=== PATIENT | male | born 1975 | race Caucasian/White ===

== ENCOUNTER 2023-08-14 13:03 | Emergency (ER) | payer MEDICAID, SELFPAY ==
--- NOTE | 2023-08-14 13:08 | ED.URI ---
HPI - URI/Sore Throat General Chief Complaint: Upper Respiratory Infection Stated Complaint: Cough,Sore Throat,Facial Swelling Time Seen by Provider: 08/14/23 13:08 Source: patient Mode of arrival: ambulatory Limitations: no limitations History of Present Illness HPI Narrative: Patient is a 47-year-old male who presents with left lower jaw facial swelling. Patient states it has been swollen for 3 months but significantly worsened the last 3 or 4 days. Patient reports his lymph nodes are also swollen and does remain unchanged. Denies any dental pain but states most of his teeth are gone any has very poor dentition. Also reports pain in left ear and decreased hearing. Denies any fevers, chills, nausea, vomiting, diarrhea. Denies any better taste in mouth. Does report he is starting to have trouble swallowing due to swelling. Also reports he feels like his left eye starting to swell. Related Data Home Medications Medication Instructions Recorded Confirmed gabapentin 300 mg tablet 300 mg PO BID 08/14/23 08/14/23 Allergies Allergy/AdvReac Type Severity Reaction Status Date / Time No Known Allergies Allergy Verified 08/14/23 13:19 Review of Systems Review of Systems: All systems reviewed & are unremarkable except as noted in HPI and below Constitutional: Constitutional: Denies body ache(s), Denies chills, Denies fatigue, Denies fever(s), Denies headache(s), Denies malaise and Denies weakness Eyes: Eyes: Denies blurry vision, Denies itchy eyes and Denies loss of vision ENT: Denies otalgia, Denies headache(s), Reports hearing loss, Denies nasal congestion, Denies sinus pain, Denies sore throat and Reports other (Left mandibular swelling, difficulty swallowing) Cardiovascular: Cardiovascular: Denies chest pain, Denies irregular heart rhythm and Denies dyspnea Respiratory: Respiratory: Reports cough and Denies dyspnea Gastrointestinal: Gastrointestinal: Denies abdominal pain, Denies diarrhea, Denies nausea and Denies vomiting Musculoskeletal: Musculoskeletal: Denies back pain, Denies myalgias and Denies arthralgias Integumentary/Breasts: Skin/Breast: Denies pruritus and Denies rash Neurologic: Denies headache(s), Denies loss of vision and Denies weakness Psychiatric: Psychiatric: Reports no additional psychiatric complaints Endocrine: Endocrine: Denies fatigue Allergic/Immunologic: Allergic/Immunologic: Denies itchy eyes PMFSH Comments At time of signature, agree with nursing past medical, surgical, social and family history. There is no relevant family history pertinent to the presenting complaint. Exam Const: General: cooperative, healthy appearing, comfortable, no acute distress and well nourished Nutritional Appearance: well nourished Orientation/consciousness: patient oriented x3 Limitations: no limitations HENMT: Head: normal to inspection, normocephalic and atraumatic Ears: hearing grossly normal bilaterally, external ears normal, TM normal on the right, EAC's normal, no periauricular adenopathy and TM abnormal dull on the left and erythematous on the left Face/Nose/Sinus: Normal external nose present, Normal nasal mucous membranes and turbinates present, normal facial exam, sinuses nontender and face symmetric Face and sinus: normal facial exam, sinuses nontender, face symmetric and edema on the left mandible Mouth: Yes Normal oral and palatal mucosa present, Yes lip normal, Yes tongue normal, Yes Normal salivary glands and ducts present, Yes oropharynx normal and Yes moist mucous membranes Mouth/tongue images: 1. Area of erythema and wasting appearance, no necrosis. No drainage present. Very poor dentation with multiple teeth missing on both top and bottom. Teeth and gingiva: poor dentition Throat: posterior oropharynx normal, tonsils normal and uvula midline Eyes: General: appearance normal, both eyes and all related structures Alignment and Position: alignment normal and position normal Periorbi
[2023-08-14 13:24] VITALS: BP 156/88; PULSE 87; RESP 16; TEMP 36.2; O2SAT 98
== END 2023-08-14 14:12 | disposition short-term general hospital (02) ==
PROVIDERS: Emergency Provider Nurse Practitioner Family
DX: R22.0 Localized swelling, mass and lump, head (principal)
CPT/HCPCS: 99212; G0463

== ENCOUNTER 2023-08-14 14:30 | Inpatient (IN) | payer MEDICAID, SELFPAY ==
--- NOTE | ~2023-08-14 | CT_ITS ---
EXAMINATION: CT brain wo/w & sinus wo con DATE: 08/15/2023 10:13 INDICATION: 2 months of sinus congestion. Lymphadenopathy. TECHNIQUE: 1. Computed tomography (CT) of the head was performed without and with 100 mL Omnipaque-[address] of the paranasal sinuses was performed without intravenous contrast. Sagittal and coronal reconst ructions were obtained. The mA was adjusted according to patient size. Iterative reconstruction techn ique was employed. The dose-length product of the combined procedures was 1593 mGy-cm. COMPARISON: CT neck dated 08/14/2023 FINDINGS: Head CT: No acute intracranial hemorrhage, acute infarction or abnormal extra axial fluid collection. Small ol d lacunar infarct in the left frontal lobe white matter. Ventricles are normal and symmetric. No mass /mass effect. No abnormally enhancing brain lesions. Cerebral arterial arborization appears symmetric . Bilateral mastoid effusions. The orbits are normal. Paranasal sinus CT: Mild mucosal thickening the right maxillary and ethmoid sinuses. More prominent moderate mucosal thic kening in the left sphenoid, maxillary and ethmoid sinuses, the latter nearly completely opacified. T here is posterior layering fluid at the left frontoethmoidal recess, the left sphenoid sinus and in t he left maxillary sinus with greater than simple fluid attenuation potentially representing blood. Th ere is occlusion of the bilateral ostiomeatal units. Poorly delineated soft tissue mass which occupies the dental director and parapharyngeal spaces with effac ement of the intervening fat planes. Again seen is a destructive lytic lesion involving the body and ramus of the left mandible. Additional more subtle osteolysis is seen with permeative appearance to t he posterior wall of the left maxillary sinus and left pterygoid plates. There are multiple enlarged right level 2 jugular chain lymph nodes. Additional prominent left-sided cervical lymphadenopathy see n more caudally on the prior neck CT. IMPRESSION: 1. Poorly defined soft tissue mass concerning for malignancy involving enlarging the left dental director and parapharyngeal spaces which appears to invade the adjacent left mandible, the posterior wall of t he left maxillary sinus and the left pterygoid plates. 2. Bilateral cervical lymphadenopathy which is likely metastatic. Patient has a planned ultrasound-gu ided biopsy. 3. Small old lacunar infarct in the left frontal lobe white matter. Otherwise unremarkable pre and po stcontrast CT of the brain. 4. Extensive sinus disease with left-sided predominance. There is some higher attenuation fluid withi n the left maxillary sinus which could represent blood related to the posterior osteolysis. Reviewed, dictated and finalized at location A. LIANCE QUALITY PERFORMANCE ANALYST IMPRESSION: 1. Poorly defined soft tissue mass concerning for malignancy involving enlargin g the left dental director and parapharyngeal spaces which appears to invade the adj acent left mandible, the posterior wall of the left maxillary sinus and the lef t pterygoid plates. 2. Bilateral cervical lymphadenopathy which is likely metastatic. Patient has a planned ultrasound-guided biopsy. 3. Small old lacunar infarct in the left frontal lobe white matter. Otherwise u nremarkable pre and postcontrast CT of the brain. 4. Extensive sinus disease with left-sided predominance. There is some higher a ttenuation fluid within the left maxillary sinus which could represent blood re lated to the posterior osteolysis.
--- NOTE | ~2023-08-14 | US_ITS ---
EXAMINATION: US biopsy lymph node DATE: 08/16/2023 13:03 INDICATION: Bilateral cervical lymphadenopathy TECHNIQUE: The procedure including the risks and benefits was discussed with the patient. Risks discu ssed included bleeding and infection. The patient understood the risks and agreed to proceed. The sk in overlying the left neck was prepped and draped in usual sterile fashion. Anesthetic was administe red with 1% lidocaine subcutaneously. An 18 gauge core biopsy needle was advanced under continuous u ltrasound observation to the lesion of interest. 7 core biopsy specimens were obtained, 3 placed in formalin and 4 in RPMI media. The needle was removed and the entry site was cleaned and dressed. Po st procedure ultrasound demonstrated a small amount of hemorrhage along the biopsy site of the biopsi ed lymph node. FINDINGS: Ultrasound images demonstrate multiple enlarged left cervical lymph nodes including a likel y necrotic 2.3 cm left submandibular lymph node. Subsequent images demonstrate biopsy needle advanced into a 2.2 x 1.5 cm left jugular chain lymph node. IMPRESSION: 1. Successful Ultrasound-guided biopsy of one of multiple enlarged left cervical lymph node suspiciou s for metastatic disease. Reviewed, dictated and finalized at location A. ITION PARTNER IMPRESSION: 1. Successful Ultrasound-guided biopsy of one of multiple enlarged left cervica l lymph node suspicious for metastatic disease.
--- NOTE | ~2023-08-14 | CT_ITS ---
EXAMINATION: CT chest abdomen pelvis w con DATE: 08/15/2023 10:14 INDICATION: Lymphadenopathy, lung nodules TECHNIQUE: Transaxial computed tomographic images of the chest, abdomen, and pelvis were obtained aft er the administration of 100 cc of Omnipaque 350 intravenous contrast. The dose-length product (DLP) was 804.27 mGy-cm. Automated exposure control and iterative reconstruction technique were employed. COMPARISON: 08/14/2023 FINDINGS: CHEST CT: Soft tissue masses in the submandibular space on the left likely reflect lymphadenopathy. There are a lso pathologically enlarged left posterior cervical triangle lymph nodes. There are multiple ill-defi janine nodules of the lungs with an upper lung zone predominance. There is mild dependent atelectasis. N o pleural effusion or pneumothorax. The heart size is normal. ABDOMEN/PELVIS CT: The liver, pancreas, gallbladder, and adrenal glands are normal. There is mild splenomegaly. The kidn eys are unremarkable. There are prominent, but not pathologically enlarged, retroperitoneal lymph nod es. No free intraperitoneal gas or evidence of bowel obstruction. Surgical changes at the cecum likel y reflect appendectomy. There is mild lumbar spondylosis at L5-S1. Contrast from yesterday's CT is se en in the urinary bladder. IMPRESSION: 1. Ill-defined nodules of the lungs, likely infection/inflammation. Recommend CT follow-up given the suspicious findings in the neck to exclude underlying malignancy. 2. Mild splenomegaly. 3. Prominent, but not pathologically enlarged, retroperitoneal lymph nodes. 4. Soft tissue masses in the submandibular space on the left, likely lymphadenopathy. Reviewed, dictated and finalized at location B. D OPERATOR IMPRESSION: 1. Ill-defined nodules of the lungs, likely infection/inflammation. Recommend C T follow-up given the suspicious findings in the neck to exclude underlying mal ignancy. 2. Mild splenomegaly. 3. Prominent, but not pathologically enlarged, retroperitoneal lymph nodes. 4. Soft tissue masses in the submandibular space on the left, likely lymphadeno eva.
--- NOTE | ~2023-08-14 | CT_ITS ---
EXAMINATION: CT soft tissue neck w con DATE: 08/14/2023 19:56 INDICATION: Left jaw swelling and hoarseness TECHNIQUE: Computed tomography (CT) of the neck was performed with 75 mL Omnipaque-350 intravenous co ntrast. Automated exposure control and iterative reconstruction technique were employed. The dose-daylin gth product was 472.27 mGy-cm. COMPARISON: None FINDINGS: Lytic lesion in the body and ramus of the left mandible which erodes through both the medial and late ral sided cortices. No current pathologic fracture although this is at increased risk . There are enl arged submandibular and jugular chain lymph nodes concerning for metastatic disease. The largest subm andibular measures 2.4 x 1.9 cm heterogeneous attenuation suggesting secondary necrosis. Also of a co uple there is also enlarged right-sided level 2 jugular chain lymph node which measures 3.5 x 1.9 x 1 .1 cm. No other lytic bone lesions identified. Orbits are normal. Mucosal thickening in the paranasal sinuses with opacification multiple ethmoid ai r cells and some dependently layering fluid in the left maxillary and sphenoid sinuses. Small left ma stoid effusion. Submandibular and parotid glands are symmetric. Thyroid gland is unremarkable. The va sculature is patent and normal in caliber. Superior mediastinum is unremarkable. Mild cervical spondy losis. Respiratory motion mosaic attenuation in the visualized upper lungs likely related to expirato ry phase of imaging with some subsegmental air trapping related to small airway disease. There are fe w small ill-defined nodular opacities in the visualized upper lungs with appearance favoring infectio n over metastatic disease. IMPRESSION: 1. Osteolytic lesion in the left mandible concerning for malignancy which could be either primary or more likely metastatic. 2. Bilateral cervical lymphadenopathy also suspicious for metastatic disease. Recommend ultrasound-gu ided core needle biopsy. 3. A few small ill-defined nodular opacity in the bilateral upper lungs with appearance favoring infe ctious/inflammatory etiology over metastatic disease. Consider follow-up dedicated chest CT at full e xpansion. Could also consider including the abdomen and pelvis to assess for other potential etiologi es of primary disease. Reviewed, dictated and finalized at location A. EZER OPERATOR IMPRESSION: 1. Osteolytic lesion in the left mandible concerning for malignancy which could be either primary or more likely metastatic. 2. Bilateral cervical lymphadenopathy also suspicious for metastatic disease. R ecommend ultrasound-guided core needle biopsy. 3. A few small ill-defined nodular opacity in the bilateral upper lungs with ap pearance favoring infectious/inflammatory etiology over metastatic disease. Con vp scientific follow-up dedicated chest CT at full expansion. Could also consider inclu ding the abdomen and pelvis to assess for other potential etiologies of primary disease.
[2023-08-14 14:34] VITALS: BP 132/84; PULSE 94; RESP 16; TEMP 36.4; O2SAT 100
[2023-08-14] MEDS: SODIUM CHLORIDE 0.9% IV 1,000 ML 999 ML IV CONT (19:02)
[2023-08-14 19:08] LABS: Basophils Absolute Auto 0.1 K/mm3 (0.0-0.1); Basophils Percent Auto 0.8 % (0.2-1.2); Eosinophils Absolute Auto 0.4 K/mm3 (0-0.3); Eosinophils Percent Auto 7.5 % (0-4.4); Hematocrit 34.6 % (42.0-52.0); Hemoglobin 11.6 g/dL (14.0-18.0); Immature Granulocyte Absolute 0.01 K/mm3 (0.00-0.031); Immature Granulocyte Percent A 0.2 % (0-0.5); Lymphocytes Absolute Auto 0.45 K/mm3 (0.9-3.2); Lymphocytes Percent Auto 7.6 % (18.3-44.2); Mean Corpuscular HGB Conc 33.5 g/dl (32-36); Mean Corpuscular Volume 83.6 fl (80-100); Mean Platelet Volume 7.8 fl (7.4-10.4); Monocytes Absolute Auto 0.6 K/mm3 (0.1-0.6); Neutrophils Absolute Auto 4.4 K/mm3 (1.3-6.7); Neutrophils Percent Auto 73.9 % (45.5-73.1); Platelet Count Result 209 k/mm3 (150-375); Red Blood Count 4.14 M/mm3 (4.6-6.20); Red Cell Distribution Width 12.9 % (11.5-14.5); White Blood Count 5.9 K/mm3 (4.5-10.0)
[2023-08-14] MEDS: PIPERACILLIN/TAZ 4.5G/NS 100ML 4.5 GM/100 ML BAG IVPB (19:12)
--- NOTE | 2023-08-14 19:16 | ED.GENADULT ---
HPI - General Adult General Chief complaint: Unspecified Stated complaint: ear infection, swollen lymph nodes Time Seen by Provider: 08/14/23 18:14 Source: patient and RN notes reviewed Mode of arrival: ambulatory Limitations: no limitations History of Present Illness HPI narrative: This is a 47 year old male who presents for evaluation of left jaw swelling. Patient states he starting having an illness 2 -3 months ago. He states he first had mild cough and congestion, and this resolved after 1 week. He later developed right ear ache and sinus congestion but that resolved. He noticed 3 days ago he develop throat itching and hoarseness. He states drinking water seems to help with these symptoms. He also noticed lymph node swelling under left jaw that has gotten worse over past couple of days. He has chronically poor dentition. He has noticed mild left ear discomfort and feels pressure under his left cheek. He denies fever or chills. He was seen at [facility] today and he was sent to ER for further evaluation. Related Data Home Medications Medication Instructions Recorded Confirmed gabapentin 300 mg tablet 300 mg PO BID 08/14/23 08/14/23 Allergies Allergy/AdvReac Type Severity Reaction Status Date / Time No Known Allergies Allergy Verified 08/14/23 13:19 Review of Systems Constitutional: Constitutional: Denies weakness ENT: Reports change in voice, Reports otalgia, Reports nasal congestion and Reports post nasal drip Cardiovascular: Cardiovascular: Denies syncope, Denies rapid heart rate, Denies irregular heart rhythm, Denies leg edema and Reports dyspnea Respiratory: Respiratory: Denies chest congestion, Reports cough, Denies hemoptysis, Denies excessive phlegm production and Denies dyspnea Gastrointestinal: Gastrointestinal: Denies abdominal pain, Denies hematochezia, Denies diarrhea and Denies vomiting Genitourinary: Genitourinary: Denies hematuria, Denies dysuria, Denies penile discharge and Denies testicular pain Musculoskeletal: Musculoskeletal: Denies joint swelling, Denies loss of height and Denies muscle weakness Neurologic: Denies syncope, Denies focal weakness and Denies weakness PMFSH Surgical History Surgical History (Updated 08/14/23 @ 19:18 by Adriana Kowalski MD) H/O knee surgery Social History Social History (Updated 08/14/23 @ 19:18 by Adriana Kowalski MD) Tobacco type: e-cigarettes/vaping Substance use: never Exam Const: General: cooperative, comfortable and no acute distress Orientation/consciousness: patient oriented x3 Limitations: no limitations HENMT: Head: normal to inspection and normocephalic Ears: TM normal on the right and TM abnormal dull on the left Face/Nose/Sinus: Normal external nose present, Normal nares present and No nasal polyps present Face and sinus: sinuses nontender, no ecchymosis and no erythema Mouth: Yes lip normal, Yes moist mucous membranes, No audible dysphonia, No drooling, No muffled voice, Yes tongue abnormal other (left side tongue appears to be mildly elevated, uvula midline) and Yes other (soft floor of tongue) Teeth and gingiva: poor dentition Throat: uvula midline and no uvular edema Other: left submandibular firm area of swelling likely lymph node, no erythema, unlikely corinna Eyes: Pupils: Equal, round and reactive pupils present EOM: EOMs intact bilaterally Neck: Neck: full ROM, trachea midline and submandibular swelling Chest: Chest palpation & inspection: normal inspection of the chest Resp: Effort & Inspection: normal respiratory effort Auscultation: clear to auscultation bilaterally Cardio: Jugular venous distension: no JVD Rate: regular rate Rhythm: regular rhythm Skin: General skin exam: normal color and no rashes or lesions noted Neuro: General: patient oriented x3 Cranial nerves: Yes CN's II-XII intact bilaterally Psych: Appearance: grossly normal Mental Status: mental status grossly normal Speech and mo
[2023-08-14 19:19] LABS: Alanine Aminotransferase 12 U/L (6-50); Albumin Level 3.8 g/dL (3.5-5.1); Alkaline Phosphatase 77 U/L (38-126); Anion Gap 6 mmol/L (8-16); Aspartate Amino Transferase 22 U/L (17-59); Bilirubin,Total 0.7 mg/dL (0.2-1.3); Blood Urea Nitrogen 7 mg/dL (9-20); Calcium 10.1 mg/dL (8.4-10.2); Carbon Dioxide 34 mmol/L (22-30); Chloride 91 mmol/L (98-107); Estimated CRCL calculation 73 ml/min; Estimated Glomerular Filt Rate > 60; Glucose 106 mg/dL (65-110); Potassium 4.3 mmol/L (3.4-5.0); Sodium 131 mmol/L (137-145)
[2023-08-14 19:21] LABS: CRP 0.6 mg/dL (<1.0)
--- NOTE | 2023-08-14 21:10 | PM.IMHP ---
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 Presents to the emergency room after noting lymph nodes in the submandibular space present for the last 2 months or so along with left-sided swelling congestion of the nose and sore throat in the last week or so, patient denies any fevers, rigors, chills, muscle aches and pains, weight loss has had good appetite denies any dysphagia or odynophagia. Denies a finding lymphadenopathies at any other site. Preliminary workup was significant for CT soft tissue of the neck was reported as: EXAMINATION: CT soft tissue neck w con DATE: 08/14/2023 19:56 INDICATION: Left jaw swelling and hoarseness TECHNIQUE: Computed tomography (CT) of the neck was performed with 75 mL Omnipaque-350 intravenous contrast. Automated exposure control and iterative reconstruction technique were employed. The dose-length product was 472.27 mGy-cm. COMPARISON: None FINDINGS: Lytic lesion in the body and ramus of the left mandible which erodes through both the medial and lateral sided cortices. No current pathologic fracture although this is at increased risk . There are enlarged submandibular and jugular chain lymph nodes concerning for metastatic disease. The largest submandibular measures 2.4 x 1.9 cm heterogeneous attenuation suggesting secondary necrosis. Also of a couple there is also enlarged right-sided level 2 jugular chain lymph node which measures 3.5 x 1.9 x 1.1 cm. No other lytic bone lesions identified. Orbits are normal. Mucosal thickening in the paranasal sinuses with opacification multiple ethmoid air cells and some dependently layering fluid in the left maxillary and sphenoid sinuses. Small left mastoid effusion. Submandibular and parotid glands are symmetric. Thyroid gland is unremarkable. The vasculature is patent and normal in caliber. Superior mediastinum is unremarkable. Mild cervical spondylosis. Respiratory motion mosaic attenuation in the visualized upper lungs likely related to expiratory phase of imaging with some subsegmental air trapping related to small airway disease. There are few small ill-defined nodular opacities in the visualized upper lungs with appearance favoring infection over metastatic disease. IMPRESSION: 1. Osteolytic lesion in the left mandible concerning for malignancy which could be either primary or more likely metastatic. 2. Bilateral cervical lymphadenopathy also suspicious for metastatic disease. Recommend ultrasound-guided core needle biopsy. 3. A few small ill-defined nodular opacity in the bilateral upper lungs with appearance favoring infectious/inflammatory etiology over metastatic disease. Consider follow-up dedicated chest CT at full expansion. Could also consider including the abdomen and pelvis to assess for other potential etiologies of primary disease. Review of Systems Review of Systems: Left side submandibular nodes, congested on of the nose, sore throat Constitutional: Constitutional: Denies chills, Denies fatigue, Denies fever(s), Denies malaise, Denies night sweats, Denies poor appetite and Denies weight loss Eyes: Eyes: Denies change in vision ENT: Denies dysphagia, Denies vertigo, Denies dizziness, Reports nasal congestion, Denies neck pain and Denies odynophagia Cardiovascular: Cardiovascular: Denies chest pain, Denies radiating jaw, neck or arm pain and Denies palpitations Respiratory: Respiratory: Denies chest congestion, Denies cough, Denies excessive phlegm production and Denies dyspnea Gastrointestinal: Gastrointestinal: Denies abdominal pain, Denies dyspepsia, Denies heartburn, Denies diarrhea, Denies nausea and Denies vomiting Genitourinary: Genitourinary: Denies dysuria and Denies flank pain
[2023-08-14 22:05] VITALS: BP 150/85; PULSE 72; RESP 15; O2SAT 99
[2023-08-14 22:37] VITALS: BMI 25.7
[2023-08-14 22:38] VITALS: BP 145/89; PULSE 79; RESP 16; TEMP 36.7; O2SAT 95
[2023-08-14] MEDS: SODIUM CHLORIDE 0.9% IV 1,000 ML 125 ML IV CONT (22:38)
[2023-08-14] MEDS: CLINDAMYCIN 600 MG/D5W 50 ML 600 MG/50 ML PIGGYBACK 100 MG IVPB (22:43)
--- NOTE | 2023-08-14 22:51 | ADMGEN ---
This patient, Brian Tilley, was admitted to Medical Room 345-. Patient/family oriented to hospital policies and general routines including ID bracelet, bed and alarms, visiting hours, pain management, procedures, bathroom and other care routines, personal items, smoking policy, room service/diet, and visiting hours. Information on how to activate the Rapid Response Team has been discussed. Patient/Family are encouraged to report perceived risks to care and to ask questions if they do not understand what they are told or what they should do.
[2023-08-15 04:24] VITALS: BP 116/74; PULSE 85; RESP 18; TEMP 36.8; O2SAT 98
[2023-08-15 06:07] LABS: Basophils Percent Auto 0.2 % (0.2-1.2); Eosinophils Percent Auto 0.2 % (0-4.4); Hematocrit 32.8 % (42.0-52.0); Immature Granulocyte Absolute 0.03 K/mm3 (0.00-0.031); Immature Granulocyte Percent A 0.6 % (0-0.5); Lymphocytes Absolute Auto 0.38 K/mm3 (0.9-3.2); Lymphocytes Percent Auto 7.5 % (18.3-44.2); Mean Corpuscular HGB Conc 33.5 g/dl (32-36); Mean Corpuscular Hemoglobin 28.1 pg (26-34); Mean Corpuscular Volume 83.7 fl (80-100); Mean Platelet Volume 8.3 fl (7.4-10.4); Monocytes Absolute Auto 0.1 K/mm3 (0.1-0.6); Monocytes Percent Auto 2.6 % (2.6-8.5); Neutrophils Absolute Auto 4.5 K/mm3 (1.3-6.7); Neutrophils Percent Auto 88.9 % (45.5-73.1); Platelet Count Result 216 k/mm3 (150-375); Red Blood Count 3.92 M/mm3 (4.6-6.20); Red Cell Distribution Width 12.9 % (11.5-14.5)
[2023-08-15] MEDS: CLINDAMYCIN 600 MG/D5W 50 ML 600 MG/50 ML PIGGYBACK 100 MG IVPB ×3 (06:17→22:40)
[2023-08-15] MEDS: SODIUM CHLORIDE 0.9% IV 1,000 ML 125 ML IV CONT ×3 (06:17→22:40)
[2023-08-15 06:24] LABS: Alanine Aminotransferase 11 U/L (6-50); Albumin Level 3.6 g/dL (3.5-5.1); Alkaline Phosphatase 66 U/L (38-126); Anion Gap 5 mmol/L (8-16); Aspartate Amino Transferase 21 U/L (17-59); Bilirubin,Total 0.6 mg/dL (0.2-1.3); Blood Urea Nitrogen 9 mg/dL (9-20); Calcium 9.2 mg/dL (8.4-10.2); Carbon Dioxide 30 mmol/L (22-30); Chloride 95 mmol/L (98-107); Estimated CRCL calculation 73 ml/min; Estimated Glomerular Filt Rate > 60; Glucose 127 mg/dL (65-110); Potassium 4.6 mmol/L (3.4-5.0); Sodium 130 mmol/L (137-145)
[2023-08-15] MEDS: GABAPENTIN 400 MG CAPSULE 800 MG PO ×3 (08:50→17:27)
--- NOTE | 2023-08-15 09:27 | PM.IMPN ---
Progress Note: A&P Assessment and Plan (1) Submandibular lymphadenopathy: Code(s): R59.0 - Localized enlarged lymph nodes Status: Acute Assessment and Plan: 08/14/23: (copied from chart) Admit to regular medical floor General surgery consult for excisional biopsy Patient started on antibiotics as well noted to have poor dentition Supportive care 08/15/23: CT soft tissue neck with contrast revealed osteolytic lesion in the left mandible concerning for malignancy which could be either primary or murmur likely metastatic, bilateral cervical lymphadenopathy also suspicious for metastatic disease, a few small ill defined nodule obesity in the bilateral upper lungs with appearance favoring infectious / inflammatory etiology over metastatic disease. CT of the chest abdomen pelvis with contrast revealed ill-defined nodules of the lungs, likely infection /inflammation, mild splenomegaly, prominent but not pathologically enlarged retroperitoneal lymph nodes, soft tissue masses in the submandibular space on the left likely lymphadenopathy. CT of the brain with and without contrast and sinus without contrast revealed poorly defined soft tissue mass concerning for malignancy involving enlarging the left production control coordinator and parapharyngeal spaces which appears to invade the adjacent left mandible, the posterior wall of the left maxillary sinus and the left pterygoid plates. bilateral cervical lymphadenopathy the which is likely metastatic, extensive sinus disease with left-sided predominance. There is some higher attenuation fluid within the left maxillary sinus which could represent blood related to the posterior osteolysis. family history of esophageal cancer, father , age mid 60s, . Liver enzymes normal, alk-phos 66, lactate dehydrogenase 191, TSH 0.241, calcium 8.2 will check an HIV panel white blood cell count is 5.0 general surgery was consulted plan for ultrasound-guided biopsy cervical lymph node tomorrow with pathology to follow procalcitonin 0.1, will continue clindamycin IV for now (2) Lesion of mandible: Code(s): M27.9 - Disease of jaws, unspecified Status: Acute Assessment and Plan: 08/14/23:(copied from chart) Lymph node for biopsy 08/15/23: see above Plan discussed CT results with patient and plan of care including ultrasound-guided biopsy of his lymph nodes. Time Spent With Patient Time with patient: Greater than 35 minutes Subjective Date/time seen: 08/15/23 09:27 Interval history: Interval history 08/15/23: This is a 47 year old male who presented tot he hospital on 08/14/23 with lymph node swelling that has been present for 2 months, congestion of the nose and sore throat in the last week. Work up in the hospital include a CT soft tissue neck with contrast that reveals osteolytic lesion in the left mandible concerning for malignancy, bilateral cervical lymphadenopathy suspicious for metastatic disease, a few small ill-defined nodular opacity in the bilateral upper lungs with appearance favoring infectious/inflammatory etiology versus metastatic disease. Patient has a family history of throat cancer. General surgery was consulted. He was given a dose of Zosyn and dexamethasone while in the ED, started on IVF, and clindamycin IV. On examination today patient is alert oriented x4. He reports a little discomfort around the left jaw But nothing that requires did take pain medication for at this time. He reports nasal congestion today. He states that he use sinus medication and a Neti pot at home which gave a little better relief. He also stated that his symptoms would get better making him think that he was on the mend and then he was started getting worse again and this has happened over the course of 2 months. He denies any dizziness, lightheadedness, headache, blurred vision, nausea, vomiting, diarrhea, shortness of breath, chest pain. He states that his father had esoph
--- NOTE | 2023-08-15 09:44 | PM.CNGS ---
Assessment and Plan Assessment and plan (1) Cervical lymphadenopathy: Code(s): R59.0 - Localized enlarged lymph nodes Status: Acute Assessment and Plan: CT soft tissues of neck showed bilateral cervical lymphadenopathy and left mandibular lesion concerning for malignancy, possible metastatic disease. Recommended ultrasound-guided core needle biopsy of cervical lymphadenopathy. Discussed case with Dr. Blank and the Hospitalist. Will order US-guided lymph node core needle biopsy. If unable to be done today, okay to start an oral diet since he is not having issues swallowing. Recommend to continue work-up for possible primary malignancy. (2) Lesion of mandible: Code(s): M27.9 - Disease of jaws, unspecified Status: Acute Plan I have discussed the patient's case and plan of care with Dr. Blank. History of Present Illness Consult details Consult date: 08/15/23 Reason for consult: other (Cervical lymphadenopathy, mandibular lesion) Requesting physician: Adriana Kowalski MD Narrative: This is a 47-year-old man who we have been asked to see in surgical consultation for cervical lymphadenopathy and left mandibular lesion. He has noticed bilateral neck swelling that he thought was lymph node swelling over the past 2.5-3 months. This has been mild and he has not seen a medica provider for this problems. Over the past week, he began to notice left facial swelling that became progressively more prominent over the past 2-3 days. He also reports attributed mouth dryness, productive cough, and nasal congestion intermittently over the past month. He has been waking up at night over the past few nights feeling like he can't breathe, which would improve after drinking water to wet his mouth and blowing his nose or doing the yesy pot. He presented to urgent care yesterday and was referred to the ER. In the ER, labs showed anemia with hemoglobin 11.6 and [address] hyp[address]. CT soft tissues of neck showed osteolytic lesion in the left mandible concerning for malignancy, bilateral cervical lymphadenopathy suspicious for metastatic disease recommend US-guided core needle biopsy, and a few small ill-defined nodular opacity in the bilateral upper lungs. He was admitted. He is seen on the medical floor. With further questioning, he denies recent weight loss, fatigue, change in bowel habits, or any other complaints. There is some pain associated with the left jaw swelling. He has been eating a solid diet and able to swallow without difficulties. Review of Systems Review of Systems: All systems reviewed & are unremarkable except as noted in HPI and below Constitutional: Constitutional: Reports as per HPI, Reports no additional constitutional complaints, Denies anorexia, Denies body ache(s), Denies chills, Denies fatigue, Denies fever(s), Denies lethargy, Denies weakness and Denies weight loss Respiratory: Respiratory: Reports as per HPI, Reports no additional respiratory complaints and Reports cough Gastrointestinal: Gastrointestinal: Reports as per HPI, Reports no additional gastrointestinal complaints, Denies melena, Denies hematochezia, Denies change in bowel habits, Denies diarrhea, Denies loose stools, Denies nausea and Denies vomiting PMFSH Surgical History Surgical History H/O knee surgery Family History Family History Father Throat cancer Social History Social History Smoking status: Never smoker Tobacco type: e-cigarettes/vaping Alcohol intake: never Substance use: never Lack of Transportation: YES Lack of Food: Never True Current Housing: I Have Housing Concerned About Future Housing: No Difficulty Paying Gas/Electric Bills: No Difficulty Paying for Meds: No Currently Unemployed: No Education: Trade/Vocational Certificate 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
[2023-08-15 10:31] LABS: Procalcitonin 0.1 ng/mL
[2023-08-15 10:51] LABS: Thyroid Stimulating Hormone 0.241 uIU/mL (0.465-4.680)
[2023-08-15 11:49] LABS: Lactate Dehydrogenase 191 U/L (120-246)
[2023-08-15 14:00] VITALS: BP 148/84; PULSE 81; RESP 18; TEMP 36.9; O2SAT 99
[2023-08-15 14:02] LABS: INR 1.1; Prothrombin Time 14.5 Seconds (11.1-14.7)
[2023-08-15 18:54] LABS: HIV 1/2 Ab P24 Ag Result Negative (Negative)
[2023-08-15 22:32] VITALS: BP 144/93; PULSE 72; RESP 20; TEMP 36.4; O2SAT 99
[2023-08-16] MEDS: CLINDAMYCIN 600 MG/D5W 50 ML 600 MG/50 ML PIGGYBACK 100 MG IVPB ×2 (05:24→16:01)
[2023-08-16 05:37] LABS: Basophils Percent Auto 0.8 % (0.2-1.2); Eosinophils Absolute Auto 0.3 K/mm3 (0-0.3); Eosinophils Percent Auto 5.8 % (0-4.4); Hematocrit 32.2 % (42.0-52.0); Immature Granulocyte Absolute 0.02 K/mm3 (0.00-0.031); Immature Granulocyte Percent A 0.4 % (0-0.5); Mean Corpuscular HGB Conc 34.2 g/dl (32-36); Mean Corpuscular Hemoglobin 28.9 pg (26-34); Mean Corpuscular Volume 84.7 fl (80-100); Mean Platelet Volume 8.3 fl (7.4-10.4); Monocytes Absolute Auto 0.4 K/mm3 (0.1-0.6); Monocytes Percent Auto 8.6 % (2.6-8.5); Neutrophils Absolute Auto 3.7 K/mm3 (1.3-6.7); Neutrophils Percent Auto 74.4 % (45.5-73.1); Platelet Count Result 185 k/mm3 (150-375); Red Cell Distribution Width 13.1 % (11.5-14.5)
[2023-08-16 05:47] LABS: Alanine Aminotransferase 12 U/L (6-50); Albumin Level 3.6 g/dL (3.5-5.1); Alkaline Phosphatase 65 U/L (38-126); Anion Gap 5 mmol/L (8-16); Aspartate Amino Transferase 24 U/L (17-59); Bilirubin,Total 0.7 mg/dL (0.2-1.3); Blood Urea Nitrogen 10 mg/dL (9-20); Calcium 8.9 mg/dL (8.4-10.2); Carbon Dioxide 29 mmol/L (22-30); Chloride 97 mmol/L (98-107); Estimated CRCL calculation 73 ml/min; Estimated Glomerular Filt Rate > 60; Glucose 91 mg/dL (65-110); Potassium 3.7 mmol/L (3.4-5.0); Sodium 131 mmol/L (137-145)
[2023-08-16 06:00] VITALS: BP 142/80; PULSE 68; RESP 21; TEMP 36.7; O2SAT 100
--- NOTE | 2023-08-16 09:51 | PM.IMPN ---
Progress Note: A&P Assessment and Plan (1) Submandibular lymphadenopathy: Code(s): R59.0 - Localized enlarged lymph nodes Status: Acute Assessment and Plan: 08/14/23: (copied from chart) Admit to regular medical floor General surgery consult for excisional biopsy Patient started on antibiotics as well noted to have poor dentition Supportive care 08/15/23: CT soft tissue neck with contrast revealed osteolytic lesion in the left mandible concerning for malignancy which could be either primary or murmur likely metastatic, bilateral cervical lymphadenopathy also suspicious for metastatic disease, a few small ill defined nodule obesity in the bilateral upper lungs with appearance favoring infectious / inflammatory etiology over metastatic disease. CT of the chest abdomen pelvis with contrast revealed ill-defined nodules of the lungs, likely infection /inflammation, mild splenomegaly, prominent but not pathologically enlarged retroperitoneal lymph nodes, soft tissue masses in the submandibular space on the left likely lymphadenopathy. CT of the brain with and without contrast and sinus without contrast revealed poorly defined soft tissue mass concerning for malignancy involving enlarging the left auto body mechanic apprentice and parapharyngeal spaces which appears to invade the adjacent left mandible, the posterior wall of the left maxillary sinus and the left pterygoid plates. bilateral cervical lymphadenopathy the which is likely metastatic, extensive sinus disease with left-sided predominance. There is some higher attenuation fluid within the left maxillary sinus which could represent blood related to the posterior osteolysis. family history of esophageal cancer, father , age mid 60s, . Liver enzymes normal, alk-phos 66, lactate dehydrogenase 191, TSH 0.241, calcium 8.2 will check an HIV panel white blood cell count is 5.0 general surgery was consulted plan for ultrasound-guided biopsy cervical lymph node tomorrow with pathology to follow procalcitonin 0.1, will continue clindamycin IV for now 08/16/23: (2) Lesion of mandible: Code(s): M27.9 - Disease of jaws, unspecified Status: Acute Assessment and Plan: 08/14/23:(copied from chart) Lymph node for biopsy 08/15/23: see above Plan Time Spent With Patient Time with patient: Greater than 35 minutes Subjective Date/time seen: 08/16/23 09:51 Interval history: Interval history 08/15/23: This is a 47 year old male who presented tot [facility] on 08/14/23 with lymph node swelling that has been present for 2 months, congestion of the nose and sore throat in the last week. Work up in the hospital include a CT soft tissue neck with contrast that reveals osteolytic lesion in the left mandible concerning for malignancy, bilateral cervical lymphadenopathy suspicious for metastatic disease, a few small ill-defined nodular opacity in the bilateral upper lungs with appearance favoring infectious/inflammatory etiology versus metastatic disease. Patient has a family history of throat cancer. General surgery was consulted. He was given a dose of Zosyn and dexamethasone while in the ED, started on IVF, and clindamycin IV. On examination today patient is alert oriented x4. He reports a little discomfort around the left jaw But nothing that requires did take pain medication for at this time. He reports nasal congestion today. He states that he use sinus medication and a Neti pot at home which gave a little better relief. He also stated that his symptoms would get better making him think that he was on the mend and then he was started getting worse again and this has happened over the course of 2 months. He denies any dizziness, lightheadedness, headache, blurred vision, nausea, vomiting, diarrhea, shortness of breath, chest pain. He states that his father had esophageal cancer and had surgery for his esophageal cancer but could not recall what type of
[2023-08-16 14:00] VITALS: BP 150/81; PULSE 98; RESP 16; TEMP 36.5; O2SAT 69
--- NOTE | 2023-08-16 15:34 | PM.DS ---
DS: Admitting Diagnosis Discharge Date 08/16/23 Admitting Diagnosis submandibular lymphadenopathy lesion of the mandible DS: Discharge Diagnosis Discharge Diagnosis (1) Submandibular lymphadenopathy: Code(s): R59.0 - Localized enlarged lymph nodes Status: Acute (2) Lesion of mandible: Code(s): M27.9 - Disease of jaws, unspecified Status: Acute DS: Summary Hospital Course Hospital Course: This is a 47 year old male who presents to the hospital On 08/14/2023 with lymph node swelling that has been present for 2 months, congestion of the nose, and a sore throat the last week. Workup in the hospital included a CT soft tissue neck with contrast that revealed osteolytic lesion in the left mandible concerning for malignancy, bilateral cervical lymphadenopathy he suspicious for metastatic disease, a small ill defined nodular opacities in the bilateral upper lungs with appearance favoring infectious / inflammatory etiology versus metastatic disease. Patient did report that his father had esophageal cancer at when he was in his mid 60s, currently . He was given a dose of Zosyn and dexamethasone while in the ED, started on IV fluids and clindamycin IV. On 08/15/[address] scan of the chest abdomen pelvis with contrast revealing ill-defined nodules of the load likely infection / inflammation, mild splenomegaly, prominent but not pathologically enlarged retroperitoneal lymph nodes, soft tissue masses in the submandibular space, left likely lymphadenopathy. he also had a CT of the brain and sinus with and without contrast revealing poorly defined soft tissue mass concerning for malignancy involving enlarging the left speeder machine operator and , the posterior wall of the left maxillary sinus and the left pterygoid plates, bilateral cervical lymphadenopathy which is likely metastatic, excess sinus disease with left-sided predominance. He was scheduled for ultrasound-guided biopsy of is cervical lymph nodes. On examination today patient alert and oriented x4, sitting in the bed. VSS, he is on room air, he is afebrile. He just got back from the ultrasound biopsy of cervical lymph nodes. He tolerated that well. Labs today reveal white blood cell count 5.0, hemoglobin 11.0, hematocrit 32.2, sodium 132 potassium 3.7, chloride 97, BUN 10, creatinine 1.1, HIV panel was negative, blood sugars ranging 91-127, calcium 8.9. patient is stable for discharge and we will call him when his pathology report comes in for further treatment. We will discharge him on Augmentin for the next 10 days to cover him for any kind of sinusitis/ sinus infection. Status at Discharge Cognitive/behavioral status at discharge: Alert oriented x4 Functional status at discharge: uses cane/walker Overall status at discharge: patient is progressing back to baseline Time Spent with Patient Time attestation: Total time spent providing and/or coordinating discharge services: Time spent: Greater than 30 minutes Exam Narrative: General: In no acute distress, well nourished Head: atraumatic, no encephalopathy Eyes: EOMI, PERRLA, sclera clear ENT: moist mucous membranes, nasal passages clear Neck: supple, no JVD,enlarged cervical lymph nodes Left greater than right, trachea midline Cardiac: Normal S1 and S2. No murmur, gallops or friction rubs, peripheral pulses intact. Respiratory: Lungs clear to auscultation, no adventitious lung sounds Gastrointestinal: soft, non-distended, non-tender, normoactive bowel sounds. : voiding without difficulty. Extremities: moves all extremities well, no edema, good ROM, strength 5/5 Skin: clean, dry, intact. No wounds or lesions. Neuro: Alert and oriented x4, cranial nerves intact, no neuro deficits. Psych: normal mood, normal affect, interactive DS: Data Data Completed and Pending Completed studies during hospitalization: soft tissue neck CT chest/abdomen/ pelvis CT head/sinuses CT ultrasound-guided
[2023-08-16] MEDS: GABAPENTIN 400 MG CAPSULE 800 MG PO (16:01)
[2023-08-16] MEDS: AMOXICILLIN/CLAVULANATE K 875-125 MG TAB 1 TABLET PO (17:15)
--- NOTE | 2023-08-16 17:54 | PM.PNGS ---
Progress Note: A&P Assessment and Plan (1) Cervical lymphadenopathy: Code(s): R59.0 - Localized enlarged lymph nodes Status: Acute Assessment and Plan: s/p U/S guided bx, no issues, await path, ok to dc from surgical standpoint Subjective Subjective Date/Time Seen: 08/16/23 17:54 Interval history: no acute issues, no c/o, no issues c eating, breathing Review of Systems Review of Systems: All systems reviewed & are unremarkable except as noted in HPI and below Exam Const: General: cooperative, comfortable and no acute distress HENMT: Head: normal to inspection, normocephalic and atraumatic Neck: Neck: full ROM, trachea midline, lymphadenopathy, no JVD and submandibular swelling Resp: Auscultation: clear to auscultation bilaterally Cardio: Rate: regular rate Rhythm: regular rhythm GI: Inspection: normal to inspection Objective Data Vital Signs Vital Signs: Vital Signs - 24 hr 08/15/23 20:00 08/15/23 22:32 08/16/23 06:00 Temperature 36.4 C 36.7 C Pulse Rate 72 68 Respiratory Rate 20 21 H Blood Pressure 144/93 H 142/80 H Pulse Oximetry 99 100 Oxygen Delivery Room Air 08/16/23 14:00 Temperature 36.5 C Pulse Rate 98 Respiratory Rate 16 Blood Pressure 150/81 H Pulse Oximetry 69 L Oxygen Delivery Intake/Output Intake/Output: Intake & Output 08/14/23 08/14/23 08/15/23 08/16/23 00:59 23:59 23:59 23:59 Intake Total 3972 784 Balance 3972 784 Meds/Results Medications: Active Medications Generic Name Dose Route Start Last Admin Trade Name Freq PRN Reason Stop Dose Admin Amoxicillin/Clavulanate Potassium 1 tablet 08/16/23 16:30 08/16/23 17:15 Amoxicillin/Clavulanate K 875-125 Mg Tab PO 1 tablet Q12HR AMY Administration Gabapentin 800 mg 08/14/23 23:05 08/16/23 16:01 Gabapentin 400 Mg Capsule PO 800 mg TID AMY Administration Ondansetron HCl 4 mg 08/14/23 21:28 Ondansetron Inj 4 Mg/2 Ml Vial IV PUSH Q4H PRN Nausea Radiology Results: ITS Impressions Soft Tissue Neck CT 08/14/23 20:36 IMPRESSION: 1. Osteolytic lesion in the left mandible concerning for malignancy which could be either primary or more likely metastatic. 2. Bilateral cervical lymphadenopathy also suspicious for metastatic disease. Recommend ultrasound-guided core needle biopsy. 3. A few small ill-defined nodular opacity in the bilateral upper lungs with appearance favoring infectious/inflammatory etiology over metastatic disease. Consider follow-up dedicated chest CT at full expansion. Could also consider including the abdomen and pelvis to assess for other potential etiologies of primary disease. Chest/Abdomen/Pelvis CT 08/15/23 10:34 IMPRESSION: 1. Ill-defined nodules of the lungs, likely infection/inflammation. Recommend CT follow-up given the suspicious findings in the neck to exclude underlying malignancy. 2. Mild splenomegaly. 3. Prominent, but not pathologically enlarged, retroperitoneal lymph nodes. 4. Soft tissue masses in the submandibular space on the left, likely lymphadenopathy. Head/Sinuses CT 08/15/23 11:06 IMPRESSION: 1. Poorly defined soft tissue mass concerning for malignancy involving enlarging the left magician/illusionist and parapharyngeal spaces which appears to invade the adjacent left mandible, the posterior wall of the left maxillary sinus and the left pterygoid plates. 2. Bilateral cervical lymphadenopathy which is likely metastatic. Patient has a planned ultrasound-guided biopsy. 3. Small old lacunar infarct in the left frontal lobe white matter. Otherwise unremarkable pre and postcontrast CT of the brain. 4. Extensive sinus disease with left-sided predominance. There is some higher attenuation fluid within the left maxillary sinus which could represent blood related to the posterior osteolysis. Lymph Node Biopsy Ultrasound 08/16/23 13:21 IMPRESSION: 1. Successful Ultrasound-guided biopsy of one of multiple enlarged
== END 2023-08-16 18:10 | disposition home or self-care (01) | DRG 694 ==
LOC: ANHED 18:55 → ANH3MED 21:57
PROVIDERS: Nurse Practitioner Family; Admitting Provider Internal Medicine; Emergency Provider General Practice; Visit Provider Nurse Practitioner Acute Care
DX: C77.0 Secondary and unspecified malignant neoplasm of lymph nodes of head, face and neck (principal); C80.1 Malignant (primary) neoplasm, unspecified; M27.9 Disease of jaws, unspecified; F17.290 Nicotine dependence, other tobacco product, uncomplicated
CPT/HCPCS: 36415; 38505; 70470; 70486; 70491; 71260; 74177; 76942; 80053; 82248; 83615; 84145; 84443; 85025; 85610; 85730; 86140; 86703; 88305; 88333; 88342; 96361; 96365; 96367; 96375; 99285; A9270; G0378; G0379; G0432; J1100; J2543; J7030; Q9967

== ENCOUNTER 2025-03-09 15:29 | Emergency (ER) | payer OTHER, SELFPAY ==
--- NOTE | ~2025-03-09 | XR_ITS ---
XR heel LT min 2V Ordering provider: LAWRENCE Hendrix History: . r/o heel spur vs stress fracture . Comparison: None. FINDINGS: BONES: No acute fracture or dislocation. JOINT SPACES: Well maintained. SOFT TISSUES: Normal. Calcaneal spur. IMPRESSION: No acute osseous abnormality. Calcaneal spur. Reviewed, dictated and finalized at location A.
--- NOTE | 2025-03-09 15:32 | ED.LOWEXIN ---
HPI - Extremity Injury (Lower) General Chief Complaint: Extremity Injury, Lower Stated Complaint: Lt Foot Pain Time Seen by Provider: 03/09/25 15:32 patient presents to the [facility] with complaints of pain to the left heel or on the bottom of the foot that began about 1 week ago. Patient reports that the current medication that he is on does help with chest resting type pain to this area but when he is up walking and putting any pressure on this pain medication he takes is not help with the symptoms. Denies any fall, trauma, or injury to this area. Patient does report he has recently started walking home from work which is about 1/4 mi but has been doing this for about 2 months. Patient denies any pain, swelling, bruising, or wound to this area Related Data Home Medications ?Medication ?Instructions ?Recorded ?Confirmed ?Last Taken ?Type gabapentin 800 mg tablet 800 mg PO TID 08/14/23 08/14/23 Unknown History naproxen 500 mg tablet 500 mg PO BID PRN Pain, Mild 08/14/23 08/14/23 Unknown History benralizumab 30 mg/mL subcutaneous mg subcut 03/09/25 Unknown History auto-injector (Fasenra Pen) budesonide-formoterol HFA 80 inhalation 03/09/25 Unknown History mcg-4.5 mcg/actuation aerosol inhaler (Symbicort) famotidine 40 mg tablet mg 03/09/25 Unknown History gabapentin 300 mg capsule mg 03/09/25 Unknown History hydroxyzine HCl 25 mg tablet mg 03/09/25 Unknown History ipratropium 0.5 mg-albuterol 3 mg ml inhalation 03/09/25 Unknown History (2.5 mg base)/3 mL nebulization soln methadone 10 mg tablet mg 03/09/25 Unknown History metoclopramide HCl 5 mg tablet mg 03/09/25 Unknown History prednisone 10 mg tablet mg 03/09/25 Unknown History Allergies Allergy/AdvReac Type Severity Reaction Status Date / Time No Known Allergies Allergy Verified 03/09/25 15:32 Review of Systems Constitutional: Constitutional: Reports as per HPI, Denies chills, Denies fatigue and Denies fever(s) Eyes: Eyes: Reports no additional eye complaints ENT: Reports system reviewed and no additional complaints, except as documented Cardiovascular: Cardiovascular: Reports no additional cardiovascular complaints Respiratory: Respiratory: Reports no additional respiratory complaints Gastrointestinal: Gastrointestinal: Reports no additional gastrointestinal complaints Genitourinary: Genitourinary: Reports no additional male genitourinary complaints Musculoskeletal: Musculoskeletal: Reports as per HPI, Reports arthralgias, Denies joint swelling and Denies muscle cramps Integumentary/Breasts: Skin/Breast: Reports as per HPI, Denies breast mass, Denies pruritus and Denies rash Neurologic: Reports as per HPI Psychiatric: Psychiatric: Reports no additional psychiatric complaints Endocrine: Endocrine: Reports no additional endocrine complaints Hematologic/Lymphatic: Hematologic/Lymphatic: Reports no additional hematologic/lymphatic complaints Allergic/Immunologic: Allergic/Immunologic: Reports no additional allergic/immunologic complaints PMFSH Surgical History Surgical History H/O knee surgery Family History Family History Father Throat cancer Social History Social History Smoking status: Never smoker Tobacco type: e-cigarettes/vaping Alcohol intake: never Substance use: never Lack of Transportation: YES Lack of Food: Never True Current Housing: I Have Housing Concerned About Future Housing: No Difficulty Paying Gas/Electric Bills: No Difficulty Paying for Meds: No Currently Unemployed: No Education: Trade/Vocational Certificate 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e or Family Care: No Spiritual care concerns: No Exam Const: General: healthy appearing and no acute distress; No diaphoretic or ill appearing Nutritional Appearance: well nourished Orientation/consciousness: patient oriented x3 Limitations: physical limitations Resp: Effort & Inspection: normal respiratory effort Cardio: Rate: regular rate Skin: General skin exam: normal color Rashes: no rashes Wounds: no wounds Neuro: General: patient oriented x3 and moves all extremities Speech: normal speech Gait exam (Neuro): gait abnormal (using cane, limited by pain in left heel and chronic left knee pain ) Extrem: Left lower extremity: foot Details: normal capillary refill, normal to inspection, tenderness Location: of the calcaneus Details: point tenderness and with squeeze, toes with normal ROM, no edema, vascular exam Details: dorsalis pedis pulse present, posterior tibial pulse present and normal capillary refill, tendon exam active flexion normal and active extension normal and motor-sensory exam two point discrimination normal, light-touch normal and pin-prick normal; Negative for abnormal to inspection, no unusual warmth, no edema, no abrasions, no lacerations, no ecchymosis, no crepitus, no foreign bodies and no puncture wound Psych: Mental Status: mental status grossly normal Affect: normal affect Attitude: cooperative Course Course Level of Care: Express Care Visit MDM - Extremity Injury (Lower) MDM Narrative Medical decision making narrative: chemotherapy 3 months ago unsure of specific type. Concern for osteoporosis /stress fracture versus bone spur will obtain x-ray. Discharge instructions reviewed with patient, as well as provided in writing per nursing staff. The instructions also include specific and strict return/GO TO THE ER as well as f/u information. All questions have been answered, and the patient deny any further questions with discharge and discharge plan. Differential Diagnosis Differential diagnosis: Likely ankle sprain and strain, puncture wound of foot and other ( Stress fracture, bone spur) Medical Records Attestation: I reviewed the patient's medical records. Discharge Plan Discharge Clinical Impression: Calcaneal spur of left foot Patient Disposition: Home Condition: Stable Instructions: Antibiotic Form, Heel Spur (ED) Additional Instructions: there are no fractures noted on x-ray. Distension a heel spur as suspected. Anti-inflammatories are typically are past options for treatment. May use Aleve, ibuprofen, naproxen, or Advil to help with the symptoms. Also topical Voltaren gel is a good option. Attempt to get heel inserts to cushion the area where the heel spur is located also recommend follow-up with podiatry for further evaluation and possible other treatments for symptoms Patient Language: Macedonian Prescriptions: No Action prednisone 10 mg tablet ipratropium-albuterol 0.5 mg-3 mg(2.5 mg base)/3 mL solution for nebulization INHALATION methadone 10 mg tablet famotidine 40 mg tablet metoclopramide HCl 5 mg tablet gabapentin 300 mg capsule hydroxyzine HCl 25 mg tablet budesonide-formoterol [Symbicort] 80-4.5 mcg/actuation HFA aerosol inhaler INHALATION Fasenra Pen 30 mg/mL auto-injector SUBCUT gabapentin 800 mg Tablet 800 mg PO TID naproxen 500 mg Tablet 500 mg PO BID PRN (Reason: Pain, Mild) Follow-up/Referrals: Santosh Anthony DPM [Physician] - ( as needed) PHYSICIAN,RETAIL OPERATIONS MANAGER [Primary Care Provider] - Time of Disposition: 16:20
--- OUTSIDE RECORDS SUMMARY | 2025-03-09 15:32 | XMS_ITS | Referral Summary ---
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 infection at this time, but of note has recent CLABSI history. Ddx could include nonspecific viral syndrome, bacteremia, UTI (but no apparent sx at this time). - S/P IV Fluids - Encourage PO intake - Flonase, mucinex for congestion sx - imodium for diarrhea - Defer abx at this time but low threshold to initiate broad spectrum if clinically deteriorating, persistent fevers - Bcx NGTD Prolonged Q-T interval on ECG 03/17/2024 Assessment & Plan (03/24/2024 2:33 PM CDT): Qtc 438 on admission -> 474 after initiation of multiple QT-prolonging agents. Subsequently has been stable ~450 - monitoring while adjusting methadone and other meds - K>4, Mg >2 - avoid further QT prolonging medications Severe malnutrition 03/14/2024 Assessment & Plan (03/18/2024 11:38 AM CDT): Follow dietitian service recommendations Head and neck cancer 03/12/2024 Assessment & Plan (12/06/2024 2:22 PM POWDER AND PRIMER CANNING LEADER): Metastatic SCC L maxillary sinus, p16 +, dx 09/2023, s/p palliative radiation (10/2023), carboplatin/paclitaxel/pembrolizumab (-02/2024), f/b pembrolizumab (04/2024-Last on 11/26). Follows with Dr. Polo. Next f/u scheduled for 12/17 Last received keytruda 11/26 He will follow up for further treatment - none while inpatient Assessment & Plan (03/24/2024 2:33 PM CDT): Stage IV OP SCC, with intracranial extension evident on CT 09/2023, follows with Dr. Polo. Started palliative radiation 10/2023, carboplatin/paclitaxel 11/2023, further cycles delayed due to hospitalizations --> recent scans 02/08 with evidence of disease progression, though this was in the setting of chemotherapy delays. Last pembrolizumab 02/20/24. Complicated by severe cancer-related pain requiring dilaudid SOLUTION SPECIALIST, stopped 03/22. - d/w palliative care MD, recommended the below regimen with plans for outpatient follow up within 2 weeks of discharge: - continue PRN MSIR 30 q3 with dilaudid 1mg q3 IV for breakthrough - return to SWIFT TENDER Fentanyl patch 250mcg q72h (increased 03/15 to 300mcg without additional benefit) - continue methadone 10mg BID (increased 03/19) + 5mg mid-day (added 03/23) Pancytopenia 03/12/2024 Assessment & Plan (08/07/2024 1:00 PM CDT): WBC and plt started trending down since 07/29, now plateau 'ed. WBC 2.6, Plts 90-100s - Vit B12, copper wnl Assessment & Plan (03/19/2024 12:59 PM CDT): 03/12/2024: Hgb 10.5; MCV 77.2; Plt 130; WBC 1.4 ANC 0.8. Previously attributed to chemotherapy. 12/22/2023: Vitamin B12 521 12/22/2023: Ferritin 148; Iron 21; TIBC 281; Transferrin saturation 7 Reviewed w/ oncology. He is still in the time window for it being from chemo -> neupogen HIV, hepatitis A, hepatitis B, hepatitis C, ehrlichia/anaplsamosis, EBV/CMV without acute infection Parvo B19 processing ANC improved w/ neupogen x1, but then downtrending again. H/O: pneumonia 03/12/2024 Assessment & Plan (08/14/2024 10:07 AM POWDER AND PRIMER CANNING LEADER): Treated for organizing pna in most recent admission. CT shows improvement. He has finished abx and tapering steroids. BAL cultures negative. - Planned f/u with pulm in 4 weeks Assessment & Plan (03/19/2024 1:00 PM CDT): Recent admission 03/01-03/09/24. Presented with 3 days of tenderness to port site, fevers, vomiting, diarrhea. Neutropenic at the time. Blood cultures no growth to date. ID professional housing consultant recommended port removal. Port removed by IR on 03/07 with port site cultures negative. Plan was to treat with ciprofloxacin 500 mg b.i.d. and doxycycline 100 mg b.i.d. from 03/08 to 03/14. 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 Polo. Recent scans 02/08 with evidence of disease progression, though this was in the setting of chemotherapy delays and he does appear to be clinically improving from recent Oncology notes. Last pembrolizumab 02/20/24. - Med Onc c/s Neutropenic fever 03/02/2024 Assessment & Plan (03/07/2024 4:16 PM CDT): Reports 3 days of tenderness to port site, with subsequent fevers, vomiting, and diarrhea. Some tenderness/erythema near port site. Last used 02/20/23 for pembro. Placed 10/2023. He is neutropenic, ANC 0.1. - Port accessed in ED to assess patency, appeared to be working. Will attempt to de-access. - Will need full evaluation for neutropenic fever with blood cultures, urine culture, RPP pending - Blood cultures x2 peripheral obtained prior to antibiotics, blood culture from port x1 obtained after initiation antibiotics - Vancomycin/cefepime (03/02 -) - Port removed by IR on 03/07. Port site Cx obtained Pancytopenia due to antineoplastic chemotherapy 02/14/2024 Pneumonia of left lung due t o infectious organism, unspecified part of lung 02/10/2024 Left facial swelling 01/24/2024 Assessment & Plan (01/24/2024 6:44 AM CDT): Patient reports worsening left facial swelling for 3 weeks, intermittent swelling episodes prior to that Completed chemotherapy for SCC 3 weeks ago Facial swelling unrelated to chemotherapy sessions as per patient No signs of Respiratory distress from facial/neck swelling at this time If there is new onset Respiratory distress, consult ENT for evaluation Oncology recommendations appreciated Acute maxillary sinusitis 01/24/2024 Assessment & Plan (01/24/2024 2:12 PM CDT): Symptom improvement with starting doxycycline. -transition to oral doxy Severe protein-calorie malnutrition 01/24/2024 Assessment & Plan (08/07/2024 1:00 PM CDT): Continue multivitamins. Follow-up RD recs Assessment & Plan (04/19/2024 9:47 PM CDT): BMI 18 here, iso stage IV SCC and failure to thrive Assessment & Plan (01/24/2024 2:14 PM CDT): Nutrition consulted Acute on chronic anemia 12/25/2023 Assessment & Plan (12/25/2023 5:18 PM CDT): Iron profile: Iron 21, TIBC 281, Transferrin Sat 7% with Ferritin 148. Folate > 20 with vitamin B12 521. Haptoglobin 227. Likely combination of iron deficiency and anemia of chronic disease - Started ferrous sulfate - Had hemoglobin drop from 10 to 7.8 overnight with no signs/symptoms of acute bleeding. Given blood transfusions on 12/20 for hgb 6.6 - Continue with routine monitoring Pneumonia 12/24/2023 Assessment & Plan (12/09/2024 10:27 AM POWDER AND PRIMER CANNING LEADER): One week of cough, shortness of breath,green phlegm discharge Viral panel 11/28/[address] Chest/Abdomen/Pelvis 11/28/2024:No significant interval change in bilateral patchy peribronchial ground glass opacities, favored to be inflammatory in etiology. Sputum culture 11/29/2024: MSSA On 2 liters of oxygen support Wheezing and rhonchi persists despite completing 5 days of prednisone which pulmonology consulted for further evaluation Completed three days of azithromycin, sputum culture negative for atypical bacterial infection Plan: S/p 7 day course for pneumonia treatment - Per Pulmonology his persistent wheezing and imaging findings are of not of entirely clear etiology - he completed 5 days of solumedrol, transitioned to prednisone 12/08 with taper: - pred 80 x 5 days, pred 60 x 5, 40 x 5, 30 x 5, 20 x 5, 10 x 5, then leave at 5 mg daily until pulm follow-up. - PFTs completed 12/06 - also per pulm: bronchial hygiene + saline nebs -> continue saline and other nebs on DC - I discussed abstinence of vaping with patient and he agreed, declined NRT at this time Assessment & Plan (12/25/2023 5:11 PM CDT): Febrile night of 12/21-12/22. Chest xray revealed new mild to moderate bilateral mid and lower lung somewhat nodular opacities seen, concerning for pneumonia - Cefepime (12/22 - ) and Vancomycin (12/22 -12/23 after MRSA swab negative) for now with plan to transition to PO antibiotics at discharge to complete 10 days of antibiotic therapy (end date 12/31) - MRSA swab negative - Blood cultures negative Nocturnal oxygen desaturation 12/24/2023 Assessment & Plan (12/25/2023 5:08 PM CDT): Possibly related to underlying NICHOLE - Nocturnal sleep study noted frequent desaturations - Sleep medicine consulted --> Inpatient vs outpatient sleep study Fluid level behind tympanic membrane of both ear s 12/23/2023 Assessment & Plan (12/24/2023 7:03 AM CDT): - Prednisone burst per ENT recommendations - Outpatient tympanostomy tube placement; will call [phone] to arrange Mixed conductive and sensori neural hearing loss of both ears 12/23/2023 Assessment & Plan (01/24/2024 6:44 AM CDT): Chronic hearing deficit Assessment & Plan (12/24/2023 7:02 AM CDT): - Audiology consulted; Pure tone audiometry was attempted, but could not be performed due to patient's somnolence. Will repeat testing 12/25 - ENT outpatient follow up as noted elsewhere Encounter for consultation 12/20/2023 Sudden right hearing loss 12/19/2023 Assessment & Plan (12/25/2023 5:10 PM CDT): -pending MRI of brain and internal auditory canal. MRI protocol will also image the sinuses as well --> revealed marked decreased size and extent of large trans- spatial mass centered in the left maxillary sinus; unchanged tumor extension into the clivus and left petrous apex, internal auditory canals are intact; left orbital proptosis has improved; new small multifocal areas of T2/FLAIR hyperintensity in the left calvarium > right medial anode worker likely reflecting evolving changes of recent completed radiotherapy. - ENT consulted; likely related to bilateral middle ear effusions. Will discharge with plan to have close follow up with outpatient ENT Transaminitis 12/19/2023 Assessment & Plan (12/21/2023 8:00 AM CDT): unclear etiology. CT A/P with mild biliary dilatation - RUQ US 12/19 showed no intrahepatic/extrahepatic bilary ductal dilatation; decompressed gallbladder with mild periportal/gallbladder wall edema; no evidence of cholecystitis - Bactrim and valacyclovir can cause elevated transaminitis. Holding valacyclovir for now - Trend LFTs with daily CMPs --> downtrending. Total bilirubin wnl Hemoptysis 12/19/2023 Assessment & Plan (12/24/2023 6:47 AM CDT): Suspect hemoptysis is 2/2 worsening intracranial extension of his known left sphenoid sinus mass. Respiratory panel negative. Initially held Eliquis on admission - No further episodes of hemoptysis. Hemoglobin stable --> resumed home eliquis Chronic deep vein thrombosis (DVT) 12/19/2023 Assessment & Plan (11/30/2024 12:38 AM POWDER AND PRIMER CANNING LEADER): Unclear why he self dc'ed xarelto Continue Xarelto while inpatient Assessment & Plan (08/16/2024 10:52 AM POWDER AND PRIMER CANNING LEADER): Continue xarelto, briefly held for procedure with Therapeutic lovenox bridge. Postprocedure back on Xarelto. Continue Assessment & Plan (07/11/2024 4:56 PM CDT): Hx of DVT in 11/2023, was on AC which he has not taken for a while due to lack of refills and issues w/ prior auth. -Continue Xarelto. - pre-auth has been approved. Assessment & Plan (04/23/2024 6:24 PM CDT): Prior DVT 11/2023, put on eliquis and per onc noted (04/09) patient was to be on lifelong AC therapy. However, he notes he has not been taking eliquis as he thought he was off of the medication. - hold home eliquis 5 mg BID for tcp Assessment & Plan (03/24/2024 2:32 PM CDT): 11/22/23 ultrasound venous duplex bilateral legs showed chronic DVT with post thrombotic changes in the RIGHT lower popliteal vein. - continue home eliquis Assessment & Plan (03/02/2024 3:50 AM CDT): Continue Eliquis 5 mg BID Assessment & Plan (01/24/2024 2:13 PM CDT): Hold eliquis. Start lovenox in case of procedures or further decompensation Assessment & Plan (12/24/2023 6:45 AM CDT): Chronic RLE dvt noted on prior hospital stay. Holding eliquis. Starting lovenox for DVT ppx while patient has hemoptysis. 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 Last admission had palliative care consult and optimized pain regimen: fentanyl patch 250mcg q72hr + methadone 07/14/10 (TID dosing) with MSIR 30 q3 PRN for breakthrough. Pain controlled at this time - Reordered above regimen and home gabapentin, tylenol PRN - Given persistent nausea, re-engaged palliative care on 04/23. Decreased regimen to: Fentanyl patch 150mcg q72hr, methadone 10 TID, MSIR 30 Q3hr. Right-sided sensorineural hearing loss Assessment & Plan (11/21/2023 6:22 PM POWDER AND PRIMER CANNING LEADER): Patient reports new progressive R sided hearing loss since ~11/19/23. -Unclear etiology. Low suspicion for carboplatin toxicity given timing -trialed debrox gtts for wax without improvement -ENT consulted. Appreciate recs Demoralization 11/17/2023 Assessment & Plan (12/25/2023 5:07 PM CDT): Presented with a history of demoralization in the setting of cancer diagnosis/symptoms with recent sucide attempt early November 2022. Denies any suicidal/homicidal ideation or hallucinations. - Psychiatry consulted: No indication for 1:1 sitter, suicide precautions, or psychiatric admission at this time. Recommending continuing Mirtazapine 15mg for possible appetite benefit - Outpatient referral to [facility]; provide patient with Zoom meeting resources - Continue to encourage/motivate patient; spiritual counseling prn Rhinorrhea 11/17/2023 Assessment & Plan (11/18/2023 5:28 PM POWDER AND PRIMER CANNING LEADER): Patient reports constant clear watery nasal drainage from nose. -Beta-2 transferrin negative suggests against CSF leak -treatment of SCC as discussed elsewhere -symptomatic management Suicide attempt 11/15/2023 Assessment & Plan (11/17/2023 5:20 PM POWDER AND PRIMER CANNING LEADER): SI attempt on 11/13 w/ L wrist cutting and attempted opioid overdose. Patient cites uncontrolled pain as provocation for suicide attempt and expressed regret on presentation in ER. Cleared by psych in ER for suicide risk. -Does not appear suicidal any longer. CTM -siteman counseling for support. Patient amenable Wrist laceration 11/15/2023 Assessment & Plan (11/17/2023 5:20 PM POWDER AND PRIMER CANNING LEADER): secondary to suicide attempt -Plastics consulted. S/p wash & repair & splint. NWB LUE. 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 CT unchanged from prior. Cont home pain medications--methadone , MSIR 45mg q3h PRN, add IV dilaudid 2nd line, cont gabapentin 900mg TID, cont duloxetine 60mg every day Assessment & Plan (08/14/2024 10:07 AM POWDER AND PRIMER CANNING LEADER): Diagnosed in 09/2023. p16+ squamous cell carcinoma. S/p carbo/paclitaxel 11/18/23. Also got xRT with . Last seen 05/2024. Last dose of pembrolizumab 05/21/24. Planned for scans at next follow up. He ended up getting MRIs inpt in last admission but non-diagnostic 2/2 extreme motion artifact. - F/u with [facility] as outpatient Assessment & Plan (11/20/2023 3:25 PM POWDER AND PRIMER CANNING LEADER): Diagnosed 09/2023. Extensive involvement of L face, sinuses, and L orbit with intracranial extension. Completed palliative radiation 10/24 - 11/09 ([address] head/neck/face 11/15/23 concerning for disease progression w/ increased size of primary tumor and increased osseous destruction, including anterior cranial fossa, L middle cranial fossa, clivus, L mandible, L parietal bone, L mandible, C7. -Oncology consulted. Received C1 Carboplatin/taxol inpatient (D1 = 11/18). Will get pembro OP. -Has been on high dose dex since 10/10/23 for pain and facial swelling. Dex tapered to 4 mg q 8 hrs (11/20 - current). Continue to wean as tolerated -OI ppx for prolonged steroids: valtrex & bactrim Assessment & Plan (11/07/2023 3:13 PM POWDER AND PRIMER CANNING LEADER): Diagnosed on biopsy 10/07/2023 of left jaw mass s/p p16 positive squamous cell carcinoma, non-keratinizing type. PET CT at that time showed locally invading hypermetabolic left facial mass with bilateral cervical LAD and bilateral pulm nodules c/f mets. Patient was discussed at tumor board at that time and plan was to proceed with palliative radiation therapy. S/p radiation therapy since 10/24/22, 3 sessions so far. Presenting today with vision loss. CT head and facial bones in the ED concerning for tumor progression, new pathologic mandibular fracture (left) - Follows with Dr. Polo - IV dex 4mg q6h > reducing to PO dex 4mg q8h 11/04. - francesca continue on 4mg q8h until follow up - continuing radiation while inpatient - onc: currently no plan for inpt chemo Thrush 10/16/2023 Assessment & Plan (10/16/2023 3:32 PM POWDER AND PRIMER CANNING LEADER): Noted on exam here. -tried to Rx nystatin for dc but unaffordable for pt -advised oral hygiene, salt water gargles Anemia 10/16/2023 Assessment & Plan (04/19/2024 9:44 PM CDT): Likely related to ALBA and bone marrow suppression. Pt states he has not been taking iron supplementation recently. Persistently anemic near baseline (7.4 here from baseline ~8). - Trend CBC, consented, active T+S - Ordered repeat iron panel/ferritin/B12/folate, consider r/s of ferrous sulfate Assessment & Plan (10/16/2023 3:33 PM POWDER AND PRIMER CANNING LEADER): Hgb on day of discharge is 9.4 from 10-11s 3-4 days ago. No signs of bleeding likely post op bleeding and inflammation -repeat CBC at clinic visit this week Cancer 10/12/2023 Cancer related pain 10/06/2023 Assessment & Plan (12/05/2024 12:25 PM POWDER AND PRIMER CANNING LEADER): Continue Morphine IR Q3 prn and methadone; added prn dilaudid on 12/04 EKG w/o prolonged QTC as of 11/28 Assessment & Plan (08/17/2024 9:38 AM POWDER AND PRIMER CANNING LEADER): Overall improving since CN V3 block - Continue duloxetine 30 mg daily and gabapentin 900 mg TID, prn hydromorphone IV - Previously on methadone [id number]. Increased methadone to 30mg tid briefly and now switched back to home dose (9am-3pm-9pm) post procedure - Monitor QTc while on methadone - Consulted [facility] IR and underwent for L trigeminal nerve alcohol ablation on 08/15. Tolerated procedure well. Assessment & Plan (07/16/2024 6:45 PM CDT): Severe and requiring high amounts of opioid medication. Currently follows closely with palliative care for pain management. Pain worsened by current respiratory illness discussed elsewhere. -Palliative consulted and following, d/w them. -Fentanyl patch switched to methadone. Changed to 25 mg TID from 07/11. Was on 25-20-25 before. -Current pain regimen: continue methadone PO 25/20/25 mg, duloxetine 30 mg daily, gabapentin 900 mg TID, MSIR 45 mg q3h PRN, DC IV morphine 10 mg q4h on 07/11/24. QTC on EKG 07/10/24 WNL. And 466 ms on 07/15/24. PA for methadone approved. Patient is now discharged home. Assessment & Plan (04/23/2024 6:23 PM CDT): Home pain regimen : Fentanyl patch 100 mcg per hour x2 patches, fentanyl patch 50 mcg/hour x1 patch, MSIR 30 mg Q 3 p.r.n., methadone 10 mg b.i.d., methadone 5 mg daily with lunch, gabapentin 800 mg t.i.d. -restarted home meds -patient is on morphine 30 Q3, which only used 2 doses since admission. - Encouraged patient to use morphine as needed. As patient is not using the current pain meds, Upon discussion with pain management, they recommended to consult them if his pain is uncontrolled after utilizing all the p.r.n. dosing. Assessment & Plan (03/24/2024 2:31 PM CDT): See head and neck cancer problem Assessment & Plan (03/02/2024 3:59 AM CDT): - Fentanyl patch 300 mcg Q72H scheduled - PRN oxycodone 20 mg Q4H PRN, up to 40 mg Q4H PRN at home - Bowel regimen: Scheduled senna BID, can add miralax/Movantik if issues with constipation Assessment & Plan (11/21/2023 6:24 PM POWDER AND PRIMER CANNING LEADER): secondary to extensive disease and osseous destruction. -Received Dilaudid SOLUTION SPECIALIST for pain control (11/16 - 11/21) -continue fentanyl patch 175 mcg q 72 hrs & PO PRN oxycodone 40 mg q4 hrs prn. PRN IV dilaudid 2 mg q4 hrs prn breakthrough -adjunctive meds: gabapentin 800 TID Assessment & Plan (11/07/2023 3:13 PM POWDER AND PRIMER CANNING LEADER): At home, was on MScontin, and PRN oxycodone. Pain not controlled on this. - started fentanyl patch 100mcg on 11/03 PM --> increased fentanyl patch to 150mcg / day 11/05. Patient has had so much imrpovement in pain since starting this. Using oxycodone more sparingly, has not used morphine in > 36h - PA obtained for fentanyl Assessment & Plan (10/16/2023 3:32 PM POWDER AND PRIMER CANNING LEADER): Reported rapidly worsening left facial pain and swelling. Required SOLUTION SPECIALIST pump (D/Brendon 2/2 bradycardia and hypoxia episode on 10/06) - currently uptitrated to morphine ER 120 mg b.i.d, oxyIR 20mg q3h prn for moderate pain, oxyIR 30mg prn for severe pain. -Couldn't do simulation here given mouth swelling. Sim outpt. Palliative XRT early week of 10/24 to provide time for healing from dental surgery Dental caries extending into pulp 10/06/2023 Oral cancer 10/06/2023 Assessment & Plan (01/24/2024 2:13 PM CDT): SCC with mass in left maxillary sinus s/p chemo Q 3 weeks with last treatment a month ago Oncology consult recommendations appreciated -Pain management: oxycodone 40mg q4 hours prn for pain, iv dilaudid 0.5mg IV q4 hours prn 2nd line for pain Assessment & Plan (12/25/2023 5:13 PM CDT): - pain control: fentanyl 250mcg q3days, oxycodone 40mg q4 hours, morphine IV 4mg q4 hours. Monitor for hypersomnolence - patient mentioned that over the past few months, when he drinks any fluid or eats any soft/wet type of food, he can feel a little hole in my right cheek and then all of the liquid that I just put in my mouth comes pouring out of my nose. 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 He now presents with 1 week of worsening cough, night sweats, and extensive wheeze with pulmonary nodules and some upper lobe inflammatory appearing GGO. RVP negative, MRSA nares negative, blood cultures NGTDcryptococcal Ag negative, Histoplasma urine Ag, blastomyces EIA, aspergillus Ag pending. Differential includes infectious causes including fungal and non-tuberculous mycobacterial infection, SCC involvement of lung, ABPA in the setting of underlying undiagnosed eosinophilic asthma (elevated peripheral eosinophils, 0.8 on 06/25/24), and less likely immune checkpoint inhibitor mediated pneumonitis as patient has continued to receive ICI for months and CT findings improved. BAL studies have been negative to date. Etiology of nodules remains unclear, eosinophilic pneumonitis is also on differential. -BAL studies negative so far, cultures being followed Assessment & Plan (10/13/2023 5:35 PM POWDER AND [employer] CANNING LEADER): 48M presenting with newly diagnosed squamous cell carcinoma of the neck. PET/CT demonstrated multiple pulmonary nodules; most conspicuous of these is a hypermetabolic 1.0 cm spiculated right lung apex pulmonary nodule with maximum SUV of 3.8. IP was consulted for possible biopsy to upstage cancerous disease and guide cancer treatment. We reviewed the CT chest and PET/CT imaging. Based on the imaging we are unable to offer bronchoscopy/tissue biopsy of the pulmonary nodules given that they are too small and not accessible. There are no nodes in the the chest that are amendable to biopsy. Assessment & Plan (10/15/2023 10:39 AM POWDER AND [employer] CANNING LEADER): PET scan showed bilateral pulmonary nodules in the setting of head/neck cancer c/f lung mets. initially planned to bx pulm nodules on PET with EBV workup after tumor board discussion, but Discussed with ENT, onc, IP - Pulm nodules too small and not acessible. No nodes amenable to bx. See #SCC Dental caries 10/04/2023 Assessment & Plan (10/15/2023 10:43 AM POWDER AND [employer] CANNING LEADER): Panorex showed large destructive lesion in the left mandubular angle and body with pathological fractures, also showed extensive dental caries throughout the remaining maxillary teeth and left canine/premolars. Small periapical lucency and dental cavity of the residual right mandibular 2nd premolar. -On 10/12 [facility] did Surgical extraction of teeth #3,4,5,6,7,8,9,10,11,12,13,14,15,17,20,21,22,23,24,25,26,27,28,29. [id number] Alveoloplasty of upper right, lower right, lower left. [id number] removal of mandibular chris lower right, lower left -Post op instructions: You will need to have a follow up appointment with dentist for a healing check prior to radiation. The sutures will dissolve on their own. You will need a general dentist to make dentures, but wait until done with radiation to get dentures. Avoid hard crunchy foods until the surgical area is healed. DO NOT swish, spit, use straws, or do forceful sucking motions for at least 1 week after surgery. DO NOT smoke cigarettes or vape for at least 3 weeks. Avoid alcohol as this may impair the healing process for at least 1 week. Pain medications may cause nausea or vomiting if taken on an empty stomach. 1 teaspoon of salt in an 8 oz glass of warm water can begin 1 day after surgery and can be performed 2-3 times daily. DO NOT rinse, spit, or swish forcefully but instead allow the solution to gently exit out of the mouth. Bone spicules which are tiny flecks of bone residing in the socket(s) of the surgical area may work themselves loose and come to the surface. They can feel sharp or have a white appearance and look similar to a piece of tooth. These pieces work their way out of the socket(s) naturally and require no need for further assistance unless they come bothersome. In such cases please call our office for assistance. Please contact the office if you are experiencing: throbbing pain that doesn t respond to medications, bleeding that continues even when you apply pressure, a fever that lasts for more than 24 hours after surgery, or trouble swallowing or breathing. Follow up with your oral surgeon in 2-4 weeks by calling the office at [phone]. Squamous cell carcinoma of neck 09/30/2023 Assessment & Plan (07/15/2024 2:18 PM CDT): Stage IV OP SCC, with intracranial extension evident on CT 09/2023, follows with Dr. Polo. S/p palliative radiation 10/2023, carboplatin/paclitaxel 11/2023, further cycles delayed due to hospitalizations --> recent scans 02/08 with evidence of disease progression, though this was in the setting of chemotherapy delays. Now on single-agent pembrolizumab, last cycle 05/21/2024. Course has been complicated by severe cancer-related pain discussed elsewhere. - Med/Onc following, d/w them. - Restaging CT neck showed mild decrease in infiltrating mass. -MRI brain orbit, face - non diagnostic. B/l mastoid effusion. - last MRI 03/2024 showed V3 involvement. - Pain control as elsewhere Assessment & Plan (05/15/2024 12:01 PM CDT): Stage IV OP SCC, with intracranial extension evident on CT 09/2023, follows with Dr. Polo. Started palliative radiation 10/2023, carboplatin/paclitaxel 11/2023, further cycles delayed due to hospitalizations --> recent scans 02/09/24 with evidence of disease progression, though this was in the setting of chemotherapy delays. Last pembrolizumab 04/30/2024. His course has been complicated by severe cancer- related pain. Palliative care consulted in previous 04/2024 admission and pain regimen was adjusted with good control prior on following regimen: fentanyl patch 150mcg q72hr + methadone 10/10 (TID dosing) with MSIR 30 q3 PRN for breakthrough. Assessment & Plan (04/23/2024 6:21 PM CDT): Stage IV OP SCC, with intracranial extension evident on CT 09/2023, follows with Dr. Polo. Started palliative radiation 10/2023, carboplatin/paclitaxel 11/2023, further cycles delayed due to hospitalizations --> recent scans 02/08 with evidence of disease progression, though this was in the setting of chemotherapy delays. Last pembrolizumab 04/09/2024. His course has been complicated by severe cancer-related pain; required dilaudid [employer] for effective management in prior hospitalization. Pall care consulted and pain regimen was adjusted with good control prior to discharge: fentanyl patch 250mcg q72hr + methadone //10 (TID dosing) with MSIR 30 q3 PRN for breakthrough. - Onc folllowing - Consented for blood, T+S active - Pain control as elsewhere - Port consideration as outpatient once viral illness is improved - Transfuse to Hb >8 Assessment & Plan (10/15/2023 10:40 AM P[employer]DER AND [employer] CANNING LEADER): New diagnosis of head and neck cancer in the last 3 months with pathology resulted at [facility]. Suspected locally invasive squamous cell cancer of head and neck with concern for metastasis. CT scan with extensive tumor involving left face, intracranial extension into cavernous sinus, osseous destruction or sphenoid bone, sinuses, orbit with metastatic cervical lymphadenopathy. Seen by ENT, Oncology, Neurosurgery, Ophthalmology MRI brain tumor protocol with and without contrast was consistent with the CT scan finding above. PET scan showed locally invading hypermetabolic left facial mass with bilateral cervical LAD and bilateral pulm nodules c/f mets. -Oncology recommending testing for PD-L1, P 16/HPV for prognostication. -Path from OSH c/w poorly differentiated carcinoma likely squamous cell per Med Onc. -IR guided core biopsy of jaw mass was done here on 10/07, path with p16+ SCC. HPV testing pending -Discussed at tumor board 10/13. No surgical plans. Rad Onc will Plan Palliative XRT early week of 10/24 to provide time for healing from dental surgery -Ophthalmology recommended methylprednisone 250 mg every 6 hours initially which was discontinued few days later, and that has resulted in recurrence of left facial swelling and pain. Restarted again at 250 mg daily, now tapering, at dex 8mg bid 10/11-p. Last eval'ed 10/11. No concern for compartment syndrome. Artifical tears prn Congenital dislocation of left patella 7 Methamphetamine use disorder, severe, dependence 03/25/2017 Acute upper respiratory infection 02/27/2016 Pain and swelling of knee, left 12/09/2015 Assessment & Plan (08/14/2024 10:05 AM [employer]NING LEADER): Patient reported on 08/07 that he has been having left knee pain and swelling for the past 3 days. He underwent left patellectomy and multiple other knee surgeries on the left several years ago. He has chronic knee pain that occurs only occasionally but this time is constant daily. Tenderness and effusion noted, no erythema. No fever or chills. Clinically not concerning for septic arthritis. Knee x-ray showed osteoarthritis - Trial of topical diclofenac - Resolved. No indication for arthrocentesis anymore Assessment & Plan (05/15/2024 11:50 AM CDT): Takes gabapentin for chronic neuropathic LE pain and L knee pain, continued. Assessment & Plan (04/19/2024 9:20 PM CDT): Takes gabapentin for chronic neuropathic LE pain and L knee pain. - Continue home gabapentin 800 mg TID Patellar dislocation 06/10/2011 Irritable bowel syndrome 04/22/2011 Congenital deformity of knee joint 04/22/2011 Hay fever 04/22/2011 Alcohol abuse 12/25/2010 Alcohol-induced mood disorder 12/25/2010 Joint derangement, lower leg 04/18/2008 Allergic rhinitis 02/01/2008 Insomnia, unspecified 05/13/2006 Resolved Problems Problem Noted Date Diagnosed Date Resolved Date Cough 11/28/2024 11/30/2024 Hyponatremia 07/29/2024 08/08/2024 Assessment & Plan (08/07/2024 1:05 PM CDT): 2/2 dehydration from nausea, vomiting and poor po intake. Improved with fluids. Nausea and vomiting 07/29/2024 08/07/20 Oropharyngeal carcinoma 03/18/202403/10 Assessment & Plan (03/18/2024 8:44 AM CDT): Stage IV SCC, with intracranial extension evident on CT 09/2023. 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 Asymptomatic for several days - COVID recovered 03/24 Pancytopenia 03/18/2024 07/12/2024 Assessment & Plan (07/03/2024 10:31 PM CDT): -supportive tx for Hb<7 and plts<10K. Assessment & Plan (04/24/2024 5:25 PM CDT): Chronic, in setting of SCC/chemotherapy. Hgb and WBC stable near baseline. Previously required neupogen, however no clear indication at this time. - Trend CBC, pt is consented - Anemia work-up as elsewhere -Platelets low- holding eliquis Assessment & Plan (03/20/2024 5:12 PM CDT): Has previously had pancytopenia, thought to be in setting of chemotherapy. Now with stable leukopenia and anemia, most likely 2/2 COVID-19 with underlying BM suppression from chemotherapy. Failure to thrive in adult 03/12/2024 0 03/20/2024 Assessment & Plan (03/17/2024 7:36 PM CDT): The patient's failure to thrive is likely due to his physical frailty. His frailty is evidenced by weight loss, exhaustion, and weakness. Plan: Treat pain adequately to maximize patient's daily function PT / OT consult for functional assessment Dietitian consult for previous caloric intake assessment and evaluation of caloric needs, malnutrition assessment Nausea control w/ zofran, compazine, and Zyprexa Hypokalemia 01/23/2024 03/20/2024 Assessment & Plan (03/18/2024 11:37 AM CDT): Replaced RALF (acute kidney injury) 11/15/2023 Assessment & Plan (08/07/2024 1:05 PM CDT): Pre-renal, 2/2 poor po intake. Resolved with fluids. Assessment & Plan (11/16/2023 4:13 PM P[employer]NING LEADER): Cr 1.48 on presentation. Likely pre renal given concurrent hyponatremia. Also has naproxen on med list but pt states has not taken in the last few days. S/p fluids in Ed, repeat Cr down to 1.00. - Daily BMP Vision loss of left eye 11/01/202307/11 Assessment & Plan (07/29/2024 5:13 PM CDT): Chronic problem. Assessment & Plan (06/26/2024 4:13 AM CDT): Blindness in L eye, appears to be chronic and stable since Oct 2023. Assessment & Plan (05/11/2024 4:19 AM CDT): Blindness in L eye. Chronic, no acute changes/eye pain Assessment & Plan (04/19/2024 9:38 PM CDT): Blindness in L eye. Chronic, no acute changes/eye pain Assessment & Plan (11/05/2023 1:31 PM P[employer]NING LEADER): Presenting with complete vision loss of left eye. CT in the ED concerning for tumor progression, new pathologic mandibular fracture (left), and increased gas and fluid predominantly within the left maxillary sinus with communication to the oral cavity, concerning for superimposed infection/phlegmon. Evaluated by ophthalmology in ED. No indicated procedures Hyponatremia 10/02/2023 12/06/2024 Assessment & Plan (12/03/2024 6:25 PM P[employer]NING LEADER): Chronic intermittent hyponatremia with Na levels between 126-135 Continue home medication salt tablets Follow Na levels Asymptomatic Assessment & Plan (10/01/2024 12:13 PM P[employer]DER AND [employer] CANNING LEADER): - Likely hypovolemic hypona vs SIADH. Has decrease PO intake and diarrhea Na 126. Started 09/10, oncologist gave IVF and started salt tabs -TSH normal and Euvolemic on exam - improved to 130 s/p IVF. Monitored off of salt tabs and improved to 135. - Discharging with out salt tabs. Assessment & Plan (08/29/2024 1:18 PM P[employer]DER AND [employer] CANNING LEADER): Na 127 likely 2/2 N/V with poor po intake. Received IV fluids after which it improved. Monitor Assessment & Plan (07/02/2024 5:40 PM CDT): - On 07/02, Na-135 - Hyponatremia resolved with good solute intake - restarted IVF on 07/02 - s/p Ure-Na - Monitor BMP closely Assessment & Plan (10/04/2023 7:53 AM P[employer]DER AND [employer] CANNING LEADER): Likely due to decreased intake, he says that he drinks large quantities of water - urine electrolytes sodium 26, chloride 26, potassium 23, urine Osom 191, serum Osmo 289 - NA cont to up trending. Cont to monitor - cont normal saline 75 cc an hour and trend serm sodium Psoriasis 12/05/2014 05/12/2024 Leukocytosis 05/30/2012 04/19/2024 Assessment & Plan (11/07/2023 3:13 PM P[employer] LEADER): On steroids at home. Likely in setting of steroids vs infection. CT head and facial bones showing increased gas and fluid predominantly within the left maxillary sinus with communication to the oral cavity, concerning for superimposed infection/phlegmon. HDS in the ED. Other than facial swelling, leukocytosis, no other focal signs and symptoms of infection. - Unasyn until 11/03 -> augmentin. Completed course today Immunizations Immunization Administration Dates Next Due Influenza, Quadrivalent, Spl it, Preservative Free, Intramuscular 10/01/2023 Influenza, Trivalent, Preservative Free, Intramu scular 08/02/2013 Pneumococcal Polysaccharide PPV23 06/06/2014 Tdap 11/15/2023 Social History Tobacco Use Types Packs/Day Years Used Date Smoking Tobacco: Never Smokeless Tobacco: Never Tobacco Cessation:Counseling Given: Not Answered Alcohol Use Standard Drinks/Week Comments Not Currently 0 (1 standard drink = 0.6 oz pur e alcohol) [facility] [employer] Answer Date Recorded In the past 12 months has [employer] electric, gas, oil, or water company threatened to shut off services in your home? No 11/30/2024 Social Connection and Isolat ion Panel [NHANES] Answer Date Recorded In a typical week, how many times do you talk on the phone with family, friends, or neighbors? More than three times a week 11/30/2024 How often do you get togethe r with friends or relatives? More than three times a week 11/30/2024 How often do you attend chur ch or catholic services? Never 11/30/2024 Do you belong to any clubs o r organizations such as tenriism groups, unions, fraternal or athletic groups, or school groups? No 11/30/2024 How often do you attend meet ings of the clubs or organizations you belong to? Never 11/30/2024 Are you , , di vorced, , never , or living with a partner? 11/30/2024 AUDIT-C Answer Date Recorded Q1: How often do you have a drink containing alcohol? Never 12/17/2024 Q2: How many drinks containi ng alcohol do you have on a typical day when you are drinking? Patient does not drink Q3: How often do you have si x or more drinks on one occasion? Never 12/17/2024 Overall Financial Resource Strain (CARDIA) Answe r Date Recorded How hard is it for you to pa y for the very basics like food, housing, medical care, and heating? Not very hard 11/30/2024 PHQ-2 Answer Date Recorded PHQ-2 Total Score 0 11/30/2024 Hunger Vital Sign Answer Date Recorded Within the past 12 months, y ou worried that your food would run out before you got the money to buy more. Never true 11/30/19 25 Within the past 12 months, t he food you bought just didn't last and you didn't have money to get more. Never true 11/30/2024 PRAPARE - Transportation Answer Date Re corded In the past 12 months, has l ack of transportation kept you from medical appointments or from getting medications? No 11/11 In the past 12 months, has l ack of transportation kept you from meetings, work, or from getting things needed for daily living? No 11/30/2024 Housing Stability Vital Sign Answer Steve e Recorded In the last 12 months, was t here a time when you were not able to pay the mortgage or rent on time? No 02/10/2024 In the last 12 months, how many places have you lived? 1 02/10/2024 In the last 12 months, was t here a time when you did not have a steady place to sleep or slept in a senior care (including now)? No 02/10/2024 Housing Stability Vital Sign Answer Steve e Recorded In the last 12 months, was t here a time when you were not able to pay the mortgage or rent on time? No 11/30/2024 In the past 12 months, how m any times have you moved where you were living? 0 11/30/2024 At any time in the past 12 m [facility], were you homeless or living in a senior care (including now)? No 11/30/2024 Personal Safety Answer Date Recorded Have you ever been in or are you currently in a harmful physical or emotional relationship or is someone making you feel afraid or unsafe? Denies 11/28/2024 Sex and Gender Information Value Date Recorded Sex Assigned at Not on file Legal Sex Male 3:48 AM P[employer]DER AND [employer]ING LEADER Gender Identity Male 10/31/2023 9:39 AM P[employer]DER AND [employer]NING LEADER Sexual Orientation Straight 10/31/2023 9: 39 AM P[employer]DER AND [employer]ER CANNING LEADER Last Filed Vital Signs Vital Sign Reading Time Taken Comments Blood Pressure 101/70 12/17/2024 2:02 PM CDT Pulse 86 12/17/2024 2:02 PM CDT Temperature 37.2 C (99 F) 12/17/2024 2:02 PM CDT Respiratory Rate 18 12/17/2024 2:02 PM CDT Oxygen Saturation 96% 12/17/2024 2:02 PM CDT Inhaled Oxygen Concentration - - Weight 75.5 kg (166 lb 6.4 oz) 12/17/2024 2:02 P M CDT Height 175.3 cm (5' 9) 11/28/2024 11:30 PM [employer]ING LEADER Body Mass Index 24.57 11/28/2024 11:30 PM P[employer] CANNING LEADER Plan of Treatment Not on file Medical Devices Implanted Type Area Hydrostatic Tester Device Identifier Shelf Expiration Date Model / Serial / Lot Screw Screw Left: Knee [place] Power[employer] Mri Airguard 8fr 1 Lumen Attachable Catheter Latex Free [id number] - [id number] Implanted:Qty: 1 on 11/11/2023 by Maximo Alejandra IV, MD at [facility] Right: Chest [place] [id number] 03/09/2025 [id number] / / [id number] Procedures Procedure Name Priority Date/Time Associated Diagnosis Comments PET/CT FDG SKULL TO THIGH Schedule Routine, Read Routine (OP Routine) 02/28/2025 2:49 PM CDT Squamous cell carcinoma of neck POCT GLUCOSE DEVICE Routine 02/28/2025 1 :03 PM CDT MRI FACE W WO CONTRAST Schedule Routine, Read Routine (OP Routine) 02/07/2025 2:24 PM CDT Head and neck cancer (HCC) Squamous cell carcinoma of neck CT SOFT TISSUE NECK W CONTRAST Schedule Routine, Read Routine (OP Routine) 02/04/2025 2:24 PM CDT Squamous cell carcinoma of neck CT CHEST W CONTRAST Schedule Routine, Read Routine (OP Routine) 02/04/2025 2:24 PM CDT Squamous cell carcinoma of neck OPIATES CONFIRMATION MS, URINE Routine 12/17/2024 1:13 PM CDT Head and neck cancer (HCC) Cancer associated pain METHADONE, URINE, CONFIRMATION Routine 12/17/2024 1:13 PM CDT Head and neck cancer (HCC) Cancer associated pain FENTANYL CONFIRMATION, MS URINE Routine 12/17/2024 1:13 PM CDT Head and neck cancer (HCC) Cancer associated pain EGFR STAT 12/17/2024 1:13 PM CDT Squamous cell carcinoma of neck DIFFERENTIAL AUTO Routine 12/17/2024 1:1 3 PM CDT Squamous cell carcinoma of neck DRUGS OF ABUSE SCREEN, URINE WITH REFLEX CONFIRMATION Routine 12/17/2024 1:13 PM CDT Head and neck cancer (HCC) Cancer associated pain CBC WITH AUTO DIFFERENTIAL Routine 12/17/2024 1:13 PM CDT Squamous cell carcinoma of neck COMPREHENSIVE METABOLIC PANEL STAT 12/17/2024 1:13 PM CDT Squamous cell carcinoma of neck EGFR Routine 12/09/2024 4:30 AM P[employer]ING LEADER DIFFERENTIAL AUTO Routine 12/09/2024 4:3 0 AM [employer] AND [employer]NING LEADER PHOSPHORUS Routine 12/09/2024 4:30 AM P[employer]DER AND [employer] CANNING LEADER COMPREHENSIVE METABOLIC PANEL Routine 12/09/2024 4:30 AM P[employer]DER AND [employer]ER CANNING LEADER MAGNESIUM Routine 12/09/2024 4:30 AM P[employer]DER AND [employer]ER CANNING LEADER CBC WITH AUTO DIFFERENTIAL Routine 12/09/2024 4:30 AM P[employer]DER AND [employer]ER CANNING LEADER POTASSIUM, WHOLE BLOOD Timed 12/08/2024 6:06 AM P[employer] AND [employer] CANNING LEADER EGFR Routine 12/08/2024 2:08 AM P[employer] AND [employer] CANNING LEADER DIFFERENTIAL AUTO Routine 12/08/2024 2:0 8 AM P[employer] AND [employer] CANNING LEADER PHOSPHORUS Routine 12/08/2024 2:08 AM P[employer]DER AND [employer]ER CANNING LEADER COMPREHENSIVE METABOLIC PANEL Routine 12/08/2024 2:08 AM P[employer] AND [employer] CANNING LEADER MAGNESIUM Routine 12/08/2024 2:08 AM P[employer]DER AND [employer] CANNING LEADER CBC WITH AUTO DIFFERENTIAL Routine 12/08/2024 2:08 AM P[employer]DER AND [employer]ER CANNING LEADER PEP THERAPY Routine 12/07/2024 1:00 PM P[employer] AND [employer]NING LEADER PEP THERAPY Routine 12/07/2024 8:00 AM P[employer] AND [employer] CANNING LEADER EGFR Routine 12/07/2024 12:56 AM P[employer] AND [employer] CANNING LEADER DIFFERENTIAL AUTO Routine 12/07/2024 12: 56 AM P[employer] AND [employer]ER CANNING LEADER PHOSPHORUS Routine 12/07/2024 12:56 AM P[employer]DER AND [employer]IMER CANNING LEADER COMPREHENSIVE METABOLIC PANEL Routine 12/07/2024 12:56 AM P[employer]DER AND [employer]ER CANNING LEADER MAGNESIUM Routine 12/07/2024 12:56 AM P[employer]DER AND [employer]ER CANNING LEADER CBC WITH AUTO DIFFERENTIAL Routine 12/07/2024 12:56 AM P[employer]DER AND [employer]ER CANNING LEADER HEPATITIS C ANTIBODY Routine 03/13/2024 5:12 AM CDT from Last 3 Months or Most Recently Relevant to Health Maintenance Results * PET/CT FDG Skull to Thigh (02/28/2025 2:49 PM CDT) Anatomical Region Laterality Modality N/A Positron Emissio n Tomography (PET) 02/28/2025 3:15 PM CDT Narrative 02/28/2025 3:31 PM CDT EXAM DESCRIPTION: PET/CT FDG SKULL TO THIGH REASON FOR STUDY: Squamous cell carcinoma of the neck, oropharyngeal carcinoma, status post radiation October 2023 and chemotherapy December 2024, PET-CT for restaging and subsequent treatment strategy. RADIOPHARMACEUTICAL: 11.8 mCi F-18 Fluorodeoxyglucose (FDG) via a right antecubital IV site. TECHNIQUE: The patient's fasting blood glucose level, measured by glucometer before injection of FDG, was 92 mg/dL. After intravenous administration of FDG, noncontrast CT images were obtained for attenuation correction and for fusion with emission PET images to allow for anatomical localization of PET findings. Emission PET images were then obtained. The area imaged spanned the region from the skull vertex to the thighs the uptake time was approximately 60 minutes. SUV max was normalized to body weight. COMPARISON: PET-CT 10/04/2023. CT neck soft tissue 02/04/[address] chest 02/04/2025. FINDINGS: For reference, a region of interest of the ascending thoracic aorta has a maximal SUV of 2.1 . For reference, a region of interest of the right hepatic lobe of the liver has a maximal SUV of 2.9. Head: Normal FDG uptake is seen in the included portion of the brain. Neck: Dramatic improvement in the PET-CT appearance of the previous site of disease in the left face, by PET there has been complete anatomic and metabolic resolution of disease with interval healing of the maxillofacial osseous structures. Please see the MRI face 02/07/[address] neck soft tissue 02/04/2025 for more detailed anatomic assessment. The previous hypermetabolic left cervical lymphadenopathy has resolved. There are right jugular chain lymph nodes as noted on the CT neck soft tissue, a level II a lymph node 1 cm with a maximal SUV of 2.4 and a level III lymph node 0.9 cm having a maximal SUV of 3.2, on the prior PET-CT the largest measured 1.6 cm maximal SUV 9.3 as remeasured. Chest: Previous hypermetabolic left supraclavicular lymphadenopathy shows anatomic and metabolic resolution. No hypermetabolic pulmonary nodule or mass. Few small semisolid nodular opacities are improved from the prior PET-CT. No hypermetabolic thoracic lymphadenopathy. Heart size normal. No pleural or pericardial effusion. Abdomen and Pelvis: Liver and spleen demonstrate normal activity without focal abnormal FDG uptake. Gallbladder unremarkable. Pancreas and both adrenal glands demonstrate normal FDG activity. Normal excretion of FDG from the kidneys with expected accumulation of radiotracer in the urinary bladder. There is mild wall thickening of the urinary bladder 0.6 cm. There are no hypermetabolic lymph nodes in the abdomen and pelvis. Physiologic bowel activity is present. Bones: Bone windows demonstrate no hypermetabolic acute or aggressive osseous lesions. IMPRESSION: Complete metabolic and complete or near complete anatomic resolution of previous left maxillofacial site of disease. See the separately dictated MRI face and CT neck soft tissue. Complete anatomic and metabolic resolution of the previous left cervical and supraclavicular lymphadenopathy. Decreased size and activity of the right jugular chain lymph nodes. Level of remaining activity is thought to be reactive without convincing evidence of malignancy. No evidence of FDG avid distant metastasis. THIS IS AN ELECTRONICALLY VERIFIED FINAL REPORT 02/28/2025 3:31 PM - Electronically signed by Dick Sanabria M.D. CH: Report ID: [id number] Reading Location: [id number] Procedure Note Dick Sanabria Jr., MD - 02/28/2025 EXAM DESCRIPTION: PET/CT FDG SKULL TO THIGH REASON FOR STUDY: Squamous cell carcinoma of the neck, oropharyngeal carcinoma, status post radiation October 2023 and chemotherapy December 2024, PET-CT for restaging and subsequent treatment strategy. RADIOPHARMACEUTICAL: 11.8 mCi F-18 Fluorodeoxyglucose (FDG) via a right antecubital IV site. TECHNIQUE: The patient's fasting blood glucose level, measured byglucometer before injection of FDG, was 92 mg/dL. After intravenous administrationof FDG, noncontrast CT images were obtained for attenuation correction andfor fusion with emission PET images to allow for anatomical localization ofPET findings. Emission PET images were then obtained. The area imaged spannedthe region from the skull vertex to the thighs the uptake time wasapproximately 60 minutes. SUV max was normalized to body weight. COMPARISON: PET-CT 10/04/2023. CT neck soft tissue 02/04/2025 and CTchest 02/04/2025. FINDINGS: For reference, a region of interest of the ascending thoracicaorta has a maximal SUV of 2.1 . For reference, a region of interest of theright hepatic lobe of the liver has a maximal SUV of 2.9. Head: Normal FDG uptake is seen in the included portion of the brain. Neck: Dramatic improvement in the PET-CT appearance of the previous siteof disease in the left face, by PET there has been complete anatomic and metabolic resolution of disease with interval healing of the maxillofacial osseous structures. Please see the MRI face 02/07/[address] neck soft tissue 02/04/2025 for more detailed anatomic assessment. The previous hypermetabolic left cervical lymphadenopathy has resolved. There are right jugular chain lymph nodes as noted on the CT neck softtissue, a level II a lymph node 1 cm with a maximal SUV of 2.4 and a level IIIlymph node 0.9 cm having a maximal SUV of 3.2, on the prior PET-CT the largest measured 1.6 cm maximal SUV 9.3 as remeasured. Chest: Previous hypermetabolic left supraclavicular lymphadenopathy shows anatomic and metabolic resolution. No hypermetabolic pulmonary nodule or mass. Few small semisolid nodular opacities are improved from the prior PET-CT. No hypermetabolic thoracic lymphadenopathy. Heart size normal.No pleural or pericardial effusion. Abdomen and Pelvis: Liver and spleen demonstrate normal activity withoutfocal abnormal FDG uptake. Gallbladder unremarkable. Pancreas and both adrenal glands demonstrate normal FDG activity. Normal excretion of FDG from the kidneys with expected accumulation of radiotracer in the urinary bladder. There is mild wall thickening of the urinary bladder 0.6 cm. There are no hypermetabolic lymph nodes in the abdomen and pelvis. Physiologic bowel activity is present. Bones: Bone windows demonstrate no hypermetabolic acute or aggressiveosseous lesions. IMPRESSION: Complete metabolic and complete or near complete anatomic resolution of previous left maxillofacial site of disease. See the separately dictatedMRI face and CT neck soft tissue. Complete anatomic and metabolic resolution of the previous left cervicaland supraclavicular lymphadenopathy. Decreased size and activity of the right jugular chain lymph nodes.Level of remaining activity is thought to be reactive without convincing evidenceof malignancy. No evidence of FDG avid distant metastasis. THIS IS AN ELECTRONICALLY VERIFIED FINAL REPORT 02/28/2025 3:31 PM - Electronically signed by Dick Sanabria M.D. CH: ROSY Report ID: [id number] Reading Location: [id number] Dinesh Polo MD IMG PET PROCEDURES Final Re sult * POCT glucose (02/28/2025 1:03 PM CDT) Glucose, POC 92 70 - 199 mg/dL Comment:Testing performed by : [facility], [address] [place] [address]., [id number] Blood 02/28/2025 1:03 PM CDT 02/28/2025 1:03 PM CDT Dinesh Polo MD LAB POCT ORDERABLES - DEVIC E Final Result Performing Organization Address City/State/[facility] Co or Phone Number [facility] [address] [facility] Department of Laboratories [place], [place] [id number] * MRI Face W WO Contrast (02/07/2025 2:24 PM CDT) Anatomical Region Laterality Modality Head and Neck N/A Magnetic Resonan ce 02/08/2025 7:48 AM CDT Narrative 02/08/2025 9:32 AM CDT EXAM DESCRIPTION: MRI MAXILLOFACIAL WITHOUT AND WITH CONTRAST REASON FOR STUDY: Squamous cell carcinoma of unspecified laterality and site of the neck of unspecified date of diagnosis, therapeutic interventions, and metastatic disease burden. No provided patient complaints. No further provision of past medical history. No provided past surgical history. 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 TECHNIQUE: Multiplanar imaging includes non-contrasted T1, T2, T1 fat saturation T2 fat saturation images prior to and following administration of contrast. Images saved to PACS. Patient motion artifact variably spanning multiple sequences compromises evaluation. COMPARISON: Relevant portions of CT soft tissue neck/chest 01/19/2025; MRI brain and orbits without contrast 08/29/2024; CT head/maxillofacial bones without contrast 08/27/2024; MRI brain/orbits/face without contrast 07/13/2024; MRI brain/orbits/face without and with contrast 03/14/2024; CT head/soft tissue neck with contrast 07/03/2024. FINDINGS: BONES: As below. Otherwise, please reference bone window CT imaging for further evaluation. SOFT TISSUES: Redemonstration of infiltrative mass of the left maxillary sinus (with robust mucosal thickening of the inferior left maxillary sinuses) and enhancing T2 hyperintense soft tissue changes extending through the left retromaxillary fat pad and sphenopalatine fossa with extension laterally and inferiorly about the left buccal and anode worker spaces to include variable non masslike enhancing signal abnormality of the left anode worker musculature and patchy marrow replacement within the ramus of the left mandible as well as enhancing osteonecrotic process in the body of the left mandible (as part of a permeative osseous process about the left basilar calvarial through maxillofacial bones architecture better evaluated on CT imaging) as well as superior extension along the left temporalis musculature favored as an amalgamation of posttreatment changes with residual disease. SINUSES: As above. Otherwise, multicompartmental variable mucosal thickening about the paranasal sinuses with variable opacification about the bilateral ethmoid air cells. NASAL CAVITY: Midline nasal septum. ORBITS: No acute abnormality. Ocular lenses and globes normal in conformation and position. TMJ: No acute abnormality. MASTOIDS: Redemonstration of bilateral mastoid effusions. BRAIN: Subtotal visualization of the intracranial contents. Redemonstration of enhancing T2 hyperintensity extending superiorly and through the left foramen ovale, without MR demonstration of invasion of the left Meckel's cave, 1.5 x 2 x 2 cm (CC by AP by TV) aggregation of sulcal to cortical-subcortical enhancing nodular foci, largest nodule approximately 1 cm longest single axis, of the medial aspect of the inferior temporal gyrus, with interval appearance of adjoining perilesional vasogenic edema of the anterior mesial temporal lobe and left temporal pole, consistent with perineural spread with intracranial invasion. No significant mass effect and no midline shift or herniation. OTHER: No other significant finding. IMPRESSION: 1. Patient motion artifact variably spanning multiple sequences compromises evaluation. 2. Re-evaluation of amalgamation of left maxillofacial posttreatment changes and residual disease as well as left foraminal ovale perineural spread with intracranial (left middle cranial fossa/temporal lobe) extension as detailed above. 3. Please reference CT soft tissue neck performed at the same time as this study for further evaluation. THIS IS AN ELECTRONICALLY VERIFIED FINAL REPORT 02/08/2025 9:32 AM - Electronically signed by Donald Burden M.D. GABI: GABI Report ID: [id number] Reading Location: [id number] Procedure Note Donald Burden MD - 02/08/2025 EXAM DESCRIPTION: MRI MAXILLOFACIAL WITHOUT AND WITH CONTRAST REASON FOR STUDY: Squamous cell carcinoma of unspecified laterality andsite of the neck of unspecified date of diagnosis, therapeutic interventions,and metastatic disease burden. No provided patient complaints. No further provision of past medical history. No provided past surgical history. 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 TECHNIQUE: Multiplanar imaging includes non-contrasted T1, T2, T1 fat saturation T2 fat saturation images prior to and following administrationof contrast. Images saved to PACS. Patient motion artifact variablyspanning multiple sequences compromises evaluation. COMPARISON: Relevant portions of CT soft tissue neck/chest 01/19/2025; MRI brain and orbits without contrast 08/29/2024; CT head/maxillofacial bones without contrast 08/27/2024; MRI brain/orbits/face without contrast 07/13/2024; MRI brain/orbits/face without and with contrast 03/14/2024; CT head/soft tissue neck with contrast 07/03/2024. FINDINGS: BONES: As below. Otherwise, please reference bone window CT imaging for further evaluation. SOFT TISSUES: Redemonstration of infiltrative mass of the left maxillary sinus (with robust mucosal thickening of the inferior left maxillarysinuses) and enhancing T2 hyperintense soft tissue changes extending through theleft retromaxillary fat pad and sphenopalatine fossa with extension laterallyand inferiorly about the left buccal and anode worker spaces to include variablenon masslike enhancing signal abnormality of the left anode worker musculatureand patchy marrow replacement within the ramus of the left mandible as well as enhancing osteonecrotic process in the body of the left mandible (as partof a permeative osseous process about the left basilar calvarial through maxillofacial bones architecture better evaluated on CT imaging) as wellas superior extension along the left temporalis musculature favored as an amalgamation of posttreatment changes with residual disease. SINUSES: As above. Otherwise, multicompartmental variable mucosal thickening about the paranasal sinuses with variable opacification aboutthe bilateral ethmoid air cells. NASAL CAVITY: Midline nasal septum. ORBITS: No acute abnormality. Ocular lenses and globes normal in conformation and position. TMJ: No acute abnormality. MASTOIDS: Redemonstration of bilateral mastoid effusions. BRAIN: Subtotal visualization of the intracranial contents.Redemonstration of enhancing T2 hyperintensity extending superiorly and through the left foramen ovale, without MR demonstration of invasion of the left Meckel'scave, 1.5 x 2 x 2 cm (CC by AP by TV) aggregation of sulcal tocortical-subcortical enhancing nodular foci, largest nodule approximately 1 cm longest singleaxis, of the medial aspect of the inferior temporal gyrus, with intervalappearance of adjoining perilesional vasogenic edema of the anterior mesial temporallobe and left temporal pole, consistent with perineural spread withintracranial invasion. No significant mass effect and no midline shift or herniation. OTHER: No other significant finding. IMPRESSION: 1. Patient motion artifact variably spanning multiple sequencescompromises evaluation. 2. Re-evaluation of amalgamation of left maxillofacial posttreatmentchanges and residual disease as well as left foraminal ovale perineural spreadwith intracranial (left middle cranial fossa/temporal lobe) extension asdetailed above. 3. Please reference CT soft tissue neck performed at the same time asthis study for further evaluation. THIS IS AN ELECTRONICALLY VERIFIED FINAL REPORT 02/08/2025 9:32 AM - Electronically signed by Donald Burden M.D. GABI: GABI Report ID: [id number] Reading Location: [place] [id number] [place] Dinesh Polo MD IM MRI PROCEDURES Final Re sult * CT Chest W Contrast (02/04/2025 2:24 PM CDT) Anatomical Region Laterality Modality Body N/A Computed Tomogra phy 02/09/2025 1:56 PM CDT Narrative 02/09/2025 2:01 PM CDT EXAM DESCRIPTION: CT CHEST W CONTRAST REASON FOR STUDY: SCC Neck SCC Neck, Squamous cell carcinoma of neck TECHNIQUE: CT scan of the chest performed with intravenous contrast using helical scanning technique with dynamic intravenous contrast injection. Reconstructed coronal and sagittal MPR images reviewed. All images stored on PACS. Automated exposure control was used as a dose optimization technique for this examination. CONTRAST TYPE/DOSE: 100mL of IOVERSOL 350 MG IODINE/ML INTRAVENOUS SYRINGE injected via intravenous COMPARISON: 11/28/2024 FINDINGS: LUNGS: There is a minimal biapical pleural thickening and scarring. There is no definite evidence of a pneumothorax. The central airways are grossly patent. There are scattered mild subsegmental atelectasis and scarring. There is no definite evidence of focal consolidation or pleural effusion. There is redemonstration of scattered linear, ground-glass, and reticular airspace opacities in the bilateral lungs, which is most significant in the bilateral upper lobes, and is overall grossly similar to multiple prior studies dating back to 10/04/2023, and therefore concerning for chronic interstitial changes, possibly due to sequela of prior airspace disease. There are multiple scattered pulmonary nodules noted, which are overall grossly unchanged in comparison to prior PET-CT dated 10/04/2023. For example, there is a stable subtle 0.4 cm pulmonary nodule in the lateral right upper lobe (axial image 41). There is a stable subpleural 0.5 cm pulmonary nodule in the posterolateral right lower lobe (axial image 79). There is stable subpleural 0.4 cm pulmonary nodule in the lateral right lower lobe (axial image 86). There is stable 0.3 cm pulmonary nodule in the central left upper lobe (axial image 37). There is a stable subpleural 0.3 cm pulmonary nodule in the lateral left upper lobe (axial image 63). There is stable subpleural 0.4 cm pulmonary nodule in the posterolateral left lower lobe (axial image 76). MEDIASTINUM/DEANNA: The heart size is stable. There is no definite evidence of pericardial effusion. There are mild atherosclerotic changes of the thoracic aorta and coronary vessels. There is no definite evidence of mediastinal, hilar, or axillary lymphadenopathy. There are scattered subcentimeter mediastinal lymph nodes noted with the largest measuring 0.7 cm in the subcarinal region (axial image 59). CHEST WALL: No masses. No subcutaneous air. HARDWARE/LINES/TUBES: None. UPPER ABDOMEN: There is a small hiatal hernia. There is a left Bochdalek's hernia. The bilateral adrenal glands are grossly stable and unremarkable. MUSCULOSKELETAL: There is mild osteopenia. There is a minimal to mild levoscoliotic curvature of the spine with degenerative changes. OTHER: No other significant abnormality. IMPRESSION: Redemonstration of scattered linear, ground-glass, and reticular airspace opacities in the bilateral lungs, which is most significant in the bilateral upper lobes, and is overall grossly similar to multiple prior studies dating back to 10/04/2023, and therefore concerning for chronic interstitial changes, possibly due to sequela of prior airspace disease. Continued attention on follow-up imaging is recommended as clinically indicated. Multiple scattered pulmonary nodules noted, which are overall grossly unchanged in comparison to prior PET-CT dated 10/04/2023. Continued attention on follow-up imaging is recommended as clinically indicated. Scattered mild subsegmental atelectasis and scarring. No definite evidence of focal consolidation. THIS IS AN ELECTRONICALLY VERIFIED FINAL REPORT 02/09/2025 2:01 PM - Electronically signed by Farzaneh Sidhu D.O. PS: PS Report ID: [id number] Reading Location: [id number] Procedure Note Farzaneh Sidhu, DO - 02/09/2025 EXAM DESCRIPTION: CT CHEST W CONTRAST REASON FOR STUDY: SCC Neck SCC Neck, Squamous cell carcinoma of neck TECHNIQUE: CT scan of the chest performed with intravenous contrast using helical scanning technique with dynamic intravenous contrast injection. Reconstructed coronal and sagittal MPR images reviewed. All images storedon PACS. Automated exposure control was used as a dose optimizationtechnique for this examination. CONTRAST TYPE/DOSE: 100mL of IOVERSOL 350 MG IODINE/ML INTRAVENOUS SYRINGE injected via intravenous COMPARISON: 11/28/2024 FINDINGS: LUNGS: There is a minimal biapical pleural thickening andscarring. There is no definite evidence of a pneumothorax. The central airways are grossly patent. There are scattered mild subsegmental atelectasis and scarring. There is no definite evidence of focal consolidation or pleural effusion. There is redemonstration of scattered linear, ground-glass, and reticular airspace opacities in the bilateral lungs, which is most significant inthe bilateral upper lobes, and is overall grossly similar to multiple prior studies dating back to 10/04/2023, and therefore concerning for chronic interstitial changes, possibly due to sequela of prior airspace disease. There are multiple scattered pulmonary nodules noted, which are overall grossly unchanged in comparison to prior PET-CT dated 10/04/2023. For example, there is a stable subtle 0.4 cm pulmonary nodule in the lateralright upper lobe (axial image 41). There is a stable subpleural 0.5 cmpulmonary nodule in the posterolateral right lower lobe (axial image 79). There is stable subpleural 0.4 cm pulmonary nodule in the lateral right lower lobe (axial image 86). There is stable 0.3 cm pulmonary nodule in the centralleft upper lobe (axial image 37). There is a stable subpleural 0.3 cmpulmonary nodule in the lateral left upper lobe (axial image 63). There is stable subpleural 0.4 cm pulmonary nodule in the posterolateral left lower lobe (axial image 76). MEDIASTINUM/DEANNA: The heart size is stable. There is no definiteevidence of pericardial effusion. There are mild atherosclerotic changes of the thoracic aorta and coronary vessels. There is no definite evidence of mediastinal, hilar, or axillary lymphadenopathy. There are scattered subcentimeter mediastinal lymphnodes noted with the largest measuring 0.7 cm in the subcarinal region (axialimage 59). CHEST WALL: No masses. No subcutaneous air. HARDWARE/LINES/TUBES: None. UPPER ABDOMEN: There is a small hiatal hernia. There is a leftBochdalek's hernia. The bilateral adrenal glands are grossly stable and unremarkable. MUSCULOSKELETAL: There is mild osteopenia. There is a minimal to mild levoscoliotic curvature of the spine with degenerative changes. OTHER: No other significant abnormality. IMPRESSION: Redemonstration of scattered linear, ground-glass, and reticular airspace opacities in the bilateral lungs, which is most significant in thebilateral upper lobes, and is overall grossly similar to multiple prior studiesdating back to 10/04/2023, and therefore concerning for chronic interstitialchanges, possibly due to sequela of prior airspace disease. Continued attention on follow-up imaging is recommended as clinically indicated. Multiple scattered pulmonary nodules noted, which are overall grossly unchanged in comparison to prior PET-CT dated 10/04/2023. Continuedattention on follow-up imaging is recommended as clinically indicated. Scattered mild subsegmental atelectasis and scarring. No definiteevidence of focal consolidation. THIS IS AN ELECTRONICALLY VERIFIED FINAL REPORT 02/09/2025 2:01 PM - Electronically signed by Farazneh Sidhu D.O. 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 SCC Neck, Squamous cell carcinoma of neck TECHNIQUE: Post IV contrast scanning from skull base through lung apices. Reconstructed MPR images reviewed. All images stored on PACS. Automated exposure control was used as a dose optimization technique for this examination. CONTRAST TYPE/DOSE: 100mL of IOVERSOL 350 MG IODINE/ML INTRAVENOUS SYRINGE injected via intravenous COMPARISON: Most recent available soft tissue neck CT 07/03/2024. Limited skull base-brain MRI from 08/29/2024. FINDINGS: SOFT TISSUE: No infiltration of skin or subcutaneous fat. ORAL CAVITY/FLOOR OF MOUTH, PHARYNX, LARYNX, HYPOPHARYNX: Stable slight asymmetric thickening of soft tissue in the left nasopharynx. Normal appearance of bilateral parapharyngeal fat. At the tiago pharynx, there is continued slight rounded infiltration of soft tissues along the left medial pterygoid musculature but no infiltrating mass is seen in this area. There is no infiltration of carotid space. These changes could be post treatment related given stability. There is a normal appearance of the palate, uvula, and retropharyngeal soft tissue. Normal appearance of epiglottis and aryepiglottic folds, piriform sinuses and laryngeal structures. LYMPHADENOPATHY: There is note made of a noticeable increase and development of enlarged and enhancing lymph nodes throughout the right level 2, level 3 neck with development right-sided jugulodigastric lymph nodes measuring up to 12 mm and a right level 3 lymph node measuring up to 11 mm. These were not present previously on the CT from 07/03/2024. Level 4 and medial supraclavicular lymph node chains bilaterally appear grossly stable. MAJOR SALIVARY GLANDS: Submandibular gland atrophy, left greater than right. Parotid glands are normal bilaterally. THYROID: Normal size. No nodules greater than 1 cm. VASCULATURE: No apparent critical stenosis or occlusion. INTRACRANIAL/SKULL BASE/INCLUDED ORBITS: Multiple prior studies demonstrate marked tumor infiltration throughout the left skull base, anode worker space, mandible and left tiago pharyngeal and supraglottic laryngeal spaces. On today's study, the majority of the left skull base now appears ossified with diffuse osteolytic changes no longer evident. There is no focal destructive lesion. Faint residual loss of fat in the left pterygopalatine fossa without significant expansion could indicate post treatment related scarring rather than tumor recurrence. This could be further evaluated based upon the MRI appearance although vascularized granulation tissue may show some enhancement as well. On today's study, no skull base mass is seen. Some residual fluid opacification of left mastoid air cells and mastoid antrum. No destructive process or coalescence. Parapharyngeal fat and nasopharynx appear grossly normal. No orbital infiltration.. PARANASAL SINUSES: Defect in the anterior nasal septum is stable. Stable appearance of left maxillary sinus and skull base with slight sclerosis which is likely post treatment related. Stable deformity of the left mandible however edges appear corticated and findings are probably treatment related. CERVICAL SPINE: No significant abnormalities. LUNG APICES: Interstitial reticulonodular densities bilaterally, slightly improved with some residual. Findings could indicate fibrosis. There is an irregular opacity in the lateral right upper lung field, grossly stable. Chest CT correlation is recommended. OTHER: No other significant finding. IMPRESSION: Interval development of enlarged and enhancing lymph nodes throughout the right level 2, level 3 and level 4 neck. Findings are nonspecific and no other findings indicating tumor recurrence are evident at this time on this exam allowing for somewhat limited comparison prior studies. Attention on follow-up or possible PET CT correlation at this time may be beneficial. Significantly improved appearance of the previously noted original left skull base mass with diffuse osteolytic changes. Faint residual loss of fat in the left pterygopalatine fossa could indicate post treatment related scarring rather than tumor recurrence. This could be further evaluated based upon the MRI appearance although vascularized granulation tissue may show some enhancement as well. Stable appearance of the left maxillary sinus and skull base with slight sclerosis which is likely post treatment related. Stable appearance of the left mandible with corticated edges. Stable appearance of the left nasopharynx and oropharynx. Stable appearance of the lung apices with interstitial reticulonodular densities and irregular opacity in the right upper lung field. Chest CT correlation is recommended. THIS IS AN ELECTRONICALLY VERIFIED FINAL REPORT 02/11/2025 9:07 AM - Electronically signed by Nick Dawson M.D. 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 SCC Neck, Squamous cell carcinoma of neck TECHNIQUE: Post IV contrast scanning from skull base through lung apices. Reconstructed MPR images reviewed. All images stored on PACS. Automated exposure control was used as a dose optimization technique for this examination. CONTRAST TYPE/DOSE: 100mL of IOVERSOL 350 MG IODINE/ML INTRAVENOUSSYRINGE injected via intravenous COMPARISON: Most recent available soft tissue neck CT 07/03/2024.Limited skull base-brain MRI from 08/29/2024. FINDINGS: SOFT TISSUE: No infiltration of skin or subcutaneous fat. ORAL CAVITY/FLOOR OF MOUTH, PHARYNX, LARYNX, HYPOPHARYNX: Stable slight asymmetric thickening of soft tissue in the left nasopharynx. Normal appearance of bilateral parapharyngeal fat. At the tiago pharynx, there is continued slight rounded infiltration of soft tissues along the leftmedial pterygoid musculature but no infiltrating mass is seen in this area.There is no infiltration of carotid space. These changes could be post treatment related given stability. There is a normal appearance of the palate,uvula, and retropharyngeal soft tissue. Normal appearance of epiglottis and aryepiglottic folds, piriform sinuses and laryngeal structures. LYMPHADENOPATHY: There is note made of a noticeable increase anddevelopment of enlarged and enhancing lymph nodes throughout the right level 2, level3 neck with development right-sided jugulodigastric lymph nodes measuring upto 12 mm and a right level 3 lymph node measuring up to 11 mm. These werenot present previously on the CT from 07/03/2024. Level 4 and medial supraclavicular lymph node chains bilaterally appear grossly stable. MAJOR SALIVARY GLANDS: Submandibular gland atrophy, left greater thanright. Parotid glands are normal bilaterally. THYROID: Normal size. No nodules greater than 1 cm. VASCULATURE: No apparent critical stenosis or occlusion. INTRACRANIAL/SKULL BASE/INCLUDED ORBITS: Multiple prior studiesdemonstrate marked tumor infiltration throughout the left skull base, masticatorspace, mandible and left tiago pharyngeal and supraglottic laryngeal spaces. On today's study, the majority of the left skull base now appears ossifiedwith diffuse osteolytic changes no longer evident. There is no focaldestructive lesion. Faint residual loss of fat in the left pterygopalatine fossawithout significant expansion could indicate post treatment related scarringrather than tumor recurrence. This could be further evaluated based upon the MRI appearance although vascularized granulation tissue may show someenhancement as well. On today's study, no skull base mass is seen. Some residualfluid opacification of left mastoid air cells and mastoid antrum. Nodestructive process or coalescence. Parapharyngeal fat and nasopharynx appear grossly normal. No orbital infiltration.. PARANASAL SINUSES: Defect in the anterior nasal septum is stable.Stable appearance of left maxillary sinus and skull base with slight sclerosiswhich is likely post treatment related. Stable deformity of the left mandible however edges appear corticated and findings are probably treatmentrelated. CERVICAL SPINE: No significant abnormalities. LUNG APICES: Interstitial reticulonodular densities bilaterally,slightly improved with some residual. Findings could indicate fibrosis. There isan irregular opacity in the lateral right upper lung field, grossly stable. Chest CT correlation is recommended. OTHER: No other significant finding. IMPRESSION: Interval development of enlarged and enhancing lymph nodes throughout the right level 2, level 3 and level 4 neck. Findings are nonspecific and noother findings indicating tumor recurrence are evident at this time on this exam allowing for somewhat limited comparison prior studies. Attention on follow-up or possible PET CT correlation at this time may be beneficial. Significantly improved appearance of the previously noted original leftskull base mass with diffuse osteolytic changes. Faint residual loss of fat inthe left pterygopalatine fossa could indicate post treatment related scarring rather than tumor recurrence. This could be further evaluated based uponthe MRI appearance although vascularized granulation tissue may show some enhancement as well. Stable appearance of the left maxillary sinus and skull base with slight sclerosis which is likely post treatment related. Stable appearance of the left mandible with corticated edges. Stable appearance of the left nasopharynx and oropharynx. Stable appearance of the lung apices with interstitial reticulonodular densities and irregular opacity in the right upper lung field. Chest CT correlation is recommended. THIS IS AN ELECTRONICALLY VERIFIED FINAL REPORT 02/11/2025 9:07 AM - Electronically signed by Nick Dawson M.D. LC: ABISAI Report ID: [id number] Reading Location: [place] [address] Dinesh Polo MD IM CT PROCEDURES Final Res ult * (ABNORMAL) Fentanyl Confirmation, Urine (12/17/2024 1:13 PM CDT) Fentanyl Conf, Ur Confirmed Positive(A) Cutoff 0.3ng/mL Comment:Testing performed by : [facility], [address] [place] [address], [place]., [address] Acetylfentanyl Conf, Ur Does Not Confirm Cutoff 1 ng/mL MO[facility] HWANG Comment:Testing performed by : [facility], [address] [place]., [address] Acrylfentanyl Conf, Ur Does Not Confirm Cutoff 1 ng/mL MOJGAN HWANG Comment:Testing performed by : [facility], [address] [place]., [address] Furanylfentanyl Conf, Ur Does Not Confirm Cutoff 1 ng/mL MOJ[facility] HWANG Comment:Testing performed by : [facility], [address] [place]., [address] Fentanyl Metabolite (Norfentanyl) Conf, Ur Confirmed Positive(A) CutOff 5 ng/mL MOJ[facility] HWANG Comment:Testing performed by : [facility], [address] [place]., [address] Xylazine MS Does Not Confirm Cutoff 1 ng/mL MOJGAN HWANG Comment: Interpretive Data This test detects the presence or absence of drug compounds using LC Tandem mass spectrometry and is not intended to assess compliance with prescribed medications. While this test is highly specific, false positive and false negative results may occur in very rare circumstances. Contact the laboratory for consultation, if needed. Performance characteristics were determined by the [facility] in a manner consistent with CLIA requirement and has not been cleared or approved by the U.S. Food and Drug Administration. Current interpretive data was last revised 2020. Testing performed by: [facility], [address] [place]., [address] Urine 12/17/2024 1:13 PM CDT 12/17/2024 6:06 PM CDT us Dinesh Polo MD LAB URINE ORDERABLES Final Result MOJGAN [address] [facility] [place] [address] * (ABNORMAL) Drugs of Abuse Screen, Urine with Reflex Confirmation (12/17/2024 1:13 PM CDT) [facility] Amphetamine, ur Not Detected CutOff 500ng/mL Comment: Interpretive Data - Amphetamines: Samples containing greater than 500 ng/mL d-methamphetamine or other cross-reacting amphetamine compounds are reported as positive. Amphetamine immunoassays are subject to significant false positive rates due to cross-reactivity of non-amphetamine drugs. Confirmatory testing required for definitive results. Current Interpretive Data was last reviewed 2023. Testing performed by: [facility], [address] [place] [address]., [address] Barbiturates, ur Not Detected CutOff 200ng/mL CERNER Comment: Interpretive Data - Barbiturates: Samples containing greater than 200 ng/mL secobarbital or other cross-reacting barbiturate compounds are reported as positive. False positive and false negative results are possible. Confirmatory testing required for definitive results. Current Interpretive Data was last reviewed 2023. Testing performed by: [address] [address] Benzodiazepines, ur Not Detected CutOff 100ng/mL [facility] Comment: Interpretive Data - Benzodiazepines: Samples containing greater than 100 ng/mL nordiazepam or other cross-reacting compounds are reported as positive. False positive and false negative results are possible. Confirmatory testing required for definitive results. Current Interpretive Data was last reviewed 2023. Testing performed by: [address] [address] Cannabinoids, ur Screen Positive, presumptive (A) CutOff 50 ng/mL [facility] Comment: Interpretive Data - Cannabinoids: Samples containing greater than 50 ng/mL delta-9 THC -COOH or other cross- reacting compounds are reported as positive. False positive and false negative results are possible. Confirmatory testing required for definitive results. Current Interpretive Data was last reviewed 2023. Testing performed by: [address] [address] Cocaine, ur Not Detected CutOff 150ng/mL [facility] Comment: Interpretive Data - Cocaine: Samples containing greater than 150 ng/mL benzoylecgonine or other cross- reacting compounds are reported as positive. False positive and false negative results are possible. Confirmatory testing required for definitive results. Current Interpretive Data was last reviewed 2023. Testing performed by: [address] [address] Fentanyl, Ur Screen Positive, presumptive (A) CutOff 5 ng/mL CERNER Comment: Interpretive Data - Fentanyl: Samples containing greater than 1 ng/mL fentanyl or other cross-reacting fentanyl compounds are reported as positive. False positive and false negative results are possible. Confirmatory testing required for definitive results. Current Interpretive Data was last reviewed 2023. Testing performed by: [facility], [address] [place] [address]., [address] Methadone, ur Screen Positive, presumptive (A) CutOff 300ng/mL [facility] Comment: Interpretive Data - Methadone: Samples containing greater than 300 ng/mL d,l-methadone or other cross-reacting compounds are reported as positive. False positive and false negative results are possible. Confirmatory testing required for definitive results. Current Interpretive Data was last reviewed 2023. Testing performed by: [address] [address] Opiates, ur Screen Positive, presumptive (A) CutOff 300ng/mL [facility] Comment: Interpretive Data - Opiates: Samples containing greater than 300 ng/mL morphine or other cross-reacting compounds are reported as positive. False positive and false negative results are possible. Confirmatory testing required for definitive results. Current Interpretive Data was last reviewed 2023. Testing performed by: [address] [address] Oxycodone, ur Not Detected CutOff 100ng/mL [facility] Comment: Interpretive Data - Oxycodone: Samples containing greater than 100 ng/mL oxycodone or other cross-reacting compounds are reported as positive. False positive and false negative results are possible. Confirmatory testing required for definitive results. Current Interpretive Data was last reviewed 2023. Testing performed by: [address] [address] Phencyclidine, ur Not Detected CutOff 25 ng/mL [facility] Comment: Interpretive Data - Phencyclidine: Samples containing greater than 25 ng/mL phencyclidine or other cross-reacting compounds are reported as positive. False positive and false negative results are possible. Confirmatory testing required for definitive results. Current Interpretive Data was last reviewed 2023. Testing performed by: [address] [address] Urine Creatinine 52 mg/dL MOJGAN Comment: Interpretive Data Urine Creatinine: < 10 mg/dL is extremely dilute = or > 10 but < 20 mg/dL is dilute = or > 20 mg/dL is normal Current Interpretive Data was last revised on 2017. Testing performed by: [address] [address] Urine 12/17/2024 1:13 PM CDT 12/17/2024 1:44 PM CDT Karl [facility] 12/17/2024 2:24 PM CDT Drug of Abuse screening is performed by immunoassay for medical purposes only. This is not to be used for Pain Management purposes. If Detected, confirmation testing will be performed for Amphetamines, Cocaine, Fentanyl, Methadone, Opiates, Oxycodone or Phencyclidine. Dinesh Polo MD LAB URINE ORDERABLES Final Result [facility] [address] [facility] [place] [address] * eGFR (12/17/2024 1:13 PM CDT) eGFR 74 >=60 mL/min/1. 73 m2 Comment: Interpretive Data Reference Interval Normal >/= 90 mL/min/1.73m2 Mildly decreased* 60 - 89 mL/min/1.73m2 Mildly to moderately decreased 45 - 59 mL/min/1.73m2 Moderately to severely decreased 30 - 44 mL/min/1.73m2 Severely decreased 15 - 29 mL/min/1.73m2 Kidney Failure < 15 mL/min/1.73m2 *Relative to young adult level Estimated glomerular filtration rate is determined by the 2020 CKD-EPI equation recommended by the National Kid[employer] (A Unifying Approach to GFR Estimation: Recommendations of the NKF-ASK Task Force on Reassessing the Inclusion of Race in Diagnosing Kidney Disease, JASN 202). The CKD-EPI equation should not be used for patients with unstable renal function and has not been validated in children and those over 70. Current interpretive data was last reviewed 2021. Testing performed by: [address] [address] Blood 12/17/2024 1:13 PM CDT 12/17/2024 1:15 PM CDT Olivier Santos NP LAB BLOOD ORDERABLES F inal Result [facility] [address] [facility] [place] [address] * (ABNORMAL) Differential, auto (12/17/2024 1:13 PM CDT) Neutrophil abs 9.7(H) 1.5 - 6.5 K/cumm Comment:Testing performed by : [address] [address] Imm gran abs 0.1 0.0 - 0.1 K/cumm MOJGAN Comment:Testing performed by : [address] [address] Lymphocyte abs 0.4(L) 0.8 - 3.3 K/cumm MOJGAN Comment:Testing performed by : [address] [address] Monocyte abs 0.5 0.2 - 0.8 K/cumm MOJGAN Comment:Testing performed by : [address] [address] Eosinophil abs 0.0 0.0 - 0.5 K/cumm MOJGAN Comment:Testing performed by : [address] [address] Basophil abs 0.0 0.0 - 0.1 K/cumm MOJGAN Comment:Testing performed by : [address] [address] Neutrophil pct 89.6 % MOJGAN Comment: Interpretive Data Percent cell count reference ranges are not reported, since discordance with absolute values may lead to misinterpretation of CBC data. Current Interpretive Data was last revised on 2018. Testing performed by: [address] [address] Imm gran pct 1.1 % MOJ[facility] Comment: Interpretive Data Percent cell count reference ranges are not reported, since discordance with absolute values may lead to misinterpretation of CBC data. Current Interpretive Data was last revised on 2018. Testing performed by: [address] [address] Lymphocyte pct 4.1 % [facility] Comment: Interpretive Data Percent cell count reference ranges are not reported, since discordance with absolute values may lead to misinterpretation of CBC data. Current Interpretive Data was last revised on 2018. Testing performed by: [address] [address] Monocyte pct 5.0 % [facility] Comment: Interpretive Data Percent cell count reference ranges are not reported, since discordance with absolute values may lead to misinterpretation of CBC data. Current Interpretive Data was last revised on 2018. Testing performed by: [address] [address] Eosinophil pct 0.1 % [facility] Comment: Interpretive Data Percent cell count reference ranges are not reported, since discordance with absolute values may lead to misinterpretation of CBC data. Current Interpretive Data was last revised on 2018. Testing performed by: [address] [address] Basophil pct 0.1 % [facility] Comment: Interpretive Data Percent cell count reference ranges are not reported, since discordance with absolute values may lead to misinterpretation of CBC data. Current Interpretive Data was last revised on 2018. Testing performed by: [address] [address] Blood 12/17/2024 1:13 PM CDT 12/17/2024 1:15 PM CDT us Oilvier Santos NP LAB BLOOD ORDERABLES F inal Result [facility]JGAN HWANG [address] [facility] [place] [address] * (ABNORMAL) Opiates Confirmation, Urine (12/17/2024 1:13 PM CDT) Olga Collins, Ur Does Not Confirm CutOff 50 ng/mL Comment:Testing performed by : [facility], [address] [place]., [address]- Acetylmorphine Conf, Ur Does Not Confirm CutOff 10 ng/mL [facility] HWANG Comment:Testing performed by : [facility], [address] [place]., [address] Hydrocodone Conf, Ur Does Not Confirm CutOff 50 ng/mL [facility] HWANG Comment:Testing performed by : [facility], [address] [place]., [address] Morphine Conf, Ur Confirmed Positive(A) CutOff 50 ng/mL MOJ[facility] HWANG Comment:Testing performed by : [facility], [address] [place]., [address] Hydromorphone Conf, Ur Does Not Confirm CutOff 50 ng/mL [facility] HWANG Comment: Interpretive Data This test detects the presence or absence of drug compounds using LC Tandem mass spectrometry and is not intended to assess compliance with prescribed medications. While this test is highly specific, false positive and false negative results may occur in very rare circumstances. Contact the laboratory for consultation, if needed. Performance characteristics were determined by the [facility] in a manner consistent with CLIA requirement and has not been cleared or approved by the U.S. Food and Drug Administration. Current interpretive data was last revised 2020. Testing performed by: [facility], [address] [place] [address]., [address] Urine 12/17/2024 1:13 PM CDT 12/17/2024 6:06 PM CDT us Dinesh Polo MD LAB URINE ORDERABLES Final Result [facility] HWANG [address] [facility] [place] [address] * (ABNORMAL) Methadone Confirmation, Urine (12/17/2024 1:13 PM CDT) [facility] Methadone Conf, Ur Confirmed Positive Comment:Testing performed by : [facility], [address] [place] [address] Methadone Metabolite (EDDP) Conf, Ur Confirmed Positive(A) CutOff 75 ng/mL [facility] HWANG Comment: Interpretive Data This test detects the presence or absence of drug compounds using LC Tandem mass spectrometry and is not intended to assess compliance with prescribed medications. While this test is highly specific, false positive and false negative results may occur in very rare circumstances. Contact the laboratory for consultation, if needed. Performance characteristics were determined by the [facility] in a manner consistent with CLIA requirement and has not been cleared or approved by the U.S. Food and Drug Administration. Current interpretive data was last revised 2020. Testing performed by: [facility], [address] [place]., [address] Urine 12/17/2024 1:13 PM CDT 12/17/2024 6:06 PM CDT Dinesh Polo MD LAB URINE ORDERABLES Final Result [facility] HWANG [address] [facility] [place] [address] * (ABNORMAL) CBC with auto differential (12/17/2024 1:13 PM CDT) WBC 10.8(H) 3.8 - 9.9 K/cumm Comment:Testing performed by : [address] [address] Hgb 12.2(L) 13.0 - 17.5 g/dL [facility] HWANG Comment:Testing performed by : [address] [address] Hct 34.7(L) 38.9 - 50.3 % [facility]JGAN HWANG Comment:Testing performed by : [address] [address] Plt 143(L) 150 - 400 K/cumm MOJGAN HWANG Comment:Testing performed by : [address] [address] MPV 7.8(L) 9.1 - 12.3 fL MOJGAN HWANG Comment:Testing performed by : [address] [address] RBC 3.86(L) 4.30 - 5.80 M/cumm MOJGAN HWANG Comment:Testing performed by : [address] [address] MCV 89.9 81.3 - 96.4 fL MOJGAN Comment:Testing performed by : [address] [address] MCH 31.6 27.1 - 33.3 pg MOJGAN Comment:Testing performed by : [address] [address] MCHC 35.2 32.3 - 35.7 g/dL MOJGAN Comment:Testing performed by : [address] [address] RDW CV 13.0 11.1 - 14.9 % MOJGAN Comment:Testing performed by : [address], [address] RDW SD 42.8 35.7 - 48.1 fL MOJGAN Comment:Testing performed by : [address] [address] NRBC abs 0.00 0.00 - 0.01 K/cumm MOJGAN Comment:Testing performed by : [address] [address] Blood 12/17/2024 1:13 PM CDT 12/17/2024 1:15 PM CDT us Olivier Santos NP LAB BLOOD ORDERABLES F inal Result MOJGAN [address] [facility] [place] [address] * (ABNORMAL) Comprehensive metabolic panel (12/17/2024 1:13 PM CDT) [facility] Sodium 128(L) 135 - 145 mmol/L Comment:Testing performed by : [address] [address] Potassium, pl 4.4 3.3 - 4.9 mmol/L MOJGAN Comment:Testing performed by : [address] [address] Chloride 93(L) 97 - 110 mmol/L MOJGAN Comment:Testing performed by : [address] [address] CO2 25 22 - 32 mmol/L MOJGAN Comment:Testing performed by : [address] [address] Anion gap 10 2 - 15 mmol/L [facility] Comment:Testing performed by : [address] [address] BUN 31(H) 6 - 25 mg/dL [facility] Comment:Testing performed by : [address] [address] Creatinine 1.20 0.80 - 1.30 mg/dL [facility] Comment:Testing performed by : [address] [address] Glucose 112 70 - 199 mg/dL [facility] Comment: Interpretive Data Fasting glucose >/= 126 mg/dl is diagnostic for diabetes. Fasting is defined as no caloric intake for at least 8 hours. Fasting glucose between 100 mg/dl to 125 mg/dl is diagnostic of prediabetes. In a patient with classic symptoms of hyperglycemia or hyperglycemic crisis, a random glucose >/= 200 mg/dl is diagnostic for diabetes. In the absence of unequivocal hyperglycemia, results should be confirmed by repeat testing. The classification and Diagnosis of Diabetes Diabetes Care 202; 46: S19-S40. Current interpretive data was last revised 2022. Testing performed by: [address] [address] Calcium 8.9 8.5 - 10.3 mg/dL [facility] Comment:Testing performed by : [address] [address] Bilirubin, total 0.2 0.1 - 1.2 mg/dL [facility] Comment:Testing performed by : [address] [address] Protein, pl 6.4(L) 6.5 - 8.5 g/dL [facility] Comment:Testing performed by : [address] [address] Albumin 4.2 3.5 - 5.0 g/dL [facility] Comment:Testing performed by : [address] [address] Alk phos 63 40 - 130 Units/L [facility] Comment:Testing performed by : [address] [address] ALT 20 7 - 55 Units/L [facility] Comment:Testing performed by : [address] [address] AST 12 10 - 50 Units/L [facility] Comment:Testing performed by : [address] [address] Blood 12/17/2024 1:13 PM CDT 12/17/2024 1:15 PM CDT Olivier Santos NP LAB BLOOD ORDERABLES F inal Result [facility] [address] [facility] Department [place] [address] * eGFR (12/09/2024 4:30 AM [employer] LEADER) eGFR 74 >=60 mL/min/1. 73 m2 Comment: Interpretive Data Reference Interval Normal >/= 90 mL/min/1.73m2 Mildly decreased* 60 - 89 mL/min/1.73m2 Mildly to moderately decreased 45 - 59 mL/min/1.73m2 Moderately to severely decreased 30 - 44 mL/min/1.73m2 Severely decreased 15 - 29 mL/min/1.73m2 Kidney Failure < 15 mL/min/1.73m2 *Relative to young adult level Estimated glomerular filtration rate is determined by the 2020 CKD-EPI equation recommended by the National Kidney Foundation (A Unifying Approach to GFR Estimation: Recommendations of the NKF-ASK Task Force on Reassessing the Inclusion of Race in Diagnosing Kidney Disease, JASN 2020). The CKD-EPI equation should not be used for patients with unstable renal function and has not been validated in children and those over 70. Current interpretive data was last reviewed 2021. Blood 12/09/2024 4:30 AM [employer] LEADER 12/09/2024 1:01 AM [employer] LEADER Terri Chavez MD PhD LAB BLOOD ORDERABLES Final Result [facility] Department [place] [address] * (ABNORMAL) Differential, auto (12/09/2024 4:30 AM [employer] LEADER) Neutrophil abs 7.8(H) 1.5 - 6.5 K/cumm Imm gran abs 0.1 0.0 - 0.1 K/cumm [facility] Lymphocyte abs 0.6(L) 0.8 - 3.3 K/cumm [facility] Monocyte abs 0.9(H) 0.2 - 0.8 K/cumm [facility] Eosinophil abs 0.0 0.0 - 0.5 K/cumm [facility] Basophil abs 0.0 0.0 - 0.1 K/cumm [facility] Neutrophil pct 82.8 % [facility] Comment: Interpretive Data Percent cell count reference ranges are not reported, since discordance with absolute values may lead to misinterpretation of CBC data. Current Interpretive Data was last revised on 2018. Imm gran pct 1.1 % [facility] Comment: Interpretive Data Percent cell count reference ranges are not reported, since discordance with absolute values may lead to misinterpretation of CBC data. Current Interpretive Data was last revised on 2018. Lymphocyte pct 6.3 % [facility] Comment: Interpretive Data Percent cell count reference ranges are not reported, since discordance with absolute values may lead to misinterpretation of CBC data. Current Interpretive Data was last revised on 2018. Monocyte pct 9.5 % [facility] Comment: Interpretive Data Percent cell count reference ranges are not reported, since discordance with absolute values may lead to misinterpretation of CBC data. Current Interpretive Data was last revised on 2018. Eosinophil pct 0.1 % [facility] Comment: Interpretive Data Percent cell count reference ranges are not reported, since discordance with absolute values may lead to misinterpretation of CBC data. Current Interpretive Data was last revised on 2018. Basophil pct 0.2 % [facility] Comment: Interpretive Data Percent cell count reference ranges are not reported, since discordance with absolute values may lead to misinterpretation of CBC data. Current Interpretive Data was last revised on 2018. Blood 12/09/2024 4:30 AM [employer] LEADER 12/09/2024 1:01 AM [employer] LEADER us Terri Chavez MD PhD LAB BLOOD ORDERABLES Final Result [facility] Department [place] [address] * (ABNORMAL) CBC with auto differential (12/09/2024 4:30 AM [employer] LEADER) WBC 9.4 3.8 - 9.9 K/cumm Hgb 11.0(L) 13.0 - 17.5 g/dL [facility] Hct 32.8(L) 38.9 - 50.3 % [facility] Plt 138(L) 150 - 400 K/cumm [facility] MPV 8.3(L) 9.1 - 12.3 fL [facility] RBC 3.49(L) 4.30 - 5.80 M/cumm [facility] MCV 94.0 81.3 - 96.4 fL [facility] MCH 31.5 27.1 - 33.3 pg [facility] MCHC 33.5 32.3 - 35.7 g/dL [facility] RDW CV 13.2 11.1 - 14.9 % [facility] RDW SD 44.7 35.7 - 48.1 fL [facility] NRBC abs 0.00 0.00 - 0.01 K/cumm [facility] Blood 12/09/2024 4:30 AM [employer] LEADER 12/09/2024 1:01 AM [employer] LEADER us Terri Chavez MD PhD LAB BLOOD ORDERABLES Final Result [facility] Department [place] [address] * Phosphorus (12/09/2024 4:30 AM [employer] LEADER) [facility] Phosphorus, pl 3.3 2.3 - 4.5 mg/dL Blood 12/09/2024 4:30 AM [employer] LEADER 12/09/2024 1:01 AM [employer] LEADER Terri Chavez MD PhD LAB BLOOD ORDERABLES Final Result Performing Organization Address City/[facility]/ZIP Co de Phone Number [facility] Department [place] [address] * Magnesium (12/09/2024 4:30 AM [employer] LEADER) [facility] Magnesium 2.1 1.4 - 2.5 mg/dL Blood 12/09/2024 4:30 AM [employer] LEADER 12/09/2024 1:01 AM [employer] LEADER Terri Chavez MD PhD LAB BLOOD ORDERABLES Final Result Performing Organization Address City/[facility] Co de Phone Number [facility] Department [place] [address] * (ABNORMAL) Comprehensive metabolic panel (12/09/2024 4:30 AM [employer] LEADER) [facility] Sodium 139 135 - 145 mmol/L Potassium, pl 4.5 3.3 - 4.9 mmol/L [facility] Chloride 98 97 - 110 mmol/L [facility] CO2 31 22 - 32 mmol/L [facility] Anion gap 10 2 - 15 mmol/L [facility] BUN 27(H) 6 - 25 mg/dL [facility] Creatinine 1.19 0.80 - 1.30 mg/dL [facility] Glucose 102 70 - 199 mg/dL [facility] Comment: Interpretive Data Fasting glucose >/= 126 mg/dl is diagnostic for diabetes. Fasting is defined as no caloric intake for at least 8 hours. Fasting glucose between 100 mg/dl to 125 mg/dl is diagnostic of prediabetes. In a patient with classic symptoms of hyperglycemia or hyperglycemic crisis, a random glucose >/= 200 mg/dl is diagnostic for diabetes. In the absence of unequivocal hyperglycemia, results should be confirmed by repeat testing. The classification and Diagnosis of Diabetes Diabetes Care 2021; 46: S19-S40. Current interpretive data was last revised 2022. Calcium 9.0 8.5 - 10.3 mg/dL [facility] Bilirubin, total <0.2 0.1 - 1.2 mg/dL [facility] Protein, pl 6.1(L) 6.5 - 8.5 g/dL [facility] Albumin 3.8 3.5 - 5.0 g/dL [facility] Alk phos 59 40 - 130 Units/L [facility] ALT 8 7 - 55 Units/L [facility] AST 14 10 - 50 Units/L [facility] Blood 12/09/2024 4:30 AM [employer] LEADER 12/09/2024 1:01 AM [employer] LEADER us Terri Chavez MD PhD LAB BLOOD ORDERABLES Final Result Performing Organization Address City/[facility]/ZIP Co de Phone Number [facility] Department [place] [employer] [place] [address] * Potassium, whole blood (12/08/2024 6:06 AM P[employer] LEADER) Pathologist [facility] Potassium, bld 4.4 3.3 - 4.9 mmol/L Blood 12/08/2024 6:06 AM [employer] LEADER 12/08/2024 6:12 AM [employer] LEADER Gordon Mesa MD LAB BLOOD ORDERABLES Final Resul t Performing Organization Address [facility]/ZIP Co de Phone Number [facility] Department [place] [address] * eGFR (12/08/2024 2:08 AM P[employer] LEADER) Pathologist [facility] eGFR 72 >=60 mL/min/1. 73 m2 Comment: Interpretive Data Reference Interval Normal >/= 90 mL/min/1.73m2 Mildly decreased* 60 - 89 mL/min/1.73m2 Mildly to moderately decreased 45 - 59 mL/min/1.73m2 Moderately to severely decreased 30 - 44 mL/min/1.73m2 Severely decreased 15 - 29 mL/min/1.73m2 Kidney Failure < 15 mL/min/1.73m2 *Relative to young adult level Estimated glomerular filtration rate is determined by the 2020 CKD-EPI equation recommended by the National Kidney Foundation (A Unifying Approach to GFR Estimation: Recommendations of the NKF-ASK Task Force on Reassessing the Inclusion of Race in Diagnosing Kidney Disease, JASN 2020). The CKD-EPI equation should not be used for patients with unstable renal function and has not been validated in children and those over 70. Current interpretive data was last reviewed 2021. Blood 12/08/2024 2:08 AM [employer] LEADER 12/08/2024 2:22 AM [employer] LEADER us Terri Chavez MD PhD LAB BLOOD ORDERABLES Final Result [facility] Department [place] [address] * (ABNORMAL) Differential, auto (12/08/2024 2:08 AM P[employer] LEADER) Pathologist [facility] Neutrophil abs 8.2(H) 1.5 - 6.5 K/cumm Imm gran abs 0.1 0.0 - 0.1 K/cumm [facility] Lymphocyte abs 0.4(L) 0.8 - 3.3 K/cumm [facility] Monocyte abs 0.7 0.2 - 0.8 K/cumm [facility] Eosinophil abs 0.0 0.0 - 0.5 K/cumm [facility] Basophil abs 0.0 0.0 - 0.1 K/cumm [facility] Neutrophil pct 87.5 % [facility] Comment: Interpretive Data Percent cell count reference ranges are not reported, since discordance with absolute values may lead to misinterpretation of CBC data. Current Interpretive Data was last revised on 2018. Imm gran pct 1.2 % [facility] Comment: Interpretive Data Percent cell count reference ranges are not reported, since discordance with absolute values may lead to misinterpretation of CBC data. Current Interpretive Data was last revised on 2018. Lymphocyte pct 3.9 % [facility] Comment: Interpretive Data Percent cell count reference ranges are not reported, since discordance with absolute values may lead to misinterpretation of CBC data. Current Interpretive Data was last revised on 2018. Monocyte pct 7.3 % [facility] Comment: Interpretive Data Percent cell count reference ranges are not reported, since discordance with absolute values may lead to misinterpretation of CBC data. Current Interpretive Data was last revised on 2018. Eosinophil pct 0.0 % [facility] Comment: Interpretive Data Percent cell count reference ranges are not reported, since discordance with absolute values may lead to misinterpretation of CBC data. Current Interpretive Data was last revised on 2018. Basophil pct 0.1 % [facility] Comment: Interpretive Data Percent cell count reference ranges are not reported, since discordance with absolute values may lead to misinterpretation of CBC data. Current Interpretive Data was last revised on 2018. Blood 12/08/2024 2:08 AM [employer] LEADER 12/08/2024 2:22 AM [employer] LEADER us Terri Chavez MD PhD LAB BLOOD ORDERABLES Final Result [facility] Department [place] [address] * (ABNORMAL) CBC with auto differential (12/08/2024 2:08 AM [employer] LEADER) WBC 9.3 3.8 - 9.9 K/cumm Hgb 10.8(L) 13.0 - 17.5 g/dL [facility] Hct 33.2(L) 38.9 - 50.3 % [facility] Plt 146(L) 150 - 400 K/cumm [facility] MPV 8.2(L) 9.1 - 12.3 fL [facility] RBC 3.50(L) 4.30 - 5.80 M/cumm [facility] MCV 94.9 81.3 - 96.4 fL [facility] MCH 30.9 27.1 - 33.3 pg [facility] MCHC 32.5 32.3 - 35.7 g/dL [facility] RDW CV 13.2 11.1 - 14.9 % [facility] RDW SD 45.1 35.7 - 48.1 fL [facility] NRBC abs 0.00 0.00 - 0.01 K/cumm [facility] Blood 12/08/2024 2:08 AM [employer] LEADER 12/08/2024 2:22 AM [employer] LEADER Result [facility] Terri Chavez MD PhD LAB BLOOD ORDERABLES Final Result Performing Organization Address City/[facility] de Phone Number [facility] Department [place] [address] * Phosphorus (12/08/2024 2:08 AM [employer] LEADER) Phosphorus, pl 4.3 2.3 - 4.5 mg/dL Blood 12/08/2024 2:08 AM [employer] LEADER 12/08/2024 2:22 AM [employer] LEADER Result [facility] Terri Chavez MD PhD LAB BLOOD ORDERABLES Final Result Performing Organization Address City/[facility] de Phone Number [facility] [place] [employer] [place] [address] * Magnesium (12/08/2024 2:08 AM P[employer] LEADER) Magnesium 2.0 1.4 - 2.5 mg/dL Blood 12/08/2024 2:08 AM [employer] LEADER 12/08/2024 2:22 AM [employer] LEADER Result [facility] Terri Chavez MD PhD LAB BLOOD ORDERABLES Final Result Performing Organization Address City/[facility] de Phone Number [facility] [place] Department [place] [address] * (ABNORMAL) Comprehensive metabolic panel (12/08/2024 2:08 AM [employer] LEADER) Sodium 139 135 - 145 mmol/L Potassium, pl 5.1(H) 3.3 - 4.9 mmol/L [facility] Comment:Hemolyzed; Potassium value may be falsely elevated by as much as 0.3-0.5 mmol/L. Suggest redraw and reanalysis. Chloride 101 97 - 110 mmol/L [facility] CO2 31 22 - 32 mmol/L [facility] Anion gap 7 2 - 15 mmol/L [facility] BUN 25 6 - 25 mg/dL [facility] Creatinine 1.22 0.80 - 1.30 mg/dL [facility] Glucose 107 70 - 199 mg/dL [facility] Comment: Interpretive Data Fasting glucose >/= 126 mg/dl is diagnostic for diabetes. Fasting is defined as no caloric intake for at least 8 hours. Fasting glucose between 100 mg/dl to 125 mg/dl is diagnostic of prediabetes. In a patient with classic symptoms of hyperglycemia or hyperglycemic crisis, a random glucose >/= 200 mg/dl is diagnostic for diabetes. In the absence of unequivocal hyperglycemia, results should be confirmed by repeat testing. The classification and Diagnosis of Diabetes Diabetes Care 2021; 46: S19-S40. Current interpretive data was last revised 2022. Calcium 9.0 8.5 - 10.3 mg/dL [facility] Bilirubin, total <0.2 0.1 - 1.2 mg/dL [facility] Protein, pl 6.3(L) 6.5 - 8.5 g/dL [facility] Albumin 3.8 3.5 - 5.0 g/dL [facility] Alk phos 62 40 - 130 Units/L [facility] ALT 13 7 - 55 Units/L [facility] AST 24 10 - 50 Units/L [facility] Comment:Hemolyzed; result ma y be falsely elevated Blood 12/08/2024 2:08 AM [employer] LEADER 12/08/2024 2:22 AM [employer] LEADER us Terri Chavez MD PhD LAB BLOOD ORDERABLES Final Result [facility] [place] [address] * eGFR (12/07/2024 12:56 AM [employer] LEADER) eGFR 78 >=60 mL/min/1. 73 m2 Comment: Interpretive Data Reference Interval Normal >/= 90 mL/min/1.73m2 Mildly decreased* 60 - 89 mL/min/1.73m2 Mildly to moderately decreased 45 - 59 mL/min/1.73m2 Moderately to severely decreased 30 - 44 mL/min/1.73m2 Severely decreased 15 - 29 mL/min/1.73m2 Kidney Failure < 15 mL/min/1.73m2 *Relative to young adult level Estimated glomerular filtration rate is determined by the 2020 CKD-EPI equation recommended by the National Kidney Foundation (A Unifying Approach to GFR Estimation: Recommendations of the NKF-ASK Task Force on Reassessing the Inclusion of Race in Diagnosing Kidney Disease, JASN 2020). The CKD-EPI equation should not be used for patients with unstable renal function and has not been validated in children and those over 70. Current interpretive data was last reviewed 2021. Blood 12/07/2024 12:5 6 AM [employer] LEADER 12/07/2024 1:08 AM [employer] LEADER Terri Chavez MD PhD LAB BLOOD ORDERABLES Final Result Performing Organization Address City/[facility]/ZIP Co de Phone Number [facility] [place] [address] * (ABNORMAL) Differential, auto (12/07/2024 12:56 AM [employer] LEADER) Neutrophil abs 5.1 1.5 - 6.5 K/cumm Imm gran abs 0.1 0.0 - 0.1 K/cumm [facility] Lymphocyte abs 0.2(L) 0.8 - 3.3 K/cumm [facility] Monocyte abs 0.4 0.2 - 0.8 K/cumm [facility] Eosinophil abs 0.0 0.0 - 0.5 K/cumm [facility] Basophil abs 0.0 0.0 - 0.1 K/cumm [facility] Neutrophil pct 88.8 % [facility] Comment: Interpretive Data Percent cell count reference ranges are not reported, since discordance with absolute values may lead to misinterpretation of CBC data. Current Interpretive Data was last revised on 2018. Imm gran pct 1.2 % [facility] Comment: Interpretive Data Percent cell count reference ranges are not reported, since discordance with absolute values may lead to misinterpretation of CBC data. Current Interpretive Data was last revised on 2018. Lymphocyte pct 3.5 % [facility] Comment: Interpretive Data Percent cell count reference ranges are not reported, since discordance with absolute values may lead to misinterpretation of CBC data. Current Interpretive Data was last revised on 2018. Monocyte pct 6.3 % [facility] Comment: Interpretive Data Percent cell count reference ranges are not reported, since discordance with absolute values may lead to misinterpretation of CBC data. Current Interpretive Data was last revised on 2018. Eosinophil pct 0.0 % [facility] Comment: Interpretive Data Percent cell count reference ranges are not reported, since discordance with absolute values may lead to misinterpretation of CBC data. Current Interpretive Data was last revised on 2018. Basophil pct 0.2 % [facility] Comment: Interpretive Data Percent cell count reference ranges are not reported, since discordance with absolute values may lead to misinterpretation of CBC data. Current Interpretive Data was last revised on 2018. Blood 12/07/2024 12:5 6 AM [employer] LEADER 12/07/2024 1:08 AM [employer] LEADER us Terri Chavez MD PhD LAB BLOOD ORDERABLES Final Result [facility] Department [place] [address] * (ABNORMAL) CBC with auto differential (12/07/2024 12:56 AM [employer] LEADER) WBC 5.7 3.8 - 9.9 K/cumm Hgb 10.8(L) 13.0 - 17.5 g/dL [facility] Hct 32.3(L) 38.9 - 50.3 % [facility] Plt 120(L) 150 - 400 K/cumm [facility] MPV 8.3(L) 9.1 - 12.3 fL [facility] RBC 3.43(L) 4.30 - 5.80 M/cumm [facility] MCV 94.2 81.3 - 96.4 fL [facility] MCH 31.5 27.1 - 33.3 pg [facility] MCHC 33.4 32.3 - 35.7 g/dL [facility] RDW CV 12.8 11.1 - 14.9 % [facility] RDW SD 43.5 35.7 - 48.1 fL [facility] NRBC abs 0.00 0.00 - 0.01 K/cumm [facility] Blood 12/07/2024 12:5 6 AM [employer] LEADER 12/07/2024 1:08 AM [employer] LEADER us Terri Chavez MD PhD LAB BLOOD ORDERABLES Final Result [facility] Department [place] [employer] [place] [address] * (ABNORMAL) Phosphorus (12/07/2024 12:56 AM [employer] LEADER) [facility] Phosphorus, pl 1.9(L) 2.3 - 4.5 mg/dL Blood 12/07/2024 12:5 6 AM [employer] LEADER 12/07/2024 1:08 AM [employer] LEADER us Terri Chavez MD PhD LAB BLOOD ORDERABLES Final Result [facility] [place] [address] * Magnesium (12/07/2024 12:56 AM P[employer] AND [employer] LEADER) [facility] Magnesium 1.7 1.4 - 2.5 mg/dL Blood 12/07/2024 12:5 6 AM [employer] LEADER 12/07/2024 1:08 AM P[employer] LEADER us Terri Chavez MD PhD LAB BLOOD ORDERABLES Final Result [facility] Department [place] [address] * (ABNORMAL) Comprehensive metabolic panel (12/07/2024 12:56 AM P[employer] LEADER) Pathologist [facility] Sodium 143 135 - 145 mmol/L Potassium, pl 4.2 3.3 - 4.9 mmol/L [facility] Chloride 101 97 - 110 mmol/L [facility] CO2 36(H) 22 - 32 mmol/L [facility] Anion gap 6 2 - 15 mmol/L [facility] BUN 23 6 - 25 mg/dL [facility] Creatinine 1.14 0.80 - 1.30 mg/dL [facility] Glucose 157 70 - 199 mg/dL [facility] Comment: Interpretive Data Fasting glucose >/= 126 mg/dl is diagnostic for diabetes. Fasting is defined as no caloric intake for at least 8 hours. Fasting glucose between 100 mg/dl to 125 mg/dl is diagnostic of prediabetes. In a patient with classic symptoms of hyperglycemia or hyperglycemic crisis, a random glucose >/= 200 mg/dl is diagnostic for diabetes. In the absence of unequivocal hyperglycemia, results should be confirmed by repeat testing. The classification and Diagnosis of Diabetes Diabetes Care 2021; 46: S19-S40. Current interpretive data was last revised 2022. Calcium 9.2 8.5 - 10.3 mg/dL [facility] Bilirubin, total <0.2 0.1 - 1.2 mg/dL [facility] Protein, pl 6.2(L) 6.5 - 8.5 g/dL [facility] Albumin 3.9 3.5 - 5.0 g/dL [facility] Alk phos 65 40 - 130 Units/L [facility] ALT 11 7 - 55 Units/L [facility] AST 15 10 - 50 Units/L [facility] Blood 12/07/2024 12:5 6 AM POWDER AND PRIMER CANNING LEADER 12/07/2024 1:08 AM POWDER AND PRIMER CANNING LEADER us Terri Chavez MD PhD LAB BLOOD ORDERABLES Final Result Performing Organization Address City/[facility] Co de Phone Number [facility] Department [place] [address] * Hepatitis C antibody Blood (03/13/2024 5:12 AM CDT) Hep C Ab Nonreactive Nonreactive Comment:Antibodies to HCV no t detected. Does NOT exclude the possibility of recent exposure to HCV. Current interpretive data was last revised on 22 Blood 03/13/2024 5:12 AM CDT 03/13/2024 5:40 AM CDT Tru Munoz MD LAB MICROBIOLOGY - GEN ERAL ORDERABLES Final Result Performing Organization Address [facility] Co de Phone Number [facility] Department [place] [address] from Last 3 Months or Most Recently Relevant to Health Maintenance Insurance [address] [place] [address] OR [employer] [facility] Advance Directives For more information, please contact: [phone] * Full Code (Latest Code Status on File) Date Activated Date Inactivated Comments 11/28/2024 11:38 PM 12/09/2024 6:03 PM * Full Code Date Activated Date Inactivated Comments 09/28/2024 7:55 PM 10/02/2024 5:08 PM * Full Code Date Activated Date Inactivated Comments 2024 6:38 PM 09/01/2024 6:30 PM * Full Code Date Activated Date Inactivated Comments 07/29/2024 4:49 PM 08/17/2024 3:39 PM * Full Code Date Activated Date Inactivated Comments 06/26/2024 1:40 AM 07/17/2024 12:16 AM Care Teams Quality Analyst Relationship Specialty Start Date End Date No, Physician PCP - General 01/05/18 Pb Rodriges MD Radiation Oncologist Radiation Oncology 10/12/23 Dinesh Polo MD [address] [facility] [address] [place] [address] Medical Oncologist/Paraffin Plant Operator Medical Oncology 10/19/23 Maya Teague MD [facility] [address] [place] [address] Consulting Physician Hospice and Palliative Medicine 05/31/24 Ana Andre, RN Registered Nurse Pulmonary Disease 12/12/24
--- OUTSIDE RECORDS SUMMARY | 2025-03-09 15:32 | XMS_ITS ---
Author Organization [facility] Address [address] [place] [address] Care Team Providers Care Speech Therapist Name Role Phone No, Physician Primary Care Provider [phone] Pb Rodriges MD Unavailable [phone] Dinesh Polo MD Unavailable [phone] Maya Teague MD Unavailable [phone] Ana Andre RN Unavailable Faiza vailable Active Problems Problem Noted Date Diagnosed Date Dyspnea 12/03/2024 Assessment & Plan (12/09/2024 11:41 AM CONNIE SCRATCHER): This is a 49-year-old male with history [...] 09/28/2024 Assessment & Plan (10/01/2024 12:15 PM CONNIE SCRATCHER): - Presented with productive cough, wheezing. Hx [...] 09/28/2024 Assessment & Plan (09/28/2024 8:49 PM CONNIE SCRATCHER): For his SCC of left maxillary sinus, [...] 09/28/2024 Assessment & Plan (09/28/2024 8:50 PM CONNIE SCRATCHER): -continue duloxetine 60mg daily, hydroxyzine 25mg qhs PRN and zyprexa 5mg PO QHS VTE (venous thromboembolism) 09/28/2024 Assessment & Plan (09/28/2024 8:51 PM CONNIE SCRATCHER): Resume xarelto GERD (gastroesophageal reflux disease) Assessment & Plan (09/28/2024 8:51 PM CONNIE SCRATCHER): Resume PPI Nausea and vomiting, unspecified vomiting type 1 10/27/2023 Assessment & Plan (12/09/2024 10:26 AM CONNIE SCRATCHER): A week of vomiting, resolved now, no [...] stable Assessment & Plan (09/01/2024 1:46 PM CONNIE SCRATCHER): Pt presents with several days of N/V. [...] 07/09/2024 Assessment & Plan (10/01/2024 12:15 PM CONNIE SCRATCHER): Diarrhea x3 days. Could be side effect from Pembrolizumab. - Improved. Assessment & Plan (07/11/2024 4:56 PM CDT): Developed watery diarrhea on 07/09. -Held pericolace. -Started on prn imodium. - resolved. Asthma exacerbation 07/06/2024 Assessment & Plan (10/02/2024 10:05 AM CONNIE SCRATCHER): Mr. Tilley is a 49yo M w/ [...] 10/08 Assessment & Plan (10/01/2024 12:14 PM CONNIE SCRATCHER): - PFTs 07/04 - There is a [...] BID. Assessment & Plan (08/27/2024 10:06 PM CONNIE SCRATCHER): No c/f exacerbation -cont breo for symbicort [...] PCR, PJP DFA, AFB neg, cx grew Carlyel. Id consulted, no indication for rx for [...] 05/11/2024 Assessment & Plan (08/27/2024 10:04 PM CONNIE SCRATCHER): Cont home xarelto Assessment & Plan (05/15/2024 [...] 04/23/2024 Assessment & Plan (09/29/2024 1:26 PM CONNIE SCRATCHER): Nausea/vomiting 2/2 to pembrolizumab -zofran prn, compazine prn -resume zyprexa nightly Assessment & Plan (08/14/2024 10:08 AM CONNIE SCRATCHER): Deemed likely from maxillary CA. Work-up so [...] 03/12/2024 Assessment & Plan (12/06/2024 2:22 PM CONNIE SCRATCHER): Metastatic SCC L maxillary sinus, p16 +, [...] Complicated by severe cancer-related pain requiring dilaudid MOTOR AND GENERATOR BRUSH CUTTER, stopped 03/22. - d/w palliative care MD, recommended the below regimen with plans for outpatient follow up within 2 weeks of discharge: - continue PRN MSIR 30 q3 with dilaudid 1mg q3 IV for breakthrough - return to LEGAL ASSISTANT Fentanyl patch 250mcg q72h (increased 03/15 to [...] 03/12/2024 Assessment & Plan (08/14/2024 10:07 AM CONNIE SCRATCHER): Treated for organizing pna in most recent admission. CT shows improvement. He has finished abx and tapering steroids. BAL cultures negative. - Planned f/u with pulm in 4 weeks Assessment & Plan (03/19/2024 1:00 PM CDT): Recent admission 03/01-03/09/24. Presented with 3 days of tenderness to port site, fevers, vomiting, diarrhea. Neutropenic at the time. Blood cultures no growth to date. ID sephora operations consultant recommended port removal. Port removed by [...] 12/24/2023 Assessment & Plan (12/09/2024 10:27 AM CONNIE SCRATCHER): One week of cough, shortness of breath,green [...] - Outpatient tympanostomy tube placement; will call [phone] to arrange Mixed conductive and sensori neural [...] in the left calvarium > right medial loan documents closer likely reflecting evolving changes of recent completed [...] 12/19/2023 Assessment & Plan (11/30/2024 12:38 AM CONNIE SCRATCHER): Unclear why he self dc'ed xarelto Continue Xarelto while inpatient Assessment & Plan (08/16/2024 10:52 AM CONNIE SCRATCHER): Continue xarelto, briefly held for procedure with [...] regimen: fentanyl patch 250mcg q72hr + methadone 10/5/10 (TID dosing) with MSIR 30 q3 PRN for breakthrough. Pain controlled at this time - Reordered above regimen and home gabapentin, tylenol PRN - Given persistent nausea, re-engaged palliative care on 04/23. Decreased regimen to: Fentanyl patch 150mcg q72hr, methadone 10 TID, MSIR 30 Q3hr. Right-sided sensorineural hearing loss Assessment & Plan (11/21/2023 6:22 PM CONNIE SCRATCHER): Patient reports new progressive R sided hearing [...] possible appetite benefit - Outpatient referral to [facility]; provide patient with Zoom meeting resources - Continue to encourage/motivate patient; spiritual counseling prn Rhinorrhea 11/17/2023 Assessment & Plan (11/18/2023 5:28 PM CONNIE SCRATCHER): Patient reports constant clear watery nasal drainage from nose. -Beta-2 transferrin negative suggests against CSF leak -treatment of SCC as discussed elsewhere -symptomatic management Suicide attempt 11/15/2023 Assessment & Plan (11/17/2023 5:20 PM CONNIE SCRATCHER): SI attempt on 11/13 w/ L wrist cutting and attempted opioid overdose. Patient cites uncontrolled pain as provocation for suicide attempt and expressed regret on presentation in ER. Cleared by psych in ER for suicide risk. -Does not appear suicidal any longer. CTM -siteman counseling for support. Patient amenable Wrist laceration 11/15/2023 Assessment & Plan (11/17/2023 5:20 PM CONNIE SCRATCHER): secondary to suicide attempt -Plastics consulted. S/p wash & repair & splint. NWB LUE. -Augmentin for prophylaxis Squamous cell carcinoma of oropharynx 11/01/2023 Assessment & Plan (08/27/2024 10:02 PM CONNIE SCRATCHER): Follows with [facility] currently on maintenance pembro. CT unchanged from prior. Cont home pain medications--methadone , MSIR 45mg q3h PRN, add IV dilaudid 2nd line, cont gabapentin 900mg TID, cont duloxetine 60mg every day Assessment & Plan (08/14/2024 10:07 AM CONNIE SCRATCHER): Diagnosed in 09/2023. p16+ squamous cell carcinoma. S/p carbo/paclitaxel 11/18/23. Also got xRT with . Last seen 05/2024. Last dose of pembrolizumab 05/21/24. Planned for scans at next follow up. He ended up getting MRIs inpt in last admission but non-diagnostic 2/2 extreme motion artifact. - F/u with [facility] as outpatient Assessment & Plan (11/20/2023 3:25 PM CONNIE SCRATCHER): Diagnosed 09/2023. Extensive involvement of L face, sinuses, and L orbit with intracranial extension. Completed palliative radiation 1/15 - 11/09 ([address] head/neck/face [...] bactrim Assessment & Plan (11/07/2023 3:13 PM CONNIE SCRATCHER): Diagnosed on biopsy 10/07/2023 of left jaw [...] 10/16/2023 Assessment & Plan (10/16/2023 3:32 PM CONNIE SCRATCHER): Noted on exam here. -tried to Rx [...] sulfate Assessment & Plan (10/16/2023 3:33 PM CONNIE SCRATCHER): Hgb on day of discharge is 9.4 from 10-11s 3-4 days ago. No signs of bleeding likely post op bleeding and inflammation -repeat CBC at clinic visit this week Cancer 10/12/2023 Cancer related pain 10/06/2023 Assessment & Plan (12/05/2024 12:25 PM CONNIE SCRATCHER): Continue Morphine IR Q3 prn and methadone; added prn dilaudid on 12/04 EKG w/o prolonged QTC as of 11/28 Assessment & Plan (08/17/2024 9:38 AM CONNIE SCRATCHER): Overall improving since CN V3 block - Continue duloxetine 30 mg daily and gabapentin 900 mg TID, prn hydromorphone IV - Previously on methadone [id number]. Increased methadone to 30mg tid briefly and [...] constipation Assessment & Plan (11/21/2023 6:24 PM CONNIE SCRATCHER): secondary to extensive disease and osseous destruction. -Received Dilaudid MOTOR AND GENERATOR BRUSH CUTTER for pain control (11/16 - 11/21) -continue fentanyl patch 175 mcg q 72 hrs & PO PRN oxycodone 40 mg q4 hrs prn. PRN IV dilaudid 2 mg q4 hrs prn breakthrough -adjunctive meds: gabapentin 800 TID Assessment & Plan (11/07/2023 3:13 PM CONNIE SCRATCHER): At home, was on MScontin, and PRN oxycodone. Pain not controlled on this. - started fentanyl patch 100mcg on 11/03 PM --> increased fentanyl patch to 150mcg / day 11/05. Patient has had so much imrpovement in pain since starting this. Using oxycodone more sparingly, has not used morphine in > 36h - PA obtained for fentanyl Assessment & Plan (10/16/2023 3:32 PM CONNIE SCRATCHER): Reported rapidly worsening left facial pain and swelling. Required MOTOR AND GENERATOR BRUSH CUTTER pump (D/Brendon 2/2 bradycardia and hypoxia episode [...] Close follow up with ENT outpatient - [facility] Pulmonary nodules 10/05/2023 Assessment & Plan (07/03/2024 [...] followed Assessment & Plan (10/13/2023 5:35 PM CONNIE SCRATCHER): 48M presenting with newly diagnosed squamous cell [...] biopsy. Assessment & Plan (10/15/2023 10:39 AM CONNIE SCRATCHER): PET scan showed bilateral pulmonary nodules in the setting of head/neck cancer c/f lung mets. initially planned to bx pulm nodules on PET with EBV workup after tumor board discussion, but Discussed with ENT, onc, IP - Pulm nodules too small and not acessible. No nodes amenable to bx. See #SCC Dental caries 10/04/2023 Assessment & Plan (10/15/2023 10:43 AM CONNIE SCRATCHER): Panorex showed large destructive lesion in the [...] 2-4 weeks by calling the office at [phone]. Squamous cell carcinoma of neck 09/30/2023 Assessment [...] regimen: fentanyl patch 150mcg q72hr + methadone 10/10/10 (TID dosing) with MSIR 30 q3 PRN [...] complicated by severe cancer-related pain; required dilaudid MOTOR AND GENERATOR BRUSH CUTTER for effective management in prior hospitalization. Pall care consulted and pain regimen was adjusted with good control prior to discharge: fentanyl patch 250mcg q72hr + methadone 10/5/10 (TID dosing) with MSIR 30 q3 PRN for breakthrough. - Onc folllowing - Consented for blood, T+S active - Pain control as elsewhere - Port consideration as outpatient once viral illness is improved - Transfuse to Hb >8 Assessment & Plan (10/15/2023 10:40 AM CONNIE SCRATCHER): New diagnosis of head and neck cancer in the last 3 months with pathology resulted at [facility]. Suspected locally invasive squamous cell cancer of [...] 12/09/2015 Assessment & Plan (08/14/2024 10:05 AM CONNIE SCRATCHER): Patient reported on 08/07 that he has [...] 04/18/2008 Allergic rhinitis 02/01/2008 Insomnia, unspecified 05/13/2006 Current Treatment and Therapy Plans Alteplase (CATHFLO ACTIVASE) - orders for occluded catheters* Plan Start Date: 02/20/2024 Plan Provider:Dinesh Polo MD Linked Problems Cancer (HCC) Treatment Medications No medications scheduled. IV Maintenance Therapy Plan* Plan Start Date:08/20/2024 Plan Provider:Dinesh Polo MD Linked Problems Head and neck cancer (HCC) Treatment Medications No medications scheduled. Pembrolizumab / PACLItaxel / CARBOplatin 21 Day Cycles then Pembrolizumab 21 Day Cycles - SCC Neck* Plan Start Date:11/13/2023 Plan Provider:Dinesh Polo MD Linked Problems Squamous cell carcinoma of n amarjit Treatment Medications Current Day (Day 1 , Cycle 11 - Planned for 12/17/2024) Next Day (Day 1, Cycle 12 - Planned for 01/07/2025) CARBOplatin (PARAPLATIN)CARBOplatin (PARAPLATIN) IVPB in 250 mLPACLitaxel (TAXOL)PACLItaxel (TAXOL) IVPB in 500 mLpembrolizumab (KEYTRUDA)pembrolizumab (KEYTRUDA) IVPB in 100 mL pembrolizumab (KEYTRUDA) 200 mg in sodium chloride 0.9% 100 mL pembrolizumab (KEYTRUDA) 200 mg in sodium chloride 0.9% 100 mL Other Current Plans Adult BMT/ONC - Blood and/or Platelet Administration for Outpatient* Plan Start Date:12/13/2023 Plan Provider:Dinesh Polo MD Linked Problems Anemia, unspecified type Treatment Medications No medications scheduled. Hydration Therapy Plan* Plan Start Date:12/12/2023 Plan Provider:Dinesh Polo MD Linked Problems Dehydration Treatment Medications No medications scheduled. Past Treatment and Therapy Plans No past plan information found. Radiation Treatments * Course [id number]_24 10/24/2023 - 11/09/2023 Treatment Period Energy Fraction Dose Fractions Total Dose Plans Planned LT_HN 10/24/2023 - 11/09/2023 300 10 3,000 Reference Points Delivered HN_DPV 10/24/2023 - 11/09/2023 3,000 Lifetime Dose Tracking * Chemical Lifetime Dose Automatic Entry Manual Entr y Fluoro Time 1.5 minutes 1.5 minutes 0 minutes Air kerma at the reference point (Ka,r) 8.1 mGy 8 .1 mGy 0 mGy DLP 15,258 mGycm 15,258 mGycm 0 mGycm Resolved Problems Problem Noted Date Diagnosed Date Resolved Date Cough 11/28/2024 11/30/2024 Hyponatremia 07/29/2024 08/08/2024 Assessment & Plan (08/07/2024 1:05 PM CDT): 2/2 dehydration from nausea, vomiting and poor po intake. Improved with fluids. Nausea and vomiting 07/29/2024 08/07/20 24 Oropharyngeal carcinoma 03/18/202403/10 Assessment & Plan (03/18/2024 [...] fluids. Assessment & Plan (11/16/2023 4:13 PM CONNIE SCRATCHER): Cr 1.48 on presentation. Likely pre renal given concurrent hyponatremia. Also has naproxen on med list but pt states has not taken in the last few days. S/p fluids in Ed, repeat Cr down to 1.00. - Daily BMP Vision loss of left eye 11/01/2023 10/2 06/2024 Assessment & Plan (07/29/2024 5:13 PM CDT): [...] pain Assessment & Plan (11/05/2023 1:31 PM CONNIE SCRATCHER): Presenting with complete vision loss of left eye. CT in the ED concerning for tumor progression, new pathologic mandibular fracture (left), and increased gas and fluid predominantly within the left maxillary sinus with communication to the oral cavity, concerning for superimposed infection/phlegmon. Evaluated by ophthalmology in ED. No indicated procedures Hyponatremia 10/02/2023 12/06/2024 Assessment & Plan (12/03/2024 6:25 PM CONNIE SCRATCHER): Chronic intermittent hyponatremia with Na levels between 126-135 Continue home medication salt tablets Follow Na levels Asymptomatic Assessment & Plan (10/01/2024 12:13 PM CONNIE SCRATCHER): - Likely hypovolemic hypona vs SIADH. Has decrease PO intake and diarrhea Na 126. Started 09/10, oncologist gave IVF and started salt tabs -TSH normal and Euvolemic on exam - improved to 130 s/p IVF. Monitored off of salt tabs and improved to 135. - Discharging with out salt tabs. Assessment & Plan (08/29/2024 1:18 PM CONNIE SCRATCHER): Na 127 likely 2/2 N/V with poor po intake. Received IV fluids after which it improved. Monitor Assessment & Plan (07/02/2024 5:40 PM CDT): - On 07/02, Na-135 - Hyponatremia resolved with good solute intake - restarted IVF on 07/02 - s/p Ure-Na - Monitor BMP closely Assessment & Plan (10/04/2023 7:53 AM CONNIE SCRATCHER): Likely due to decreased intake, he says that he drinks large quantities of water - urine electrolytes sodium 26, chloride 26, potassium 23, urine [place] 191, serum [place] 289 - NA cont to up trending. Cont to monitor - cont normal saline 75 cc an hour and trend serm sodium Psoriasis 12/05/2014 05/12/2024 Leukocytosis 05/30/2012 04/19/2024 Assessment & Plan (11/07/2023 3:13 PM CONNIE SCRATCHER): On steroids at home. Likely in setting [...]
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
--- OUTSIDE RECORDS SUMMARY | 2025-03-09 15:32 | XMS_ITS | Encounter Summary ---
Author Organization [facility] Healthcare Address [address] [place] [id number] Care Team Providers Care Maintenance Instructor Name Role Phone No, Physician Primary Care Provider Pb Rodriges MD Unavailable [phone] Dinesh Polo MD Unavailable Maya Teague MD Unavailable Ana Andre RN Unavailable Faiza vailable Encounter Details Date Type Department Care Team (Late st Contact Info) Description 11/09/2023 Completion of Therapy [facility] Radiation Oncology [address] [facility] [place] [address] Pb Rodriges MD [address] [facility] [address] [place] [address] Social History Tobacco Use Types Packs/Day Years Used Date Smoking Tobacco: Never Smokeless Tobacco: Never [facility] Utilities Answer Date Recorded In the past 12 months has [employer] electric, gas, oil, or water company threatened to shut off services in your home? No 11/02/2023 Social Connection and Isolat ion Panel [NHANES] Answer Date Recorded In a typical week, how many times do you talk on the phone with family, friends, or neighbors? More than three times a week 11/02/2023 How often do you get togethe r with friends or relatives? More than three times a week 11/02/2023 How often do you attend chur ch or pentecostalism services? Patient declined 11/02/2023 Do you belong to any clubs o r organizations such as caodaism groups, unions, fraternal or athletic groups, or school groups? Patient declined 11/02/2023 How often do you attend meet ings of the clubs or organizations you belong to? Patient declined 11/02/2023 Are you , , di vorced, , never , or living with a partner? 11/02/2023 AUDIT-C Answer Date Recorded Q1: How often do you have a drink containing alcohol? Never 11/11/2023 Q2: How many drinks containi ng alcohol do you have on a typical day when you are drinking? Patient does not drink Q3: How often do you have si x or more drinks on one occasion? Never 11/11/2023 Overall Financial Resource Strain (CARDIA) Answe r Date Recorded How hard is it for you to pa y for the very basics like food, housing, medical care, and heating? Somewhat hard 11/02/2023 Hunger Vital Sign Answer Date Recorded Within the past 12 months, y ou worried that your food would run out before you got the money to buy more. Never true 11/02/19 Within the past 12 months, t he food you bought just didn't last and you didn't have money to get more. Never true 11/02/2023 PRAPARE - Transportation Answer Date Re corded In the past 12 months, has l ack of transportation kept you from medical appointments or from getting medications? No 10/11 In the past 12 months, has l ack of transportation kept you from meetings, work, or from getting things needed for daily living? No 11/02/2023 Housing Stability Vital Sign Answer Steve e Recorded In the last 12 months, was t here a time when you were not able to pay the mortgage or rent on time? No 11/02/2023 In the last 12 months, how many places have you lived? 1 11/02/2023 In the last 12 months, was t here a time when you did not have a steady place to sleep or slept in a alf (including now)? No 11/02/2023 Personal Safety Answer Date Recorded Getting School Help Needed Denies 09/30 Sex and Gender Information Value Date Recorded Sex Assigned at Not on file Legal Sex Male 3:48 AM ATTENDANT ARCADE Gender Identity Male 10/31/2023 9:39 AM ATTENDANT ARCADE Sexual Orientation Straight 10/31/2023 9: 39 AM ATTENDANT ARCADE documented as of this encounter Functional Status * Audit-C Score Answer Date of Assessment Author 0 11/11/2023 11:02 AM Ginette Hall RN * Question Answer Date of Assessment Author Q1: How often do you have a drink containing alcohol? Never 11/11/2023 11:02 AM Thierno Hall RN Q2: How many drinks containing alcohol do you have on a typical day when you are drinking? Patient does not drink 11/11/2023 11:02 AM Thierno Hall RN Q3: How often do you have six or more drinks on one occasion? Never 11/11/2023 11:02 AM Thierno Hall RN documented as of this encounter Progress Notes * Venkat Campos MD - 11/09/2023 11:59 PM CST RADIATION ONCOLOGY COMPLETION OF THERAPY (COT) PATIENT NAME: Brian Tilley DATE OF : 1975 DATE OF SERVICE: 11/09/2023 ATTENDING PHYSICIAN: Pb Rodriges MD REFERRING PHYSICIAN(S): No ref. provider found PCP: No, Physician IDENTIFYING DATA: Cancer Staging No matching staging information was found for the patient. Mr. Tilley is a 48 y.o. male 48 y.o. 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 Plan for palliative radiotherapy to primary site, 30 Gy in 10 fractions, to be followed by initiation of systemic therapy.. He completed the course of radiation treatment as below. Treatment Delivered: Start Date: 10/24/23 End Date: 11/09/23 Radiation Treatments No active radiation treatments to show. Radiation Treatments Historical Plans LT_HN Most recent treatment: Dose planned: 300 cGy (fraction 10 on 11/09/2023) Total: Dose planned: 3,000 cGy Elapsed Days: 16 Reference Points HN_DPV Most recent treatment: Dose given: 0 cGy (on 11/09/2023) Total: Dose given: 3,000 cGy Elapsed Days: 16 Concurrent Therapy: None Pain Plan: RAD ONC PAIN PLAN: The patient's pain is currently being managed by his inpatient teams. Tolerance to Treatment: Mr. Tilley was hospitalized for much of his course of radiotherapy due to pain, facial swelling, and vision deficits managed with an analgesics and dexamethasone. By the end of radiotherapy his painwas better controlled. Disposition: Follow up with radiation oncology on an as-needed basis. Follow up with medical oncology as previously arranged. Call with any concerns. Please do not hesitate to contact me with any questions. Venkat Campos MD, MS Resident Physician Department of Radiation Oncology Cosigned by Pb Rodriges MD at 11/17/2023 2:10 PM ATTENDANT ARCADE NDANT ARCADE NDANT ARCADE Associated attestation - Pb Rodriges MD - 11/17/2023 2:10 PM ATTENDANT ARCADE I have seen and examined the patient. I agree with the findings and plan of care as documented in the resident/fellow's note. documented in this encounter Plan of Treatment Not on file documented as of this encounter Visit Diagnoses Not on filedocumented in this encounter Additional Health Concerns Infection Onset Date Last Indicated Resolved Time COVID: Suspected 12/19/2023 12/19/2023 12/19/2023 9:47 PM CDT COVID: Suspected 12/23/2023 12/23/2023 12/23/2023 7:04 AM CDT COVID: Suspected 01/23/2024 01/23/2024 01/23/2024 4:00 PM CDT COVID: Suspected 03/01/2024 03/01/2024 03/02/2024 12:41 AM CDT COVID19 Comment:IP Review - pt afebrile, off antipyretics, asymptomatic Shaneka Whalen 03/24/2024 03/19/2024 Eligible for review 03/24. Must be afebrile and off of antipyretics x24 hours and showing respiratory improvement in order to be considered COVID recovered. Maame Hoang RN 03/13/2024 03/13/2024 03/24/2024 12:33 PM CDT COVID: Recovered 03/24/2024 03/24/2024 06/12/2024 3:05 AM CDT COVID: Suspected 04/19/2024 04/19/2024 04/19/2024 2:08 PM CDT C. difficile suspected 05/10/2024 05/10/202405/12 3:09 PM CDT COVID: Suspected 05/10/2024 05/10/2024 05/10/2024 5:20 PM CDT COVID: Suspected 06/25/2024 06/25/2024 06/25/2024 3:52 PM CDT COVID: Suspected 06/25/2024 06/25/2024 06/25/2024 10:42 PM CDT COVID: Suspected 09/28/2024 09/28/2024 09/28/2024 5:58 PM ATTENDANT ARCADE C. difficile suspected 09/28/2024 09/28/202410/01 9:21 PM ATTENDANT ARCADE Ring Surveillance Comment:Ring Surveillance - [id number] [address] 09/29/2024 09/29/2024 10/02/2024 7:[address] Coronavirus, droplet 09/29/2024 09/29/202410/13/ 025 3:05 AM ATTENDANT ARCADE C. difficile suspected 12/06/2024 12/06/202412/06 6:36 PM ATTENDANT ARCADE documented as of this encounter Care Teams Maintenance Instructor Relationship Specialty Start Date End Date No, Physician PCP - General 01/05/18 Pb Rodriges MD Radiation Oncologist Radiation Oncology 10/12/23 Oppelt, Dinesh Lima MD [address] [facility] [address] [place] [address] Medical Oncologist/Greenskeeper Laborer Medical Oncology 10/19/23 Maya Teague MD [address] [place] [address] Consulting Physician Hospice and Palliative Medicine 05/31/24 Ana Andre, RN Registered Nurse Pulmonary Disease 12/12/24 documented as of this encounter
--- OUTSIDE RECORDS SUMMARY | 2025-03-09 15:32 | XMS_ITS | Clinical Summary ---
Author Organization [facility] Address [address] [place] [address] Care Team Providers Care Technology Services Manager Name Role Phone No, Physician Primary Care Provider [phone] Pb Rodriges MD Unavailable [phone] Dinesh Polo MD Unavailable [phone] Maya Teague MD Unavailable [phone] Ana Andre RN Unavailable Faiza vailable Allergies Active Allergy Reactions Criticality Noted Date [...] 12/03/2024 Assessment & Plan (12/09/2024 11:41 AM RESIDENT CARE DIRECTOR): This is a 49-year-old male with history [...] 09/28/2024 Assessment & Plan (10/01/2024 12:15 PM RESIDENT CARE DIRECTOR): - Presented with productive cough, wheezing. Hx [...] 09/28/2024 Assessment & Plan (09/28/2024 8:49 PM RESIDENT CARE DIRECTOR): For his SCC of left maxillary sinus, [...] 09/28/2024 Assessment & Plan (09/28/2024 8:50 PM RESIDENT CARE DIRECTOR): -continue duloxetine 60mg daily, hydroxyzine 25mg qhs PRN and zyprexa 5mg PO QHS VTE (venous thromboembolism) 09/28/2024 Assessment & Plan (09/28/2024 8:51 PM RESIDENT CARE DIRECTOR): Resume xarelto GERD (gastroesophageal reflux disease) Assessment & Plan (09/28/2024 8:51 PM RESIDENT CARE DIRECTOR): Resume PPI Nausea and vomiting, unspecified vomiting type 1 10/27/2023 Assessment & Plan (12/09/2024 10:26 AM RESIDENT CARE DIRECTOR): A week of vomiting, resolved now, no [...] stable Assessment & Plan (09/01/2024 1:46 PM RESIDENT CARE DIRECTOR): Pt presents with several days of N/V. [...] 07/09/2024 Assessment & Plan (10/01/2024 12:15 PM RESIDENT CARE DIRECTOR): Diarrhea x3 days. Could be side effect from Pembrolizumab. - Improved. Assessment & Plan (07/11/2024 4:56 PM CDT): Developed watery diarrhea on 07/09. -Held pericolace. -Started on prn imodium. - resolved. Asthma exacerbation 07/06/2024 Assessment & Plan (10/02/2024 10:05 AM RESIDENT CARE DIRECTOR): Mr. Tilley is a 49yo M w/ [...] 10/08 Assessment & Plan (10/01/2024 12:14 PM RESIDENT CARE DIRECTOR): - PFTs 07/04 - There is a [...] BID. Assessment & Plan (08/27/2024 10:06 PM RESIDENT CARE DIRECTOR): No c/f exacerbation -cont breo for symbicort [...] 05/11/2024 Assessment & Plan (08/27/2024 10:04 PM RESIDENT CARE DIRECTOR): Cont home xarelto Assessment & Plan (05/15/2024 [...] 04/23/2024 Assessment & Plan (09/29/2024 1:26 PM RESIDENT CARE DIRECTOR): Nausea/vomiting 2/2 to pembrolizumab -zofran prn, compazine prn -resume zyprexa nightly Assessment & Plan (08/14/2024 10:08 AM RESIDENT CARE DIRECTOR): Deemed likely from maxillary CA. Work-up so [...] 03/12/2024 Assessment & Plan (12/06/2024 2:22 PM RESIDENT CARE DIRECTOR): Metastatic SCC L maxillary sinus, p16 +, [...] Complicated by severe cancer-related pain requiring dilaudid COMMUNICATION ASSISTANT, stopped 03/22. 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 CT shows improvement. He has finished abx and tapering steroids. BAL cultures negative. - Planned f/u with pulm in 4 weeks Assessment & Plan (03/19/2024 1:00 PM CDT): Recent admission 03/01-03/09/24. Presented with 3 days of tenderness to port site, fevers, vomiting, diarrhea. Neutropenic at the time. Blood cultures no growth to date. ID microsoft dynamics ax consultant recommended port removal. Port removed by [...] 12/24/2023 Assessment & Plan (12/09/2024 10:27 AM RESIDENT CARE DIRECTOR): One week of cough, shortness of breath,green [...] - Outpatient tympanostomy tube placement; will call [phone] to arrange Mixed conductive and sensori neural [...] in the left calvarium > right medial stonemason likely reflecting evolving changes of recent completed [...] 12/19/2023 Assessment & Plan (11/30/2024 12:38 AM RESIDENT CARE DIRECTOR): Unclear why he self dc'ed xarelto Continue Xarelto while inpatient Assessment & Plan (08/16/2024 10:52 AM RESIDENT CARE DIRECTOR): Continue xarelto, briefly held for procedure with [...] loss Assessment & Plan (11/21/2023 6:22 PM RESIDENT CARE DIRECTOR): Patient reports new progressive R sided hearing [...] possible appetite benefit - Outpatient referral to [facility]; provide patient with Zoom meeting resources - Continue to encourage/motivate patient; spiritual counseling prn Rhinorrhea 11/17/2023 Assessment & Plan (11/18/2023 5:28 PM RESIDENT CARE DIRECTOR): Patient reports constant clear watery nasal drainage from nose. -Beta-2 transferrin negative suggests against CSF leak -treatment of SCC as discussed elsewhere -symptomatic management Suicide attempt 11/15/2023 Assessment & Plan (11/17/2023 5:20 PM RESIDENT CARE DIRECTOR): SI attempt on 11/13 w/ L wrist cutting and attempted opioid overdose. Patient cites uncontrolled pain as provocation for suicide attempt and expressed regret on presentation in ER. Cleared by psych in ER for suicide risk. -Does not appear suicidal any longer. CTM -[facility] for support. Patient amenable Wrist laceration 11/15/2023 Assessment & Plan (11/17/2023 5:20 PM RESIDENT CARE DIRECTOR): secondary to suicide attempt -Plastics consulted. S/p wash & repair & splint. 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 -Augmentin for prophylaxis Squamous cell carcinoma of oropharynx 11/01/2023 Assessment & Plan (08/27/2024 10:02 PM RESIDENT CARE DIRECTOR): Follows with [facility] currently on maintenance pembro. CT unchanged from prior. Cont home pain medications--methadone , MSIR 45mg q3h PRN, add IV dilaudid 2nd line, cont gabapentin 900mg TID, cont duloxetine 60mg every day Assessment & Plan (08/14/2024 10:07 AM RESIDENT CARE DIRECTOR): Diagnosed in 09/2023. p16+ squamous cell carcinoma. S/p carbo/paclitaxel 11/18/23. Also got xRT with . Last seen 05/2024. Last dose of pembrolizumab 05/21/24. Planned for scans at next follow up. He ended up getting MRIs inpt in last admission but non-diagnostic 2/ extreme motion artifact. - F/u with [facility] as outpatient Assessment & Plan (11/20/2023 3:25 PM RESIDENT CARE DIRECTOR): Diagnosed 09/2023. Extensive involvement of L face, [...] bactrim Assessment & Plan (11/07/2023 3:13 PM RESIDENT CARE DIRECTOR): Diagnosed on biopsy 10/07/2023 of left jaw [...] 10/16/2023 Assessment & Plan (10/16/2023 3:32 PM RESIDENT CARE DIRECTOR): Noted on exam here. -tried to Rx [...] sulfate Assessment & Plan (10/16/2023 3:33 PM RESIDENT CARE DIRECTOR): Hgb on day of discharge is 9.4 from 10-11s 3-4 days ago. No signs of bleeding likely post op bleeding and inflammation -repeat CBC at clinic visit this week Cancer 10/12/2023 Cancer related pain 10/06/2023 Assessment & Plan (12/05/2024 12:25 PM RESIDENT CARE DIRECTOR): Continue Morphine IR Q3 prn and methadone; added prn dilaudid on 12/04 EKG w/o prolonged QTC as of 11/28 Assessment & Plan (08/17/2024 9:38 AM RESIDENT CARE DIRECTOR): Overall improving since CN V3 block - Continue duloxetine 30 mg daily and gabapentin 900 mg TID, prn hydromorphone IV - Previously on methadone [id number]. Increased methadone to 30mg tid briefly and now switched back to home dose (9am-3pm-9pm) post procedure - Monitor QTc while on methadone - Consulted [facility] and underwent for L trigeminal nerve [...] constipation Assessment & Plan (11/21/2023 6:24 PM RESIDENT CARE DIRECTOR): secondary to extensive disease and osseous destruction. -Received Dilaudid COMMUNICATION ASSISTANT for pain control (11/16 - 11/21) -continue fentanyl patch 175 mcg q 72 hrs & PO PRN oxycodone 40 mg q4 hrs prn. PRN IV dilaudid 2 mg q4 hrs prn breakthrough -adjunctive meds: gabapentin 800 TID Assessment & Plan (11/07/2023 3:13 PM RESIDENT CARE DIRECTOR): At home, was on MScontin, and PRN oxycodone. Pain not controlled on this. - started fentanyl patch 100mcg on 11/03 PM --> increased fentanyl patch to 150mcg / day 11/05. Patient has had so much imrpovement in pain since starting this. Using oxycodone more sparingly, has not used morphine in > 36h - PA obtained for fentanyl Assessment & Plan (10/16/2023 3:32 PM RESIDENT CARE DIRECTOR): Reported rapidly worsening left facial pain and swelling. 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 Assessment & Plan (10/15/2023 10:39 AM RESIDENT CARE DIRECTOR): PET scan showed bilateral pulmonary nodules in the setting of head/neck cancer c/f lung mets. initially planned to bx pulm nodules on PET with EBV workup after tumor board discussion, but Discussed with ENT, onc, IP - Pulm nodules too small and not acessible. No nodes amenable to bx. See #SCC Dental caries 10/04/2023 Assessment & Plan (10/15/2023 10:43 AM RESIDENT CARE DIRECTOR): Panorex showed large destructive lesion in the [...] 2-4 weeks by calling the office at [phone]. Squamous cell carcinoma of neck 09/30/2023 Assessment [...] regimen: fentanyl patch 150mcg q72hr + methadone 07/19/10 (TID dosing) with MSIR 30 q3 PRN [...] complicated by severe cancer-related pain; required dilaudid COMMUNICATION ASSISTANT for effective management in prior hospitalization. Pall care consulted and pain regimen was adjusted with good control prior to discharge: fentanyl patch 250mcg q72hr + methadone 07/14/10 (TID dosing) with MSIR 30 q3 PRN for breakthrough. - Onc folllowing - Consented for blood, T+S active - Pain control as elsewhere - Port consideration as outpatient once viral illness is improved - Transfuse to Hb >8 Assessment & Plan (10/15/2023 10:40 AM RESIDENT CARE DIRECTOR): New diagnosis of head and neck cancer in the last 3 months with pathology resulted at [facility]. Suspected locally invasive squamous cell [...] 12/09/2015 Assessment & Plan (08/14/2024 10:05 AM RESIDENT CARE DIRECTOR): Patient reported on 08/07 that he has [...] and vomiting 07/29/2024 08/07/20 24 Oropharyngeal carcinoma 03/18/2024 06/10/2023 Assessment & Plan (03/18/2024 8:44 AM CDT): [...] fluids. Assessment & Plan (11/16/2023 4:13 PM RESIDENT CARE DIRECTOR): Cr 1.48 on presentation. Likely pre renal [...] pain Assessment & Plan (11/05/2023 1:31 PM RESIDENT CARE DIRECTOR): Presenting with complete vision loss of left eye. CT in the ED concerning for tumor progression, new pathologic mandibular fracture (left), and increased gas and fluid predominantly within the left maxillary sinus with communication to the oral cavity, concerning for superimposed infection/phlegmon. Evaluated by ophthalmology in ED. No indicated procedures Hyponatremia 10/02/2023 12/06/2024 Assessment & Plan (12/03/2024 6:25 PM RESIDENT CARE DIRECTOR): Chronic intermittent hyponatremia with Na levels between 126-135 Continue home medication salt tablets Follow Na levels Asymptomatic Assessment & Plan (10/01/2024 12:13 PM RESIDENT CARE DIRECTOR): - Likely hypovolemic hypona vs SIADH. Has decrease PO intake and diarrhea Na 126. Started 09/10, oncologist gave IVF and started salt tabs -TSH normal and Euvolemic on exam - improved to 130 s/p IVF. Monitored off of salt tabs and improved to 135. - Discharging with out salt tabs. Assessment & Plan (08/29/2024 1:18 PM RESIDENT CARE DIRECTOR): Na 127 likely / N/V with poor po intake. Received IV fluids after which it improved. Monitor Assessment & Plan (07/02/2024 5:40 PM CDT): - On 07/02, Na-135 - Hyponatremia resolved with good solute intake - restarted IVF on 07/02 - s/p Ure-Na - Monitor BMP closely Assessment & Plan (10/04/2023 7:53 AM RESIDENT CARE DIRECTOR): Likely due to decreased intake, he says that he drinks large quantities of water - urine electrolytes sodium 26, chloride 26, potassium 23, urine Osom 191, serum Osmo 289 - NA cont to up trending. Cont to monitor - cont normal saline 75 cc an hour and trend serm sodium Psoriasis 12/05/2014 05/12/2024 Leukocytosis 05/30/2012 04/19/2024 Assessment & Plan (11/07/2023 3:13 PM RESIDENT CARE DIRECTOR): On steroids at home. Likely in setting of steroids vs infection. CT head and facial bones showing increased gas and fluid predominantly within the left maxillary sinus with communication to the oral cavity, concerning for superimposed infection/phlegmon. HDS in the ED. Other than facial swelling, leukocytosis, no other focal signs and symptoms of infection. - Unasyn until 11/03 -> augmentin. Completed course today Encounters Date Type Department Care Team Description 03/01/2025 Orders Only [facility] Oncology [facility] [address] [place] [address] Tova Mueller RN Squamous cell carcinoma of neck (Primary Dx) 02/28/2025 12:37 PM CDT - 02/28/2025 11:59 PM CDT Hospital Encounter [facility] Medical Office Building [address] [place] [address] Squamous cell carcinoma of neck Discharge Disposition: Discharge to home or self care 02/21/2025 Orders Only [facility] Pulmonary [address] [facility] Medicine 8th [place] [address] [place] [address] Dianelys Jolly MD 02/19/2025 3:00 PM CDT Telemedicine [facility] Outpatient [facility] - Palliative Care [address] [place] [address] Maya Teague MD Palliative care encounter (Primary Dx); Squamous cell carcinoma of oropharynx (HCC); Cancer associated pain; High risk medication use; Medication monitoring encounter; Insomnia, unspecified type; Therapeutic opioid induced constipation 02/15/2025 Telephone [facility]monary [address] [facility] 8th [place] [address] [place] [address] Estefania Tinoco RN 02/13/2025 Orders Only [facility] [address] [place] [phone] Tova Mueller, RN Squamous cell carcinoma of neck (Primary Dx) 02/07/2025 12:44 PM CDT - 02/07/2025 11:59 PM CDT Hospital Encounter [address] [address] Head and neck cancer (HCC); Squamous cell carcinoma of neck Discharge Disposition: Discharge to home or self care 02/04/2025 2:10 PM CDT - 02/04/2025 11:59 PM CDT Hospital Encounter [address] [address] Squamous cell carcinoma of neck Discharge Disposition: Discharge to home or self care 01/23/2025 3:00 PM CDT Telemedicine [facility] - Palliative Care [address] [place] [address] Maya Teague MD Palliative care encounter (Primary Dx); Squamous cell carcinoma of oropharynx (HCC); Cancer associated pain; High risk medication use; Medication monitoring encounter; Therapeutic opioid induced constipation; Nocturia 01/09/2025 Orders Only [facility] - Palliative Care [address] [place] [address] Tata Garcia, RN 01/08/2025 Telephone [facility] - Palliative Care [address] [place] [address] Brittany Carlos, ANABELA 01/04/2025 Orders Only [facility] - Palliative Care [address] [place] [address] Maya Teague MD 01/04/2025 Telephone [facility] - Palliative Care [address] [place] [address] Tata Garcia, RN 12/21/2024 Telephone [facility] - Palliative Care [address] [place] [address] Tata Garcia RN 12/20/2024 Orders Only [facility] 8th [place] [address] [place] [address] Dianelys Jolly MD Severe persistent asthma, unspecified whether complicated (HCC) (Primary Dx) 12/20/2024 Telephone [facility] [address] [place] [phone] Amisha Hardy for carltonra (Per CMM and terell auth is approved for ton and seferino until 12/20/25 benz [id number]) 12/19/2024 11:00 AM CDT Telemedicine [facility] - Palliative Care [address] [facility] [place] [address] Maya Teague MD Palliative care encounter (Primary Dx); Squamous cell carcinoma of oropharynx (HCC); Positive urine drug screen; Cancer related pain; Nausea; Medication monitoring encounter; Therapeutic opioid induced constipation 12/19/2024 Orders Only [facility] [address] [facility] Medicine 8th [place] [address] [place] [address] Dianelys Jolly MD 12/18/[address] [facility] - Palliative Care [address] [place] [address] Brittany Carlos RN 12/17/2024 2:30 PM CDT Infusion [address] [place] [phone] Dehydration (Primary Dx); Squamous cell carcinoma of neck; Head and neck cancer (HCC) 12/17/2024 2:00 PM CDT Office Visit [facility] Oncology [address] [place] [phone] Dinesh Polo MD Head and neck cancer (HCC) (Primary Dx); Squamous cell carcinoma of neck 12/17/2024 1:30 PM CDT Lab [address] [address] Squamous cell carcinoma of neck; Head and neck cancer (HCC); Cancer associated pain 12/17/2024 Social Work [facility] Oncology [address] [place] [address] [address] [place] [phone] Renae Morales LCSW 12/14/2024 Telephone [facility] [address] [facility] 8th [place] [address] [place] [phone] Ana Andre RN 12/13/2024 Orders Only [facility] Oncology [address] [place] [address] [address] [place] [phone] Tova Mueller RN Head and neck cancer (HCC) (Primary Dx); Cancer associated pain 11/28/2024 6:43 PM RESIDENT CARE DIRECTOR - 12/09/2024 1:20 PM RESIDENT CARE DIRECTOR Hospital Encounter [address] [phone] Radhames Hines MD [facility], MD Ame Collado Gizem, MD Aluko, Sheun, MD Nausea and vomiting, unspecified vomiting type (Primary Dx); Mild intermittent asthma with exacerbation; Cancer associated pain Discharge Disposition: Discharge to home or self care from Last 3 Months Immunizations Immunization Administration Dates Next Due Influenza, Quadrivalent, Spl it, Preservative Free, Intramuscular 10/01/2023 Influenza, Trivalent, Preservative Free, Intramu scular 08/02/2013 Pneumococcal Polysaccharide PPV23 06/06/2014 Tdap 11/15/2023 Surgical History Surgery Date Site/Laterality Comments KNEE SURGERY Left 14X, most recent ~2008; has hardware APPENDECTOMY BIOPSY Left jaw PORT REMOVAL 03/07/2024 N/A Medical History Medical History Date Comments Chronic knee pain Oropharyngeal cancer (HCC) Vision loss of left eye Anxiety mild Nausea 04/23/2024 Psoriasis 12/05/2014 Nausea and vomiting 07/29/2024 Family History Medical History Relation Name Comments Anesthesia problems Neg Hx Social History Tobacco Use Types Packs/Day Years Used Date Smoking Tobacco: Never Smokeless Tobacco: Never Tobacco Cessation:Counseling Given: Not Answered Alcohol Use Standard Drinks/Week Comments Not Currently 0 (1 standard drink = 0.6 oz pur e alcohol) [facility] Utilities Answer Date Recorded In the past 12 months has [employer], oil, or water [employer] threatened to shut off services in your [...] 11/30/2024 How often do you attend chur or evangelical services? Never 11/30/2024 Do you belong to any clubs o r organizations such as taoism groups, unions, fraternal or athletic groups, or [...] place to sleep or slept in a nursing home (including now)? No 02/10/2024 Housing Stability Vital Sign Answer Steve e Recorded In the last 12 months, was t here a time when you were not able to pay the mortgage or rent on time? No 11/30/2024 In the past 12 months, how m any times have you moved where you were living? 0 11/30/2024 At any time in the past 12 m [facility], were you homeless or living in a nursing home (including now)? No 11/30/2024 Personal Safety Answer Date Recorded Have you ever been in or are you currently in a harmful physical or emotional relationship or is someone making you feel afraid or unsafe? Denies 11/28/2024 Sex and Gender Information Value Date Recorded Sex Assigned at Not on file Legal Sex Male 3:48 AM RESIDENT CARE DIRECTOR Gender Identity Male 10/31/2023 9:39 AM RESIDENT CARE DIRECTOR Sexual Orientation Straight 10/31/2023 9: 39 AM RESIDENT CARE DIRECTOR Obstetrics History Last Filed Vital Signs Vital Sign Reading [...] 175.3 cm (5' 9) 11/28/2024 11:30 PM RESIDENT CARE DIRECTOR Body Mass Index 24.57 11/28/2024 11:30 PM RESIDENT CARE DIRECTOR Plan of Treatment Health Maintenance Due Date Last Done Comments Colon Cancer Screening-Colonoscopy 1974 Prostate Cancer Screening-PSA 1974 Regular Well Visit/Exam 18-64 1992 Zoster Vaccine (1 of 2) 1993 Pneumococcal vaccine <65 (2 of 2 - PCV) 06/06/2015 06/06/2014 Influenza Vaccine (Season Ended) 2025 10/01/2023, 10/17/2019, 12/12/2018, Additional history exists Depression Screening 11/28/2025 11/28/2024, 09/28/20 24 DTaP/Tdap/Td Vaccine (2 - Td or Tdap) 11/15/2033 11/15/2023 Hepatitis B Screening Completed 03/13/2024 Hepatitis C Screening Completed 03/13/2024 Medical Devices Implanted Type Area Lsat Instructor Device Identifier Shelf Expiration Date Model / Serial / Lot Screw Screw Left: Knee David [place] Powerport Mri Airguard 8fr 1 Lumen Attachable Catheter Latex Free [id number] - [id number] Implanted:Qty: 1 on 11/11/2023 by Maximo Alejandra IV, MD at [facility] Right: Chest David Tommy [id number] 03/09/2025 [id number] / / [id number] Procedures Procedure Name Priority Date/Time Associated Diagnosis [...] of neck EGFR Routine 12/09/2024 4:30 AM RESIDENT CARE DIRECTOR DIFFERENTIAL AUTO Routine 12/09/2024 4:3 0 AM RESIDENT CARE DIRECTOR PHOSPHORUS Routine 12/09/2024 4:30 AM RESIDENT CARE DIRECTOR COMPREHENSIVE METABOLIC PANEL Routine 12/09/2024 4:30 AM RESIDENT CARE DIRECTOR MAGNESIUM Routine 12/09/2024 4:30 AM RESIDENT CARE DIRECTOR CBC WITH AUTO DIFFERENTIAL Routine 12/09/2024 4:30 AM RESIDENT CARE DIRECTOR POTASSIUM, WHOLE BLOOD Timed 12/08/2024 6:06 AM RESIDENT CARE DIRECTOR EGFR Routine 12/08/2024 2:08 AM RESIDENT CARE DIRECTOR DIFFERENTIAL AUTO Routine 12/08/2024 2:0 8 AM RESIDENT CARE DIRECTOR PHOSPHORUS Routine 12/08/2024 2:08 AM RESIDENT CARE DIRECTOR COMPREHENSIVE METABOLIC PANEL Routine 12/08/2024 2:08 AM RESIDENT CARE DIRECTOR MAGNESIUM Routine 12/08/2024 2:08 AM RESIDENT CARE DIRECTOR CBC WITH AUTO DIFFERENTIAL Routine 12/08/2024 2:08 AM RESIDENT CARE DIRECTOR PEP THERAPY Routine 12/07/2024 1:00 PM RESIDENT CARE DIRECTOR PEP THERAPY Routine 12/07/2024 8:00 AM RESIDENT CARE DIRECTOR EGFR Routine 12/07/2024 12:56 AM RESIDENT CARE DIRECTOR DIFFERENTIAL AUTO Routine 12/07/2024 12: 56 AM RESIDENT CARE DIRECTOR PHOSPHORUS Routine 12/07/2024 12:56 AM RESIDENT CARE DIRECTOR COMPREHENSIVE METABOLIC PANEL Routine 12/07/2024 12:56 AM RESIDENT CARE DIRECTOR MAGNESIUM Routine 12/07/2024 12:56 AM RESIDENT CARE DIRECTOR CBC WITH AUTO DIFFERENTIAL Routine 12/07/2024 12:56 AM RESIDENT CARE DIRECTOR HEPATITIS C ANTIBODY Routine 03/13/2024 5:12 AM [...] Dick Sanabria M.D. CH: ROSY Report ID: [id number] Reading Location: [id number] Procedure Note Dick Sanabria Jr., MD - [...] Dick Sanabria M.D. CH: ROSY Report ID: [id number] Reading Location: [place] [address] Dinesh Polo MD IMG PET PROCEDURES Final Re sult * POCT glucose (02/28/2025 1:03 PM CDT) Glucose, POC 92 70 - 199 mg/dL Comment:Testing performed by : [facility], [address] [place] [address], [place]., [address] Blood 02/28/2025 1:03 PM CDT 02/28/2025 1:03 PM CDT Dinesh Polo MD LAB POCT ORDERABLES - DEVIC E Final Result [facility] [address] Department [place] [address] * MRI Face W WO Contrast (02/07/2025 [...] and inferiorly about the left buccal and stonemason spaces to include variable non masslike enhancing signal abnormality of the left stonemason musculature and patchy marrow replacement within the [...] Donald Burden M.D. GABI: GABI Report ID: [id number] Reading Location: [id number] Procedure Note Donald Burden MD - 02/08/2025 [...] laterallyand inferiorly about the left buccal and stonemason spaces to include variablenon masslike enhancing signal abnormality of the left stonemason musculatureand patchy marrow replacement within the ramus [...] - Electronically signed by Donald Burden M.D. AGBI: GABI Report ID: [id number] Reading Location: [id number] Dinesh Polo MD IMG MRI PROCEDURES Final Re sult * CT [...] Farzaneh Sidhu D.O. PS: PS Report ID: [id number] Reading Location: [id number] Procedure Note Farzaneh Sidhu, DO - 02/09/2025 [...] Farzaneh Sidhu D.O. PS: PS Report ID: [id number] Reading Location: [place] [address] us Dinesh Polo MD IM CT PROCEDURES Final Res ult * CT [...] tumor infiltration throughout the left skull base, stonemason space, mandible and left tiago pharyngeal and [...] Nick Dawson M.D. LC: ABISAI Report ID: [id number] Reading Location: [id number] Procedure Note Maribell Dawson MD - 02/11/2025 [...] Nick Dawson M.D. LC: ABISAI Report ID: [id number] Reading Location: [place] [address] us Dinesh Polo MD IMG CT PROCEDURES Final Res ult * (ABNORMAL) Fentanyl Confirmation, Urine (12/17/2024 1:13 PM CDT) Fentanyl Conf, Ur Confirmed Positive(A) Cutoff 0.3ng/mL Comment:Testing performed by : [facility], [address] [place] [address]., [address] Acetylfentanyl Conf, Ur Does Not Confirm Cutoff 1 ng/mL MOJGAN Comment:Testing performed by : [facility], [address] [place] [address]., [address] Acrylfentanyl Conf, Ur Does Not Confirm Cutoff 1 ng/mL CERJASON Comment:Testing performed by : [facility], [address] [place]., [address] Furanylfentanyl Conf, Ur Does Not Confirm Cutoff 1 ng/mL [facility]Testing performed by : [facility], [address] [place]., [address] Fentanyl Metabolite (Norfentanyl) Conf, Ur Confirmed Positive(A) CutOff 5 ng/mL MOJGAN Comment:Testing performed by : [facility], [address] [place] [address]., [address] Xylazine MS Does Not Confirm Cutoff 1 ng/mL MOJGAN Comment: Interpretive Data This test detects the presence or absence of drug compounds using LC Tandem mass spectrometry and is not intended to assess compliance with prescribed medications. While this test is highly specific, false positive and false negative results may occur in very rare circumstances. Contact the laboratory for consultation, if needed. Performance characteristics were determined by the [facility] in a manner consistent with CLIA requirement and has not been cleared or approved by the U.S. Food and Drug Administration. Current interpretive data was last revised 2020. Testing performed by: [facility], [address] [facility], [place]., [address] Urine 12/17/2024 1:13 PM CDT 12/17/2024 6:06 PM CDT Dinesh Polo MD LAB URINE ORDERABLES Final Result MOJGAN HWANG [address] [facility] Department [place] [address] * (ABNORMAL) Drugs of Abuse Screen, Urine with Reflex Confirmation (12/17/2024 1:13 PM CDT) Pathologist [facility] Amphetamine, ur Not Detected CutOff 500ng/mL Comment: Interpretive Data - Amphetamines: Samples containing greater than 500 ng/mL d-methamphetamine or other cross-reacting amphetamine compounds are reported as positive. Amphetamine immunoassays are subject to significant false positive rates due to cross-reactivity of non-amphetamine drugs. Confirmatory testing required for definitive results. Current Interpretive Data was last reviewed 2023. Testing performed by: [address] [address] Barbiturates, ur Not Detected CutOff 200ng/mL MOJGAN HWANG Comment: Interpretive Data - Barbiturates: Samples containing greater than 200 ng/mL secobarbital or other cross-reacting barbiturate compounds are reported as positive. False positive and false negative results are possible. Confirmatory testing required for definitive results. Current Interpretive Data was last reviewed 2023. Testing performed by: [address] [address] Benzodiazepines, ur Not Detected CutOff 100ng/mL MOJGAN HWANG Comment: Interpretive Data - Benzodiazepines: Samples containing greater than 100 ng/mL nordiazepam or other cross-reacting compounds are reported as positive. False positive and false negative results are possible. Confirmatory testing required for definitive results. Current Interpretive Data was last reviewed 2023. Testing performed by: [address] [address] Cannabinoids, ur Screen Positive, presumptive (A) CutOff 50 ng/mL CERNER Comment: Interpretive Data - Cannabinoids: Samples containing greater than 50 ng/mL delta-9 THC -COOH or other cross- reacting compounds are reported as positive. False positive and false negative results are possible. Confirmatory testing required for definitive results. Current Interpretive Data was last reviewed 2023. Testing performed by: [address], [place]., [address] Cocaine, ur Not Detected CutOff 150ng/mL CERNER Comment: Interpretive Data - Cocaine: Samples containing greater than 150 ng/mL benzoylecgonine or other cross- reacting compounds are reported as positive. False positive and false negative results are possible. Confirmatory testing required for definitive results. Current Interpretive Data was last reviewed 2023. Testing performed by: [address] [address] Fentanyl, Ur Screen Positive, presumptive (A) CutOff 5 ng/mL CERNER Comment: Interpretive Data - Fentanyl: Samples containing greater than 1 ng/mL fentanyl or other cross-reacting fentanyl compounds are reported as positive. False positive and false negative results are possible. Confirmatory testing required for definitive results. Current Interpretive Data was last reviewed 2023. Testing performed by: [address] [address] Methadone, ur Screen Positive, presumptive (A) CutOff 300ng/mL CERNER Comment: Interpretive Data - Methadone: Samples containing greater than 300 ng/mL d,l-methadone or other cross-reacting compounds are reported as positive. False positive and false negative results are possible. Confirmatory testing required for definitive results. Current Interpretive Data was last reviewed 2023. Testing performed by: [address], [place]., [address] Opiates, ur Screen Positive, presumptive (A) CutOff 300ng/mL CERNER Comment: Interpretive Data - Opiates: Samples containing greater than 300 ng/mL morphine or other cross-reacting compounds are reported as positive. False positive and false negative results are possible. Confirmatory testing required for definitive results. Current Interpretive Data was last reviewed 2023. Testing performed by: [address] [address] Oxycodone, ur Not Detected CutOff 100ng/mL MOJGAN Comment: Interpretive Data - Oxycodone: Samples containing greater than 100 ng/mL oxycodone or other cross-reacting compounds are reported as positive. False positive and false negative results are possible. Confirmatory testing required for definitive results. Current Interpretive Data was last reviewed 2023. Testing performed by: [facility], [address] [place] [address]., [address] Phencyclidine, ur Not Detected CutOff 25 ng/mL MOJGAN Comment: Interpretive Data - Phencyclidine: Samples containing greater than 25 ng/mL phencyclidine or other cross-reacting compounds are reported as positive. False positive and false negative results are possible. Confirmatory testing required for definitive results. Current Interpretive Data was last reviewed 2023. Testing performed by: [address] [address] Urine Creatinine 52 mg/dL MOJGAN Comment: Interpretive Data Urine Creatinine: < 10 mg/dL is extremely dilute = or > 10 but < 20 mg/dL is dilute = or > 20 mg/dL is normal Current Interpretive Data was last revised on 2017. Testing performed by: [address] [address] Urine 12/17/2024 1:13 PM CDT 12/17/2024 1:44 PM CDT [facility]ative [facility] - 12/17/2024 2:24 PM CDT Drug of Abuse screening is performed by immunoassay for medical purposes only. This is not to be used for Pain Management purposes. If Detected, confirmation testing will be performed for Amphetamines, Cocaine, Fentanyl, Methadone, Opiates, Oxycodone or Phencyclidine. us Dinesh Polo MD LAB URINE ORDERABLES Final Result MOJGAN [address] [facility] Department [place] [address] * eGFR (12/17/2024 1:13 PM CDT) eGFR [...] was last reviewed 2021. Testing performed by: [address] [address] Blood 12/17/2024 1:13 PM CDT 12/17/2024 1:15 PM CDT Olivier Santos NP LAB BLOOD ORDERABLES F inal Result MOJGAN [address] [facility] Department [place] [address] * (ABNORMAL) Differential, auto (12/17/2024 1:13 PM CDT) Neutrophil abs 9.7(H) 1.5 - 6.5 K/cumm Comment:Testing performed by : [address] [address] Imm gran abs 0.1 0.0 - 0.1 K/cumm MOJGAN HWANG Comment:Testing performed by : [address] [address] Lymphocyte abs 0.4(L) 0.8 - 3.3 K/cumm MOJGAN Comment:Testing performed by : [address] [address] Monocyte abs 0.5 0.2 - 0.8 K/cumm MOJGAN Comment:Testing performed by : [address], [place]., [address] Eosinophil abs 0.0 0.0 - 0.5 K/cumm [facility] Comment:Testing performed by : [address] [address] Basophil abs 0.0 0.0 - 0.1 K/cumm [facility] Comment:Testing performed by : [address] [address] Neutrophil pct 89.6 % [facility] Comment: Interpretive Data Percent cell count reference ranges are not reported, since discordance with absolute values may lead to misinterpretation of CBC data. Current Interpretive Data was last revised on 2018. Testing performed by: [address] [address] Imm gran pct 1.1 % [facility] Comment: Interpretive Data Percent cell count reference ranges are not reported, since discordance with absolute values may lead to misinterpretation of CBC data. Current Interpretive Data was last revised on 2018. Testing performed by: [address] [address] Lymphocyte pct 4.1 % [facility] Comment: Interpretive Data Percent cell count reference ranges are not reported, since discordance with absolute values may lead to misinterpretation of CBC data. Current Interpretive Data was last revised on 2018. Testing performed by: [address] [address] Monocyte pct 5.0 % [facility] Comment: Interpretive Data Percent cell count reference ranges are not reported, since discordance with absolute values may lead to misinterpretation of CBC data. Current Interpretive Data was last revised on 2018. Testing performed by: [address] [address] Eosinophil pct 0.1 % [facility] Comment: Interpretive Data Percent cell count reference ranges are not reported, since discordance with absolute values may lead to misinterpretation of CBC data. Current Interpretive Data was last revised on 2018. Testing performed by: [facility], [address] [place] [address]., [address] Basophil pct 0.1 % MOJGAN HWANG Comment: Interpretive Data Percent cell count reference ranges are not reported, since discordance with absolute values may lead to misinterpretation of CBC data. Current Interpretive Data was last revised on 2018. Testing performed by: [facility], [address] [place] [address]., [address] Blood 12/17/2024 1:13 PM CDT 12/17/2024 1:15 PM CDT Olivier Santos NP LAB BLOOD ORDERABLES F inal Result MOJGAN HWANG [facility] Department [place] [address] * (ABNORMAL) Opiates Confirmation, Urine (12/17/2024 1:13 PM CDT) Codeine Conf, Ur Does Not Confirm CutOff 50 ng/mL Comment:Testing performed by : [facility], [address] [place]., [address] 6- Acetylmorphine Conf, Ur Does Not Confirm CutOff 10 ng/mL MOJGAN HWANG Comment:Testing performed by : [facility], [address] [place]., [address] Hydrocodone Conf, Ur Does Not Confirm CutOff 50 ng/mL MOJGAN HWANG Comment:Testing performed by : [facility], [address] [place]., [address] Morphine Conf, Ur Confirmed Positive(A) CutOff 50 ng/mL MOJGAN HWANG Comment:Testing performed by : [facility], [address] [place]., [address] Hydromorphone Conf, Ur Does Not Confirm CutOff [...] needed. Performance characteristics were determined by the [facility] in a manner consistent with CLIA requirement and has not been cleared or approved by the U.S. Food and Drug Administration. Current interpretive data was last revised 2020. Testing performed by: [facility], [address] [place]., [address] Urine 12/17/2024 1:13 PM CDT 12/17/2024 6:06 PM CDT us Dinesh Polo MD LAB URINE ORDERABLES Final Result MOJGAN HWANG [address] [facility] Department [place] [address] * (ABNORMAL) Methadone Confirmation, Urine (12/17/2024 1:13 PM CDT) Methadone Conf, Ur Confirmed Positive Comment:Testing performed by : [facility], [address] [place]., [address] Methadone Metabolite (EDDP) Conf, Ur Confirmed Positive(A) [...] needed. Performance characteristics were determined by the [facility] in a manner consistent with CLIA requirement and has not been cleared or approved by the U.S. Food and Drug Administration. Current interpretive data was last revised 2020. Testing performed by: [facility], [address] [place]., [address] Urine 12/17/2024 1:13 PM CDT 12/17/2024 6:06 PM CDT us Dinesh Polo MD LAB URINE ORDERABLES Final Result [facility] [address] [facility] [place] [address] * (ABNORMAL) CBC with auto differential (12/17/2024 1:13 PM CDT) WBC 10.8(H) 3.8 - 9.9 K/cumm Comment:Testing performed by : [address] [address] Hgb 12.2(L) 13.0 - 17.5 g/dL MOJGAN Comment:Testing performed by : [address] [address] Hct 34.7(L) 38.9 - 50.3 % MOJGAN Comment:Testing performed by : [address] [address] Plt 143(L) 150 - 400 K/cumm MOJGAN Comment:Testing performed by : [address] [address] MPV 7.8(L) 9.1 - 12.3 fL MOJGAN Comment:Testing performed by : [address], [address] RBC 3.86(L) 4.30 - 5.80 M/cumm MOJGAN Comment:Testing performed by : [address] [address] MCV 89.9 81.3 - 96.4 fL MOJGAN Comment:Testing performed by : [address] [address] MCH 31.6 27.1 - 33.3 pg MOJGAN Comment:Testing performed by : [address] [address] MCHC 35.2 32.3 - 35.7 g/dL MOJGAN Comment:Testing performed by : [address] [address] RDW CV 13.0 11.1 - 14.9 % MOJGAN Comment:Testing performed by : [address], [address] RDW SD 42.8 35.7 - 48.1 fL MOJGAN HWANG Comment:Testing performed by : [address] [address] NRBC abs 0.00 0.00 - 0.01 K/cumm MOJGAN HWANG Comment:Testing performed by : [address] [address] Blood 12/17/2024 1:13 PM CDT 12/17/2024 1:15 PM CDT us Olivier Santos FRUIT [employer] NUT [employer]ICKER LAB BLOOD ORDERABLES F inal Result MOJGNA [address] [facility] Department [place] [address] * (ABNORMAL) Comprehensive metabolic panel (12/17/2024 1:13 PM CDT) Sodium 128(L) 135 - 145 mmol/L Comment:Testing performed by : [address] [address] Potassium, pl 4.4 3.3 - 4.9 mmol/L MOJGAN Comment:Testing performed by : [address] [address] Chloride 93(L) 97 - 110 mmol/L MOJGAN Comment:Testing performed by : [address] [address] CO2 25 22 - 32 mmol/L MOJGAN Comment:Testing performed by : [address] [address] Anion gap 10 2 - 15 mmol/L MOJGAN Comment:Testing performed by : [address] [address] BUN 31(H) 6 - 25 mg/dL MOJGAN Comment:Testing performed by : [address] [address] Creatinine 1.20 0.80 - 1.30 mg/dL MOJGAN Comment:Testing performed by : [address] [address] Glucose 112 70 - 199 mg/dL MOJGAN Comment: Interpretive Data Fasting glucose >/= 126 [...] was last revised 2022. Testing performed by: [address] [address] Calcium 8.9 8.5 - 10.3 mg/dL MOJGAN Comment:Testing performed by : [address] [address] Bilirubin, total 0.2 0.1 - 1.2 mg/dL MOJGAN Comment:Testing performed by : [address] [address] Protein, pl 6.4(L) 6.5 - 8.5 g/dL MOJGAN Comment:Testing performed by : [address] [address] Albumin 4.2 3.5 - 5.0 g/dL MOJGAN Comment:Testing performed by : [address] [address] Alk phos 63 40 - 130 Units/L [facility] Comment:Testing performed by : [address] [address] ALT 20 7 - 55 Units/L MOJGAN Comment:Testing performed by : [address] [address] AST 12 10 - 50 Units/L MOJGAN Comment:Testing performed by : [address] [address] Blood 12/17/2024 1:13 PM CDT 12/17/2024 1:15 PM CDT Olivier Santos NP LAB BLOOD ORDERABLES F inal Result MOJGAN [facility] [address] [facility] Department [place] [address] * eGFR (12/09/2024 4:30 AM RESIDENT CARE DIRECTOR) eGFR 74 >=60 mL/min/1. 73 m2 Comment: [...] last reviewed 2021. Blood 12/09/2024 4:30 AM RESIDENT CARE DIRECTOR 12/09/2024 1:01 AM RESIDENT CARE DIRECTOR us Terri Chavez MD PhD LAB BLOOD ORDERABLES Final Result Performing Organization Address City/[facility]/ZIP Co de Phone Number MOJGAN GARZA [facility] Department [place] [address] * (ABNORMAL) Differential, auto (12/09/2024 4:30 AM RESIDENT CARE DIRECTOR) Neutrophil abs 7.8(H) 1.5 - 6.5 K/cumm Imm gran abs 0.1 0.0 - 0.1 K/cumm [facility] Lymphocyte abs 0.6(L) 0.8 - 3.3 K/cumm [facility] Monocyte abs 0.9(H) 0.2 - 0.8 K/cumm [facility] Eosinophil abs 0.0 0.0 - 0.5 K/cumm [facility] Basophil abs 0.0 0.0 - 0.1 K/cumm [facility] Neutrophil pct 82.8 % [facility] Comment: Interpretive Data Percent cell count reference ranges are not reported, since discordance with absolute values may lead to misinterpretation of CBC data. Current Interpretive Data was last revised on 2018. Imm gran pct 1.1 % [facility] Comment: Interpretive Data Percent cell count reference ranges are not reported, since discordance with absolute values may lead to misinterpretation of CBC data. Current Interpretive Data was last revised on 2018. Lymphocyte pct 6.3 % [facility] Comment: Interpretive Data Percent cell count reference ranges are not reported, since discordance with absolute values may lead to misinterpretation of CBC data. Current Interpretive Data was last revised on 2018. Monocyte pct 9.5 % [facility] Comment: Interpretive Data Percent cell count reference ranges are not reported, since discordance with absolute values may lead to misinterpretation of CBC data. Current Interpretive Data was last revised on 2018. Eosinophil pct 0.1 % [facility] Comment: Interpretive Data Percent cell count reference ranges are not reported, since discordance with absolute values may lead to misinterpretation of CBC data. Current Interpretive Data was last revised on 2018. Basophil pct 0.2 % [facility] Comment: Interpretive Data Percent cell count reference ranges are not reported, since discordance with absolute values may lead to misinterpretation of CBC data. Current Interpretive Data was last revised on 2018. Blood 12/09/2024 4:30 AM RESIDENT CARE DIRECTOR 12/09/2024 1:01 AM RESIDENT CARE DIRECTOR us Terri Chavez MD PhD LAB BLOOD ORDERABLES Final Result MOJGAN [facility] [place] [address] * (ABNORMAL) CBC with auto differential (12/09/2024 4:30 AM RESIDENT CARE DIRECTOR) WBC 9.4 3.8 - 9.9 K/cumm Hgb 11.0(L) 13.0 - 17.5 g/dL [facility] Hct 32.8(L) 38.9 - 50.3 % [facility] Plt 138(L) 150 - 400 K/cumm [facility] MPV 8.3(L) 9.1 - 12.3 fL [facility] RBC 3.49(L) 4.30 - 5.80 M/cumm [facility] MCV 94.0 81.3 - 96.4 fL [facility] MCH 31.5 27.1 - 33.3 pg [facility] MCHC 33.5 32.3 - 35.7 g/dL [facility] RDW CV 13.2 11.1 - 14.9 % [facility] RDW SD 44.7 35.7 - 48.1 fL [facility] NRBC abs 0.00 0.00 - 0.01 K/cumm [facility] Blood 12/09/2024 4:30 AM RESIDENT CARE DIRECTOR 12/09/2024 1:01 AM RESIDENT CARE DIRECTOR us Terri Chavez MD PhD LAB BLOOD ORDERABLES Final Result [facility] [place] [place] [address] * Phosphorus (12/09/2024 4:30 AM RESIDENT CARE DIRECTOR) Pathologist [facility] Phosphorus, pl 3.3 2.3 - 4.5 mg/dL Blood 12/09/2024 4:30 AM RESIDENT CARE DIRECTOR 12/09/2024 1:01 AM RESIDENT CARE DIRECTOR us Terri Chavez MD PhD LAB BLOOD ORDERABLES Final Result [facility] [place] [place] [address] * Magnesium (12/09/2024 4:30 AM RESIDENT CARE DIRECTOR) Pathologist [facility] Magnesium 2.1 1.4 - 2.5 mg/dL Blood 12/09/2024 4:30 AM RESIDENT CARE DIRECTOR 12/09/2024 1:01 AM RESIDENT CARE DIRECTOR us Terri Chavez MD PhD LAB BLOOD ORDERABLES Final Result [facility] One [facility] [place] [address] * (ABNORMAL) Comprehensive metabolic panel (12/09/2024 4:30 AM RESIDENT CARE DIRECTOR) Sodium 139 135 - 145 mmol/L Potassium, pl 4.5 3.3 - 4.9 mmol/L [facility] Chloride 98 97 - 110 mmol/L [facility] CO2 31 22 - 32 mmol/L [facility] Anion gap 10 2 - 15 mmol/L [facility] BUN 27(H) 6 - 25 mg/dL [facility] Creatinine 1.19 0.80 - 1.30 mg/dL [facility] Glucose 102 70 - 199 mg/dL [facility] Comment: Interpretive Data Fasting glucose >/= [...] Calcium 9.0 8.5 - 10.3 mg/dL [facility] Bilirubin, total <0.2 0.1 - 1.2 mg/dL [facility] Protein, pl 6.1(L) 6.5 - 8.5 g/dL [facility] Albumin 3.8 3.5 - 5.0 g/dL [facility] Alk phos 59 40 - 130 Units/L [facility] ALT 8 7 - 55 Units/L [facility] AST 14 10 - 50 Units/L [facility] Blood 12/09/2024 4:30 AM RESIDENT CARE DIRECTOR 12/09/2024 1:01 AM RESIDENT CARE DIRECTOR us Terri Chavez MD PhD LAB BLOOD ORDERABLES Final Result Performing Organization Address City/[facility] Co de Phone Number [facility] [place] [address] * Potassium, whole blood (12/08/2024 6:06 AM RESIDENT CARE DIRECTOR) Potassium, bld 4.4 3.3 - 4.9 mmol/L Blood 12/08/2024 6:06 AM RESIDENT CARE DIRECTOR 12/08/2024 6:12 AM RESIDENT CARE DIRECTOR us Gordon Mesa MD LAB BLOOD ORDERABLES Final Resul t Performing Organization Address [facility] de Phone Number [facility] [place] [address] * eGFR (12/08/2024 2:08 AM RESIDENT CARE DIRECTOR) eGFR 72 >=60 mL/min/1. 73 m2 Comment: [...] last reviewed 2021. Blood 12/08/2024 2:08 AM RESIDENT CARE DIRECTOR 12/08/2024 2:22 AM RESIDENT CARE DIRECTOR us Terri Chavez MD PhD LAB BLOOD ORDERABLES Final Result [facility] Department [place] [address] * (ABNORMAL) Differential, auto (12/08/2024 2:08 AM RESIDENT CARE DIRECTOR) Neutrophil abs 8.2(H) 1.5 - 6.5 K/cumm Imm gran abs 0.1 0.0 - 0.1 K/cumm [facility] [facility] Lymphocyte abs 0.4(L) 0.8 - 3.3 K/cumm [facility] Monocyte abs 0.7 0.2 - 0.8 K/cumm [facility] Eosinophil abs 0.0 0.0 - 0.5 K/cumm [facility] Basophil abs 0.0 0.0 - 0.1 K/cumm [facility] Neutrophil pct 87.5 % [facility] Comment: Interpretive Data Percent cell count reference ranges are not reported, since discordance with absolute values may lead to misinterpretation of CBC data. Current Interpretive Data was last revised on 2018. Imm gran pct 1.2 % [facility] Comment: Interpretive Data Percent cell count reference ranges are not reported, since discordance with absolute values may lead to misinterpretation of CBC data. Current Interpretive Data was last revised on 2018. Lymphocyte pct 3.9 % [facility] Comment: Interpretive Data Percent cell count reference ranges are not reported, since discordance with absolute values may lead to misinterpretation of CBC data. Current Interpretive Data was last revised on 2018. Monocyte pct 7.3 % [facility] Comment: Interpretive Data Percent cell count reference ranges are not reported, since discordance with absolute values may lead to misinterpretation of CBC data. Current Interpretive Data was last revised on 2018. Eosinophil pct 0.0 % [facility] Comment: Interpretive Data Percent cell count reference ranges are not reported, since discordance with absolute values may lead to misinterpretation of CBC data. Current Interpretive Data was last revised on 2018. Basophil pct 0.1 % [facility] Comment: Interpretive Data Percent cell count reference ranges are not reported, since discordance with absolute values may lead to misinterpretation of CBC data. Current Interpretive Data was last revised on 2018. Blood 12/08/2024 2:08 AM RESIDENT CARE DIRECTOR 12/08/2024 2:22 AM RESIDENT CARE DIRECTOR Terri Chavez MD PhD LAB BLOOD ORDERABLES Final Result Performing Organization Address City/[facility]/ZIP Co de Phone Number [facility] [place] [employer] [place] [address] * (ABNORMAL) CBC with auto differential (12/08/2024 2:08 AM RESIDENT CARE DIRECTOR) Pathologist [facility] WBC 9.3 3.8 - 9.9 K/cumm Hgb 10.8(L) 13.0 - 17.5 g/dL [facility] Hct 33.2(L) 38.9 - 50.3 % [facility] Plt 146(L) 150 - 400 K/cumm [facility] MPV 8.2(L) 9.1 - 12.3 fL [facility] RBC 3.50(L) 4.30 - 5.80 M/cumm [facility] MCV 94.9 81.3 - 96.4 fL [facility] MCH 30.9 27.1 - 33.3 pg [facility] MCHC 32.5 32.3 - 35.7 g/dL [facility] RDW CV 13.2 11.1 - 14.9 % [facility] RDW SD 45.1 35.7 - 48.1 fL [facility] NRBC abs 0.00 0.00 - 0.01 K/cumm [facility] Blood 12/08/2024 2:08 AM RESIDENT CARE DIRECTOR 12/08/2024 2:22 AM RESIDENT CARE DIRECTOR us Terri Chavez MD PhD LAB BLOOD ORDERABLES Final Result Performing Organization Address City/[facility]/ZIP Co de Phone Number [facility] Department [place] [address] * Phosphorus (12/08/2024 2:08 AM RESIDENT CARE DIRECTOR) [facility] Phosphorus, pl 4.3 2.3 - 4.5 mg/dL Blood 12/08/2024 2:08 AM RESIDENT CARE DIRECTOR 12/08/2024 2:22 AM RESIDENT CARE DIRECTOR Terri Chavez MD PhD LAB BLOOD ORDERABLES Final Result Performing Organization Address City/[facility]/ZIP Co de Phone Number [facility] Department [place] [address] * Magnesium (12/08/2024 2:08 AM RESIDENT CARE DIRECTOR) [facility] Magnesium 2.0 1.4 - 2.5 mg/dL Blood 12/08/2024 2:08 AM RESIDENT CARE DIRECTOR 12/08/2024 2:22 AM RESIDENT CARE DIRECTOR Terri Chavez MD PhD LAB BLOOD ORDERABLES Final Result Performing Organization Address [facility] de Phone Number [facility] Department [place] [address] * (ABNORMAL) Comprehensive metabolic panel (12/08/2024 2:08 AM RESIDENT CARE DIRECTOR) [facility] Sodium 139 135 - 145 mmol/L Potassium, pl 5.1(H) 3.3 - 4.9 mmol/L [facility] Comment:Hemolyzed; Potassium value may be falsely elevated by as much as 0.3-0.5 mmol/L. Suggest redraw and reanalysis. Chloride 101 97 - 110 mmol/L [facility] CO2 31 22 - 32 mmol/L [facility] Anion gap 7 2 - 15 mmol/L [facility] BUN 25 6 - 25 mg/dL [facility] Creatinine 1.22 0.80 - 1.30 mg/dL [facility] Glucose 107 70 - 199 mg/dL [facility] Comment: Interpretive Data Fasting glucose >/= [...] 2022. Calcium 9.0 8.5 - 10.3 mg/dL [facility] Bilirubin, total <0.2 0.1 - 1.2 mg/dL [facility] Protein, pl 6.3(L) 6.5 - 8.5 g/dL [facility] Albumin 3.8 3.5 - 5.0 g/dL [facility] Alk phos 62 40 - 130 Units/L [facility] ALT 13 7 - 55 Units/L [facility] AST 24 10 - 50 Units/L [facility] Comment:Hemolyzed; result ma y be falsely elevated Blood 12/08/2024 2:08 AM RESIDENT CARE DIRECTOR 12/08/2024 2:22 AM RESIDENT CARE DIRECTOR us Terri Chavez MD PhD LAB BLOOD ORDERABLES Final Result [facility] Department [place] [address] * eGFR (12/07/2024 12:56 AM RESIDENT CARE DIRECTOR) eGFR 78 >=60 mL/min/1. 73 m2 Comment: [...] reviewed 2021. Blood 12/07/2024 12:5 6 AM RESIDENT CARE DIRECTOR 12/07/2024 1:08 AM RESIDENT CARE DIRECTOR us Terri Chavez MD PhD LAB BLOOD ORDERABLES Final Result [facility] Department [place] [address] * (ABNORMAL) Differential, auto (12/07/2024 12:56 AM RESIDENT CARE DIRECTOR) Neutrophil abs 5.1 1.5 - 6.5 K/cumm Imm gran abs 0.1 0.0 - 0.1 K/cumm [facility] Lymphocyte abs 0.2(L) 0.8 - 3.3 K/cumm [facility] Monocyte abs 0.4 0.2 - 0.8 K/cumm [facility] Eosinophil abs 0.0 0.0 - 0.5 K/cumm [facility] Basophil abs 0.0 0.0 - 0.1 K/cumm [facility] Neutrophil pct 88.8 % [facility] Comment: Interpretive Data Percent cell count reference ranges are not reported, since discordance with absolute values may lead to misinterpretation of CBC data. Current Interpretive Data was last revised on 2018. Imm gran pct 1.2 % [facility] Comment: Interpretive Data Percent cell count reference ranges are not reported, since discordance with absolute values may lead to misinterpretation of CBC data. Current Interpretive Data was last revised on 2018. Lymphocyte pct 3.5 % [facility] Comment: Interpretive Data Percent cell count reference ranges are not reported, since discordance with absolute values may lead to misinterpretation of CBC data. Current Interpretive Data was last revised on 2018. Monocyte pct 6.3 % [facility] Comment: Interpretive Data Percent cell count reference ranges are not reported, since discordance with absolute values may lead to misinterpretation of CBC data. Current Interpretive Data was last revised on 2018. Eosinophil pct 0.0 % [facility] Comment: Interpretive Data Percent cell count reference ranges are not reported, since discordance with absolute values may lead to misinterpretation of CBC data. Current Interpretive Data was last revised on 2018. Basophil pct 0.2 % [facility] Comment: Interpretive Data Percent cell count reference ranges are not reported, since discordance with absolute values may lead to misinterpretation of CBC data. Current Interpretive Data was last revised on 2018. Blood 12/07/2024 12:5 6 AM RESIDENT CARE DIRECTOR 12/07/2024 1:08 AM RESIDENT CARE DIRECTOR us Terri Chavez MD PhD LAB BLOOD ORDERABLES Final Result [facility] Department [place] [address] * (ABNORMAL) CBC with auto differential (12/07/2024 12:56 AM RESIDENT CARE DIRECTOR) WBC 5.7 3.8 - 9.9 K/cumm Hgb 10.8(L) 13.0 - 17.5 g/dL [facility] Hct 32.3(L) 38.9 - 50.3 % [facility] Plt 120(L) 150 - 400 K/cumm [facility] MPV 8.3(L) 9.1 - 12.3 fL [facility] RBC 3.43(L) 4.30 - 5.80 M/cumm [facility] MCV 94.2 81.3 - 96.4 fL [facility] MCH 31.5 27.1 - 33.3 pg [facility] MCHC 33.4 32.3 - 35.7 g/dL [facility] RDW CV 12.8 11.1 - 14.9 % [facility] RDW SD 43.5 35.7 - 48.1 fL [facility] NRBC abs 0.00 0.00 - 0.01 K/cumm [facility] Blood 12/07/2024 12:5 6 AM RESIDENT CARE DIRECTOR 12/07/2024 1:08 AM RESIDENT CARE DIRECTOR Terri Chavez MD PhD LAB BLOOD ORDERABLES Final Result Performing Organization Address [facility] Co de Phone Number [facility] [place] [address] * (ABNORMAL) Phosphorus (12/07/2024 12:56 AM RESIDENT CARE DIRECTOR) [facility] Phosphorus, pl 1.9(L) 2.3 - 4.5 mg/dL Blood 12/07/2024 12:5 6 AM RESIDENT CARE DIRECTOR 12/07/2024 1:08 AM RESIDENT CARE DIRECTOR Result [facility] Terri Chavez MD PhD LAB BLOOD ORDERABLES Final Result Performing Organization Address [facility] Co de Phone Number [facility] [place] [address] * Magnesium (12/07/2024 12:56 AM RESIDENT CARE DIRECTOR) [facility] Magnesium 1.7 1.4 - 2.5 mg/dL Blood 12/07/2024 12:5 6 AM RESIDENT CARE DIRECTOR 12/07/2024 1:08 AM RESIDENT CARE DIRECTOR Result [facility] Terri Chavez MD PhD LAB BLOOD ORDERABLES Final Result Performing Organization Address [facility] [place] [address] * (ABNORMAL) Comprehensive metabolic panel (12/07/2024 12:56 AM RESIDENT CARE DIRECTOR) [facility] Sodium 143 135 - 145 mmol/L Potassium, pl 4.2 3.3 - 4.9 mmol/L [facility] Chloride 101 97 - 110 mmol/L [facility] CO2 36(H) 22 - 32 mmol/L [facility] Anion gap 6 2 - 15 mmol/L [facility] BUN 23 6 - 25 mg/dL [facility] Creatinine 1.14 0.80 - 1.30 mg/dL [facility] Glucose 157 70 - 199 mg/dL [facility] Comment: Interpretive Data Fasting glucose >/= [...] 2022. Calcium 9.2 8.5 - 10.3 mg/dL [facility] Bilirubin, total <0.2 0.1 - 1.2 mg/dL [facility] Protein, pl 6.2(L) 6.5 - 8.5 g/dL [facility] Albumin 3.9 3.5 - 5.0 g/dL [facility] Alk phos 65 40 - 130 Units/L [facility] ALT 11 7 - 55 Units/L [facility] AST 15 10 - 50 Units/L [facility] Blood 12/07/2024 12:5 6 AM RESIDENT CARE DIRECTOR 12/07/2024 1:08 AM RESIDENT CARE DIRECTOR us Terri Chavez MD PhD LAB BLOOD ORDERABLES Final Result [facility] [place] [address] * Hepatitis C antibody Blood (03/13/2024 5:12 AM CDT) Hep C Ab Nonreactive Nonreactive Comment:Antibodies to HCV no t detected. Does NOT exclude the possibility of recent exposure to HCV. Current interpretive data was last revised on 22 Blood 03/13/2024 5:12 AM CDT 03/13/2024 5:40 AM CDT us Tru Munoz MD LAB MICROBIOLOGY - GEN ERAL ORDERABLES Final Result [facility] Department [place] [address] from Last 3 Months or Most Recently Relevant to Health Maintenance Insurance [place] [employer] [facility] [place] [address] Advance Directives For more information, please contact: [phone] * Full Code (Latest Code Status on [...] 1:40 AM 07/17/2024 12:16 AM Care Teams Technology Services Manager Relationship Specialty Start Date End Date No, Physician PCP - General 01/05/18 Pb Rodriges MD Radiation Oncologist Radiation Oncology 10/12/23 Dinesh Polo MD [address] [facility] [address] [place] [address] Medical Oncologist/Car Electronics Installer Medical Oncology 10/19/23 Maya Teague MD [facility] [address] [place] [address] Consulting Physician Hospice and Palliative Medicine 05/31/24 Ana Andre, RN Registered Nurse Pulmonary Disease 12/12/24
--- OUTSIDE RECORDS SUMMARY | 2025-03-09 15:34 | XMS_ITS | Continuity of Care Document ---
Author Organization [facility] Address [address] [place] [address] Phone Care Team Providers Care Supervisor [employer] Name Role Phone Best NEUMANN, Andi Unavailable [...] MIN Jamil Fritz e, [address], [place], [place], [address] , [place] tel: [phone] [facility] Follow up (chief complaint) Body mass index (BMI) 24.0-24.9, adultCancer NOSLymphadenop athyDisease of jaws, unspecifiedEnc ounter for screening for other disorder 3 Best Escamilla. [address], [place], [place], [address], [place]. tel:[phone] Referring Provider: Andi pimentel, [address], [place], [address] . tel:[phone] [facility], [address], [place], [place], [address] , [place] tel: [phone] [facility] No Information 3 Best Escamilla. [address], [place], [place], [address], [place]. tel:[phone] OFFICE OUTPT EST 25 MIN [facility], [address], [place], [place], [address] , [place] tel: [phone] [facility] Checkup (chief complaint) Body mass index (BMI) 35.0-35.9, adultAnxietyCh ronic pain due to traumaMuscle atrophy of lt thighPain in left kneeUnspecifie d internal derangement of left knee 2 Best Escamilla. [address], [place], [place], [address], [place]. tel:[phone] Referring Provider: Andi pimentel, [address], [place], [address] . tel:[phone] OFFICE/OUTPATI ENT VISIT, EST [facility], [address], [place], [place], [address] , [place] tel:[phone] [facility] med refill (chief complaint) Body mass index (BMI) 37.0-37.9, adultEncounter for issue of repeat prescriptionEn counter for screening for other disorder 2 G[address]me[address] Lion. [address], [place], [place], [address], [place]. tel:[phone] OFFICE/OUTPATI ENT VISIT, EST [facility], [address], [place], [place], [address] , [place] tel: [phone] T [facility] TELEHEALTH VISIT (chief complaint) Upper respiratory infection 0 No Information PERIODIC COMPREHENSIVE PREVENTIVE MED REE/M; ESTABLISHED PATIENT; 40-64 [facility], [address], [place], [place], [address] , tel: [phone] [facility] checkup (chief complaint) Body mass index (BMI) 31.0-31.9, adultEncntr for general adult medical exam w/o abnormal findingsChroni c pain due to traumaEncounte r for immunization 0 Best Escamilla. [address], [place], [place], [address], [place]. tel:[phone] OFFICE/OUTPATI ENT VISIT, EST [facility], [address], [place], [place], [address] , [place] tel: [phone] [facility] asthma/rt earache (chief complaint) Body mass index (BMI) 29.0-29.9, adultCoughAlle rgic rhinitis, unspecifiedEnc ounter for issue of repeat prescription 9 G[address] Lion. [address], [place], [place], [address], [place]. tel:[phone] OFFICE OUTPT EST 25 MIN [facility], [address], [place], [place], [address] , [place] tel: [phone] [facility] Chronic pain (chief complaint)P ulm nodules (chief complaint)S welling feet, groin (chief complaint) Localized swelling, mass and lump, lower limb, bilateralPelvi c swelling w/ lumpOther nonspecific abnormal finding of lung fieldPain in left kneeUnspecifie d internal derangement of left kneePain in left hip 9 Best Escamilla. [address], [place], [place], [address], [place]. tel:[phone] Referring Provider: Georges Moise, [address], [place], [address] . tel:[phone] OFFICE/OUTPATI ENT VISIT, EST [facility], [address], [place], [place], [address] , tel:[phone] Urgent Care back pain and fever (chief complaint) Back painChronic pain due to traumaEncounte r for screening, unspecified 9 Jose Maria Su. [address], [place], [place], [address], . tel:[phone] Referring Provider: Georges Moise, [address], [place], [address] . tel:[phone] OFFICE OUTPT EST 25 MIN [facility], [address], [place], [place], [address] , [place] tel: [phone] [facility] Chest Cold/Rt Ear Complaint/S wollen Glands (chief complaint) Body mass index (BMI) 24.0-24.9, adultCoughEnco unter for immunizationAs thma w/ exacerbationAn xietyEncounter for screening for other disorderEncoun ter for screening, unspecified 9 No Information Referring Provider: Georges Moise, [address], [place], [address] . tel:[phone] OFFICE OUTPT EST 25 MIN [facility], [address], [place], [place], [address] , [place] tel: [phone] [facility] Follow up (chief complaint) Chronic pain due to traumaAbnormal finding on diagnostic imaging of other specified body structureConge nital malformation of kneeDepression Muscle atrophy of lt thighPain in left kneePersonal history of self-harmUnspe cified internal derangement of left knee 8 Best Escamilla. [address], [place], [place], [address], [place]. tel:[phone] Referring Provider: Andi pimentel, [address], [place], [address] . tel:[phone] [facility], [address], [place], [place], [address] , tel:[phone] [facility] No Information Dec-0 - 8 Best Escamilla. [address], [place], [place], [address], . tel:[phone] Referring Provider: Andi pimentel, [address], [place], [address] . tel:[phone] [facility], [address], [place], [address] [place] [address] , [place] tel:[phone] [facility] Chronic pain due to trauma 7 Best Escamilla. [address], [place], [address] [place] [address], [place]. tel:[phone] OFFICE OUTPT EST 25 MIN [facility], [address], [place], [address] [place] [address] , [place] tel: [phone] [facility] follow up (chief complaint) Chronic pain due to traumaCongenit al malformation of kneeMuscle atrophy of lt thighPain in left kneeUnspecifie d internal derangement of left kneeAbnormal finding on diagnostic imaging of other specified body structureCosto chondritisPers onal history of self-harm 7 Best Escamilla. [address], [place], [address] [place] [address], [place]. tel:[phone] Referring Provider: Andi pimentel, [address], [place], [address] . tel:[phone] [facility], [address], [place], [place], [address] , [place] tel: [phone] [facility] Abnormal finding on diagnostic imaging of other specified body structure 7 Best Escamilla. [address], [place], [address] [place] [address], [place]. tel:[phone] [facility], [address], [place], [place], [address] , [place] tel:[phone] [facility] Abnormal finding on diagnostic imaging of other specified body structure 7 Best Escamilla. [address], [place], [address] [place] [address], [place]. tel:[phone] OFFICE OUTPT EST 25 MIN [facility], [address], [place], [place], [address] , tel: [phone] [facility] Follow Up of mood, pain, opioid dependence, abn CXR (chief complaint) Chronic pain due to traumaAnxietyD epressionAssau lt by unspecified meansPain in right handAbnormal finding on diagnostic imaging of other specified body structure 7 Best Escamilla. [address], [place], [place], [address], [place]. tel:[phone] Referring Provider: Anid pimentel, [address], [place], [address] . tel:[phone] OFFICE/OUTPATI ENT VISIT, NEW [facility], [address], [place], [place], [address] , tel: [phone] [facility] establish care (chief complaint) Congenital malformation of kneePersonal history of self-harmUnspe cified internal derangement of left kneePain in left kneeChronic pain due to traumaMuscle atrophy of lt thighDepressio nAnxietyEncntr for general adult medical exam w/o abnormal findings 7 Best Escamilla. [address], [place], [address], [place]. tel:[phone] Referring Provider: Andi pimentel, [address], [place], [address] . tel:[phone] As per patient privacy policy some of [...] Record Payers Payer name Insurance type Covered constitution party ID Authoriza tion(s) Medicaid - Medical [id number] Medicaid - Medical [id number] Social History Type Description Quantity Date Captured [...] was on 01/20/22. He has moved to [place] and this is his last visit to [facility].He went to the ER a few months back due to Lymphadenopathy and was diagnosed with cancer. He isn't sure what the biopsy said. He started developing lymphadenopathy when on 09/01 it grew exponentially when he got hospitalised for 3 days. Since he wasn't insured in [place] he couldn't get proper treatment. His insurance starts in 11/02. [place]. [place] is ending on 09/26/23. Patient has long [...] Date Type Action Status Referral Referred To: [facility] Radiology [address] [place], [phone] Ordered: Referrals: Radiology. [facility] Radiology. Diagnostic testing Appointment date/timeframe: 03/29/2019 ordered Referral Referred To: [facility] Radiology #2 Ordered: Referrals: Radiology. [facility] Radiology #2. Diagnostic testing Appointment date/timeframe: 04/05/2019 ordered Referral Ordered: Referrals: Radiology. Location: [facility]. Diagnostic testing Appointment date/timeframe: 04/05/2019 ordered Referral Referred To: [facility] Ordered: Referrals: Pain Management. [facility]. Evaluate and treat ordered Referral Referred To: [facility] [address] [place], [phone] Ordered: Referrals: Pain Management. [facility]. Evaluate and treat Appointment date/timeframe: 01/06/2018 ordered Referral Referred To: [facility] Orthopedics [address] [place], [address] [phone] Ordered: Referrals: Orthopedics. [facility] Orthopedics. Evaluate and treat ordered Referral Referred To: [facility] Ordered: Referrals: Pain Management. [facility]. Evaluate and treat ordered Referral Referred To: [facility] CAT Scans [address] [place], [phone] Ordered: Referrals: Radiology. [facility] CAT Scans. Diagnostic testing ordered Referral Referred To: Christopher Lima LCSW [address] [place], [place], [phone] Ordered: Referrals: Behavioral Health. Christopher Lima LCSW. Evaluate and treat ordered Future Order: Lab Order CBC (inc ludes Differential and Platelets) ([id number]), Ordered on: Ordered Future Order: Lab Order Comprehe nsive Metabolic Panel ([id number]), Ordered on: Ordered Future Order: Lab Order Lipid Pa malena ([id number]), Ordered on: Ordered Future Order: Lab Order Urinalys is, Macroscopic (POC) (OC80), Ordered on: Ordered Future Order: Lab Order TSH with Reflex to Free T4 ([id number]), Ordered on: Ordered Nutrition Recommendation Nutrition therap [...] was on 01/20/22. He has moved to [place] and this is his last visit to [facility].He went to the ER a few months back due to Lymphadenopathy and was diagnosed with cancer. He isn't sure what the biopsy said. He started developing lymphadenopathy when on 09/01 it grew exponentially when he got hospitalised for 3 days. Since he wasn't insured in [place] he couldn't get proper treatment. His insurance starts in 11/02. He will be completely transitioning care to [place]. His insurance in [place] is ending on 09/26/23. Patient has long [...] current rxplans to schedule w/his PCP at [facility] to call in to work today d/t [...] had incidentally been noticed on imaging at [facility] ER.Chest CT ordered - never completed.Went [...] requesting these two refills now.[place] [facility]. Chest Cold/Rt Ear [...] no insurance and was being managed through [facility] formulary meds and referred to internal Pain [...] follow up Patient first se en at [facility] May 2017 to establish care and [...] no change. Chest CT subsequently ordered at [facility]. Patient got freaked out and thought he was having trouble breathing. He went to [facility] ER where CXR performed.CXR from U [...] no insurance and was being managed through [facility] formulary meds and referred to internal Pain Team (has not seen yet) but was informed Jamil does not manage chronic pain with narcotic medications. He now has insurance and would like to see a Circuit Designer. Follow Up of mood, p ain, opioid [...] Lymphadenopathy -Referral provided f or ER at [place]. 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 Related to Pain in left knee Continue Gabapentin 800mg 3x daily, Naproxen Related to Chronic pain due to trauma Prescribed activity/ exercise education Related to Body mass index [BMI] 35.0-35.9, adult Prescribed activity/ exercise education Related to Body mass index [BMI] 37.0-37.9, adult Loratadine 10mg QD, Flonase Nasal [place] 1-2 sprays in each nostril once daily, [...] to Body mass index (BMI) 29.0-29.9, adult See #1 Related to Pain in left hip U/S ordered Related to Pelvi c swelling w/ lump U/S ordered Related to Local ized swelling, mass and lump, lower limb, bilateral Chest CT w/o contrast Related to Other nonspecific abnormal finding of lung field See #1 Related to Unspe cified internal derangement of left knee Referral to OrthoPle ase obtain copies of your MRIs and bring to apptNaproxen for joint pain. Flexeril and Neurontin for chronic pain. Related to Pain in left knee Prescribed activity/ exercise education Related to Body mass index (BMI) 24.0-24.9, adult Will submit Pain Man agement referral to [...] diet and exercise and avoiding mind-altering substances.[facility] Hotline provided: ([phone]) Related to Depression Printed CAT Scan ref erral for patient to call and schedule appt. Related to Abnormal finding on diagnostic imaging of other specified body structure Due to chronicity of limited control pain [...] diagnostic imaging of other specified body structure Meds as listed.Pleas e apply to [facility]. Stop by today.Pain referral pending. Will reissue referral Related to Chronic pain due to trauma Hand x-ray today Related to Pain in right hand See #8 Related to Anxie ty Patient stable today ; No SA/SI, AH/VH, HI/HATreatment Plan: Sertaline 50mg qhs, Vistaril 25mg tid prn -- RTC 3 weeks; [facility] and [facility] and when to call 911 or go to the ER. Patient verbalized an understanding.Counseled on medication uses and potential side effects. Counseled on when to call the office. Patient verbalized an understanding.Discussed best treatment plan which includes medication, counseling, adequate sleep, healthy diet and exercise and avoiding mind-altering substances.[facility] Hotline provided: ([phone]) Related to Depression Will start Gabapenti n 300mg tid. Will [...]
[2025-03-09 15:36] VITALS: BP 113/78; PULSE 95; RESP 18; TEMP 36.4; O2SAT 96
== END 2025-03-09 16:22 | disposition home or self-care (01) ==
PROVIDERS: Emergency Provider Nurse Practitioner Family
DX: M77.32 Calcaneal spur, left foot (principal); Z79.899 Other long term (current) drug therapy
CPT/HCPCS: 73650; 99213; G0463